=== PATIENT | male | born 1965 | race Caucasian/White ===

== ENCOUNTER → 2019-02-07 | Outpatient (CLI) | payer OTHER ==
--- NOTE | 2019-02-08 09:20 | MR ---
EXAMINATION TYPE: MR shoulder RT wo con DATE OF EXAM: 02/07/2019 COMPARISON: Right shoulder x-rays dated 01/02/2019 2 HISTORY: Right shoulder pain TECHNIQUE: Multiplanar, multisequence imaging of the right shoulder is performed without contrast. FINDINGS: Rotator Cuff: There is a partial thickness tear of the anterior and mid fibers of the supraspinatus measuring 1.5 x 1.0 cm. There is underlying moderate supraspinatus tendinosis. Mild infraspinatus tendinosis is seen . Masses demonstrated as alteration in the intrinsic fiber signal. No discrete tear of the infraspina tus. Teres minor is of unremarkable signal and morphology. There is a partial thickness tear of the s ubscapularis tendon severe tendinopathy. Acromioclavicular Joint: Moderate acromioclavicular arthropathy with capsular hypertrophy, subchondra l cystic formation and small osteophytes. No significant impingement on the supraspinatus. Glenohumeral Joint: There is a small joint effusion. There are very small subcortical cysts of the la teral humeral head and a small osteophyte of the medial femoral head. Labrum: There appears to be a tear of the posterior superior glenoid labrum with a [address] Biceps Tendon: The long head of biceps is in normal location within bicipital groove. However there i s a split tear involving the intra-articular and extra articular portion of the lung the biceps tendo n with debris in the peritendinous fluid, likely hemorrhage. The insertion on the biceps anchor is no t well seen and could relate to full-thickness tear or extensive tendinosis. Bone marrow signal: No focal abnormal marrow signal is appreciated. IMPRESSION: 1. High-grade tear of the interarticular portion of the long head of biceps is presumed (versus sever e tendinosis) as there is poor visualization at the insertion. Split tear of the extra-articular port ion of the biceps tendon extending into the intra-articular portion is also seen. 2. Partial-thickness tear of the anterior and mid fibers of the supraspinatus measuring 1.5 x 1.0 cm. 3. Partial thickness tear of the subscapularis. 4. Mild infraspinatus tendinopathy patella moderate supraspinatus tendinopathy, and severe subscapula ris tendinopathy. 5. Tear of the posterior superior glenoid labrum with associated 2 mm paralabral cyst. 6. Moderate acromioclavicular arthropathy without supraspinatus impingement. Mild glenohumeral arthro little. Small joint effusion.
== END | disposition home or self-care (01) ==
LOC: RADMRIMAIN 10:38
PROVIDERS: ATTEND Orthopaedic Surgery
DX: M75.111 Incomplete rotator cuff tear or rupture of right shoulder, not specified as traumatic (principal); M12.811 Other specific arthropathies, not elsewhere classified, right shoulder; S43.401A Unspecified sprain of right shoulder joint, initial encounter

== ENCOUNTER → 2019-04-12 | Outpatient (CLI) | payer OTHER ==
[2019-04-12 12:27] LABS: Basophils % (A) 1 %; Eosinophils # (A) 0.2 k/uL (0-0.7); Eosinophils % (A) 5 %; HCT 33.9 % (39.0-53.0); HGB 11.3 gm/dL (13.0-17.5); Lymphocytes # (A) 1.4 k/uL (1.0-4.8); Lymphocytes % (A) 37 %; MCH 35.7 pg (25.0-35.0); MCHC 33.2 g/dL (31.0-37.0); MCV 107.7 fL (80.0-100.0); Macrocytosis Moderate; Mean Platelet Volume 8.8; Monocytes # (A) 0.4 k/uL (0-1.0); Monocytes % (A) 9 %; Neutrophils # (A) 1.6 k/uL (1.3-7.7); Neutrophils % (A) 44 %; RBC 3.15 m/uL (4.30-5.90); RDW 12.8 % (11.5-15.5); WBC 3.8 k/uL (3.8-10.6)
[2019-04-12 12:47] LABS: INR 1.6 (<1.2); Partial Thromboplastin Time 32.1 sec (22.0-30.0)
[2019-04-12 13:19] LABS: Platelet Count 38 k/uL (150-450)
[2019-04-12 13:26] LABS: Anisocytosis (M) Present
== END | disposition home or self-care (01) ==
LOC: LABPAT 11:49
PROVIDERS: ATTEND Orthopaedic Surgery
DX: Z01.812 Encounter for preprocedural laboratory examination (principal); R79.1 Abnormal coagulation profile; M75.41 Impingement syndrome of right shoulder; R79.9 Abnormal finding of blood chemistry, unspecified
CPT/HCPCS: 36415; 85025; 85610; 85730

== ENCOUNTER → 2019-04-14 | Day surgery (SDC) | payer OTHER ==
[2019-04-11 13:40] VITALS: BMI 38.7
--- NOTE | 2019-04-13 09:45 | HP ---
HISTORY AND PHYSICAL CHIEF COMPLAINT: Right shoulder pain. HISTORY OF PRESENT ILLNESS: The patient is a 54-year-old, right-hand dominant, semi-retired gentleman who presents with progressive right shoulder pain for the past 6 months. He is having pain with overhead use and at night. He has tried medications in addition to therapy and an injection with minimal to no improvement. He notes the pain limits him and bothers him daily. PAST MEDICAL HISTORY: Significant for depression, hypertension, and cirrhosis of the liver. PAST SURGICAL HISTORY: Significant for left total hip arthroplasty. CURRENT MEDICATIONS: 1. Lexapro. 2. Lisinopril. 3. Pantoprazole. ALLERGIES: He notes allergies to PENICILLIN. FAMILY HISTORY: Significant for heart disease and cancer. SOCIAL HISTORY: Significant for daily alcohol use. REVIEW OF SYSTEMS: Sixteen-point review of systems otherwise reviewed and is noncontributory. PHYSICAL EXAMINATION: On examination, the patient is approximately 5 feet 7 inches, 235 pounds of endomorphic habitus. HEENT exam is nonfocal. Neck is supple. On examination of the right shoulder, he is tender about the anterior glenohumeral joint and the bicipital groove. He has moderate subacromial crepitus. Active range of motion forward elevation 140 degrees, external rotation with arm at side 55 degrees, internal rotation to L3. Motor strength is 5 minus over 5 for external rotation, 4+ over 5 for abduction. Impingement test, Neer test are positive. Cross-body adduction test is positive. His distal neurovascular exam otherwise appears intact in the right upper extremity. MRI report right shoulder shows evidence of a high-grade intra-articular tear of the long head of the biceps in addition to partial-thickness tear of the supraspinatus. There is significant acromioclavicular joint arthritis. IMPRESSION: 1. Right shoulder impingement with partial thickness rotator cuff tear. 2. Right proximal bicipital tendinosis. 3. Right acromioclavicular joint osteoarthrosis. 4. History of cirrhosis. RECOMMENDATIONS: I talked to the patient at length regarding his condition along with treatment options. At this point, he is quite symptomatic despite conservative measures and opts to proceed with surgery. We will plan to proceed with right shoulder arthroscopy with probable subacromial decompression, rotator cuff debridement versus repair, possible biceps tenotomy, in addition to possible distal clavicular resection. We will likely perform that as an outpatient procedure. Risks and benefits were discussed at length in layman's terms. MMODL / IJN: [id number] /
[~2019-04-14] MED LIST: DEXAMETHASONE SOD PHOSPHATE 10 MG/ML 1 ML VIAL IV ONE; HYDROmorphone 0.5 MG/0.5 ML SYRINGE IVP PRN; LACTATED RINGERS 1,000 ML IV SCH; LIDOCAINE 1% 20 ML VIAL (10MG/ML) FOR IV START INTRADERMA PRN; ONDANSETRON 4 MG/2 ML VIAL IVP ONE
[2019-04-14 07:41] VITALS: BP 121/65; PULSE 67; RESP 16; TEMP 98.7
[2019-04-14 08:33] LABS: INR 1.6 (<1.2); Partial Thromboplastin Time 32.2 sec (22.0-30.0); Prothrombin Time 16.1 sec (9.0-12.0)
[2019-04-14 08:42] LABS: Basophils # (A) 0.1 k/uL (0-0.2); Basophils % (A) 1 %; Eosinophils # (A) 0.2 k/uL (0-0.7); Eosinophils % (A) 5 %; HCT 34.6 % (39.0-53.0); HGB 11.6 gm/dL (13.0-17.5); Lymphocytes # (A) 1.5 k/uL (1.0-4.8); Lymphocytes % (A) 39 %; MCH 35.6 pg (25.0-35.0); MCHC 33.6 g/dL (31.0-37.0); MCV 106.1 fL (80.0-100.0); Macrocytosis Slight; Mean Platelet Volume 7.4; Monocytes # (A) 0.4 k/uL (0-1.0); Monocytes % (A) 10 %; Neutrophils # (A) 1.6 k/uL (1.3-7.7); Neutrophils % (A) 41 %; RBC 3.26 m/uL (4.30-5.90); RDW 12.7 % (11.5-15.5); WBC 3.8 k/uL (3.8-10.6)
[2019-04-14 08:48] LABS: Platelet Count 42 k/uL (150-450)
== END ==
LOC: OR 07:04
PROVIDERS: ATTEND Orthopaedic Surgery
DX: M75.41 Impingement syndrome of right shoulder (principal); Z53.09 Procedure and treatment not carried out because of other contraindication; M19.011 Primary osteoarthritis, right shoulder; M75.111 Incomplete rotator cuff tear or rupture of right shoulder, not specified as traumatic; M75.21 Bicipital tendinitis, right shoulder; I10 Essential (primary) hypertension; F32.9 Major depressive disorder, single episode, unspecified; K74.60 Unspecified cirrhosis of liver; Z96.642 Presence of left artificial hip joint; Z79.899 Other long term (current) drug therapy; Z88.0 Allergy status to penicillin; Z82.49 Family history of ischemic heart disease and other diseases of the circulatory system
CPT/HCPCS: 85025; 85610; 85730; J1100; J2405

== ENCOUNTER → 2021-06-17 | Outpatient (CLI) | payer BC ==
--- NOTE | 2021-06-17 08:48 | US ---
EXAMINATION TYPE: US liver DATE OF EXAM: 06/17/2021 COMPARISON: NONE CLINICAL HISTORY: K70.30 ALCOHOLIC CIRRHOSIS OF LIVER WITHOUT ASCITIES. EXAM MEASUREMENTS: Liver Length: 16.2 cm Gallbladder Wall: 0.3 cm CBD: 0.5 cm Right Kidney: 12.2 x 6.2 x 5.1 cm No significant ascites identified Pancreas: Obscured by bowel gas Liver: somewhat lobular contour Gallbladder: multiple tiny mobile stones with shadowing. Evidence for sonographic Wilks's sign: No CBD: wnl Right Kidney: No hydronephrosis or masses seen IMPRESSION: 1. Cholelithiasis. Gallbladder wall 0.3 cm which is at the limits of normal. 2. Mild hepatomegaly
== END | disposition home or self-care (01) ==
LOC: RADUSWWP 06:57
PROVIDERS: ATTEND Internal Medicine Gastroenterology
DX: K80.20 Calculus of gallbladder without cholecystitis without obstruction (principal); R16.0 Hepatomegaly, not elsewhere classified
CPT/HCPCS: 76705

== ENCOUNTER 2022-02-19 14:36 | Inpatient (IN) | payer BC ==
[2022-02-19 18:27] LABS: ALT 42 U/L (4-49); AST 118 U/L (17-59); African American GFR (CKD) >90 (>60 ml/min/1.73 sqM); Albumin 3.3 g/dL (3.5-5.0); Alkaline Phosphatase 203 U/L (38-126); Anion Gap 7 mmol/L; Blood Urea Nitrogen 11 mg/dL (9-20); Carbon Dioxide 27 mmol/L (22-30); Chloride 106 mmol/L (98-107); Glucose 131 mg/dL (74-99); Non-African American GFR(CKD) >90 (>60 ml/min/1.73 sqM); Potassium 3.8 mmol/L (3.5-5.1); Sodium 140 mmol/L (137-145); Total Bilirubin 1.8 mg/dL (0.2-1.3); Total Protein 7.1 g/dL (6.3-8.2)
[2022-02-19 18:35] LABS: INR 1.3 (<1.2); Partial Thromboplastin Time 26.4 sec (22.0-30.0); Prothrombin Time 12.9 sec (9.0-12.0)
--- NOTE | 2022-02-19 18:36 | ED ---
General Adult HPI - General Chief complaint: Weakness Stated complaint: Low hemoglobin-sent by PCP Time Seen by Provider: 02/19/22 18:23 Source: patient, family, RN notes reviewed, old records reviewed Mode of arrival: ambulatory Limitations: no limitations - History of Present Illness Initial comments: This is a nontoxic appearing 57-year-old male that presents to the emergency room with a family member stating he was sent by his primary care doctor, Dr Fernandez for low hemoglobin. Patient does have a history of cirrhosis diagnosed 4 years ago also followed by Dr. Galindo. His cirrhosis is related to alcohol use. He did drink today, 1 small bottle of wine from a four pack. States he has been having dark diarrhea over the past couple of weeks which started after taking antibiotics for a urinary tract infection however today he did have a normal bowel movement. Denies any hematochezia. Denies any abdominal pain. No nausea or vomiting. Denies any chest pain or difficulty in breathing. Does state he feels weak. -: week(s) (3) Severity scale (1-10): 0 Consistency: constant Improves with: rest Associated Symptoms: other (diarrhea, ankle swelling) - Related Data Home Medications Medication Instructions Recorded Confirmed Escitalopram [Lexapro] 30 mg PO DAILY 04/11/19 02/19/22 Pantoprazole [Protonix] 40 mg PO DAILY 04/11/19 02/19/22 Propranolol [Inderal] 10 mg PO TID 04/11/19 02/19/22 Folic Acid 1 mg PO DAILY 02/19/22 02/19/22 Furosemide [Lasix] 40 mg PO DAILY PRN 02/19/22 02/19/22 Spironolactone [Aldactone] 50 mg PO DAILY PRN 02/19/22 02/19/22 Tolterodine ER [Detrol LA] 4 mg PO DAILY@1600 02/19/22 02/19/22 Allergies Allergy/AdvReac Type Severity Reaction Status Date / Time Penicillins Allergy Rash/Hives Verified 02/19/22 20:06 Review of Systems ROS Statement: Those systems with pertinent positive or pertinent negative responses have been documented in the HPI. ROS Other: All systems not noted in ROS Statement are negative. Past Medical History Past Medical History: GERD/Reflux, Hypertension, Liver Disease Additional Past Medical History / Comment(s): esophageal varices and cirrhosis of liver History of Any Multi-Drug Resistant Organisms: None Reported Past Surgical History: Joint Replacement, Tonsillectomy Additional Past Surgical History / Comment(s): lt total hip Past Anesthesia/Blood Transfusion Reactions: No Reported Reaction Past Psychological History: Anxiety, Depression Smoking Status: Never smoker Past Alcohol Use History: Daily Past Drug Use History: None Reported - Past Family History Mother Family Medical History: Cancer Additional Family Medical History / Comment(s): lung cancer General Exam Limitations: no limitations General appearance: alert, in no apparent distress Head exam: Present: atraumatic, normocephalic Eye exam: Present: normal appearance. Absent: scleral icterus, conjunctival injection, periorbital swelling, periorbital tenderness ENT exam: Present: mucous membranes moist Neck exam: Absent: tenderness, meningismus Respiratory exam: Present: normal lung sounds bilaterally. Absent: respiratory distress, wheezes, rales, rhonchi, stridor, chest wall tenderness, accessory muscle use Cardiovascular Exam: Present: regular rate GI/Abdominal exam: Present: soft. Absent: tenderness, rigid Extremities exam: Present: full ROM, normal capillary refill, pedal edema (Bilateral pitting). Absent: tenderness, calf tenderness Back exam: Absent: tenderness, CVA tenderness (R), CVA tenderness (L), paraspinal tenderness, vertebral tenderness, rash noted Neurological exam: Present: alert, oriented X3 Psychiatric exam: Present: normal affect, normal mood Skin exam: Present: warm, dry, normal color, pallor. Absent: cyanosis, diaphoretic, petechiae Course Vital Signs 02/19/22 02/19/22 02/19/22 16:08 18:42 18:54 Temperature 96.8 F L Pulse Rate 80 76 Respiratory 16 20 18 Rate Blood Pressure 97/48 120/60 O2 Sat by Pulse 97 96 Oximetry 02/19/22 02/19/22 02/19/22 20:20 20:46 21:30 Temperature 98.1 F 98.4 F Pulse Rate 80 80 75 Respiratory 18 18 18 Rate Blood Pressure 121/54 118/62 119/55 O2 Sat by Pulse 95 96 95 Oximetry EKG Findings - EKG Results: EKG: sinus rhythm (Sinus rhythm with a ventricular rate of 81, AZ interval 0 .130, QRS 0.109, QTC 0.447 normal axis.) Medical Decision Making - Medical Decision Making Patient presents with increased weakness, sent by primary care doctor after having labs drawn today showing a hemoglobin of 5. He denies any active bleedi ng, no hematochezia or hematemesis. Does have history of cirrhosis. On physical exam patient does have bilateral lower extremity edema. Denies any chest pain or shortness of breath. Abdomen is nontender. Hemoglobin 5.7 with a hematocrit of 19.7. Platelet count 60. Occult blood negative. He denies any blood thinners. White blood cell count of 2.7 with a history of leukopenia. Total bili 1.8 down from previous of 4.8. Patient does have a history of cirrhosis due to alcohol use. BNP 250. Chest x-ray interpreted by me shows increase lung markings with no focal consolidation. Radiologist interpretation borderline cardiomegaly, old right-sided rib fractures. No acute heart failure. EKG interpreted by me shows sinus rhythm with a ventricular rate of 81, AZ interval 0.130, QRS 0.109, QTC 0.447; normal axis. Troponin negative at 0.012. Vital signs are stable. Patient was given 1 unit of packed RBCs in ER. Second unit requested by Macrina Rubalcava. He will be admitted to the hospital with consult to Dr. Galindo. He is agreeable to this plan of care. Case discussed with Dr. Ramirez - Lab Data Result diagrams: 02/19/22 18:14 02/19/22 18:14 Lab Results 02/19/22 02/19/22 02/19/22 Range/Units 18:10 18:14 18:14 WBC 2.7 L (3.8-10.6) k/uL RBC 2.20 L (4.30-5.90) m/uL Hgb 5.7 L* (13.0-17.5) gm/dL Hct 19.7 L* (39.0-53.0) % MCV 89.2 (80.0-100.0) fL MCH 25.6 (25.0-35.0) pg MCHC 28.8 L (31.0-37.0) g/dL RDW 16.1 H (11.5-15.5) % Plt Count 60 L (150-450) k/uL MPV 10.3 Neutrophils % 50 % Lymphocytes % 33 % Monocytes % 7 % Eosinophils % 5 % Basophils % 1 % Neutrophils # 1.4 (1.3-7.7) k/uL Lymphocytes # 0.9 L (1.0-4.8) k/uL Monocytes # 0.2 (0-1.0) k/uL Eosinophils # 0.1 (0-0.7) k/uL Basophils # 0.0 (0-0.2) k/uL Hypochromasia Marked Poikilocytosis Slight Anisocytosis Slight PT 12.9 H (9.0-12.0) sec INR 1.3 H (<1.2) APTT 26.4 (22.0-30.0) sec Sodium (137-145) mmol/L Potassium (3.5-5.1) mmol/L Chloride (98-107) mmol/L Carbon Dioxide (22-30) mmol/L Anion Gap mmol/L BUN (9-20) mg/dL Creatinine (0.66-1.25) mg/dL Est GFR (CKD-EPI)AfAm (>60 ml/min/1.73 sqM) Est GFR (CKD-EPI)NonAf (>60 ml/min/1.73 sqM) Glucose (74-99) mg/dL Calcium (8.4-10.2) mg/dL Magnesium (1.6-2.3) mg/dL Total Bilirubin (0.2-1.3) mg/dL AST (17-59) U/L ALT (4-49) U/L Alkaline Phosphatase (38-126) U/L Troponin I (0.000-0.034) ng/mL NT-Pro-B Natriuret Pep pg/mL Total Protein (6.3-8.2) g/dL Albumin (3.5-5.0) g/dL Stool Occult Blood (Negative) Blood Type B Positive Blood Type Confirm Blood Type Recheck No Previous Record Bld Type Recheck Status CABO Indicated Antibody Screen NEGATIVE Crossmatch See Detail Spec Expiration Date 02/22/2022 - 231302/19/22 02/19/22 02/19/22 Range/Units 18:14 18:14 18:14 WBC (3.8-10.6) k/uL RBC (4.30-5.90) m/uL Hgb (13.0-17.5) gm/dL Hct (39.0-53.0) % MCV (80.0-100.0) fL MCH (25.0-35.0) pg MCHC (31.0-37.0) g/dL RDW (11.5-15.5) % Plt Count (150-450) k/uL MPV Neutrophils % % Lymphocytes % % Monocytes % % Eosinophils % % Basophils % % Neutrophils # (1.3-7.7) k/uL Lymphocytes # (1.0-4.8) k/uL Monocytes # (0-1.0) k/uL Eosinophils # (0-0.7) k/uL Basophils # (0-0.2) k/uL Hypochromasia Poikilocytosis Anisocytosis PT (9.0-12.0) sec INR (<1.2) APTT (22.0-30.0) sec Sodium 140 (137-145) mmol/L Potassium 3.8 (3.5-5.1) mmol/L Chloride 106 (98-107) mmol/L Carbon Dioxide 27 (22-30) mmol/L Anion Gap 7 mmol/L BUN 11 (9-20) mg/dL Creatinine 0.88 (0.66-1.25) mg/dL Est GFR (CKD-EPI)AfAm >90 (>60 ml/min/1.73 sqM) Est GFR (CKD-EPI)NonAf >90 (>60 ml/min/1.73 sqM) Glucose 131 H (74-99) mg/dL Calcium 8.0 L (8.4-10.2) mg/dL Magnesium (1.6-2.3) mg/dL Total Bilirubin 1.8 H (0.2-1.3) mg/dL AST 118 H (17-59) U/L ALT 42 (4-49) U/L Alkaline Phosphatase 203 H (38-126) U/L Troponin I <0.012 (0.000-0.034) ng/mL NT-Pro-B Natriuret Pep 250 pg/mL Total Protein 7.1 (6.3-8.2) g/dL Albumin 3.3 L (3.5-5.0) g/dL Stool Occult Blood (Negative) Blood Type Blood Type Confirm Blood Type Recheck Bld Type Recheck Status Antibody Screen Crossmatch Spec Expiration Date 1202/19/22 02/19/22 Range/Units 18:14 19:12 19:51 WBC (3.8-10.6) k/uL RBC (4.30-5.90) m/uL Hgb (13.0-17.5) gm/dL Hct (39.0-53.0) % MCV (80.0-100.0) fL MCH (25.0-35.0) pg MCHC (31.0-37.0) g/dL RDW (11.5-15.5) % Plt Count (150-450) k/uL MPV Neutrophils % % Lymphocytes % % Monocytes % % Eosinophils % % Basophils % % Neutrophils # (1.3-7.7) k/uL Lymphocytes # (1.0-4.8) k/uL Monocytes # (0-1.0) k/uL Eosinophils # (0-0.7) k/uL Basophils # (0-0.2) k/uL Hypochromasia Poikilocytosis Anisocytosis PT (9.0-12.0) sec INR (<1.2) APTT (22.0-30.0) sec Sodium (137-145) mmol/L Potassium (3.5-5.1) mmol/L Chloride (98-107) mmol/L Carbon Dioxide (22-30) mmol/L Anion Gap mmol/L BUN (9-20) mg/dL Creatinine (0.66-1.25) mg/dL Est GFR (CKD-EPI)AfAm (>60 ml/min/1.73 sqM) Est GFR (CKD-EPI)NonAf (>60 ml/min/1.73 sqM) Glucose (74-99) mg/dL Calcium (8.4-10.2) mg/dL Magnesium 1.6 (1.6-2.3) mg/dL Total Bilirubin (0.2-1.3) mg/dL AST (17-59) U/L ALT (4-49) U/L Alkaline Phosphatase (38-126) U/L Troponin I (0.000-0.034) ng/mL NT-Pro-B Natriuret Pep pg/mL Total Protein (6.3-8.2) g/dL Albumin (3.5-5.0) g/dL Stool Occult Blood Negative (Negative) Blood Type Blood Type Confirm B Positive Blood Type Recheck Bld Type Recheck Status Antibody Screen Crossmatch Spec Expiration Date Disposition Clinical Impression: Anemia, Weakness Disposition: ADMITTED IP TO THIS [facility] Referrals: Parmjit Fernandez MD [Primary Care Provider] - 1-2 days Decision Date: 02/19/22 Decision Time: 19:43
[2022-02-19 18:38] LABS: Anisocytosis Slight; Basophils % (A) 1 %; Eosinophils # (A) 0.1 k/uL (0-0.7); Eosinophils % (A) 5 %; Hypochromasia Marked; Lymphocytes # (A) 0.9 k/uL (1.0-4.8); Lymphocytes % (A) 33 %; MCH 25.6 pg (25.0-35.0); MCHC 28.8 g/dL (31.0-37.0); MCV 89.2 fL (80.0-100.0); Mean Platelet Volume 10.3; Monocytes # (A) 0.2 k/uL (0-1.0); Monocytes % (A) 7 %; Neutrophils # (A) 1.4 k/uL (1.3-7.7); Neutrophils % (A) 50 %; Poikilocytosis Slight; RDW 16.1 % (11.5-15.5); WBC 2.7 k/uL (3.8-10.6)
[2022-02-19 18:49] LABS: HCT 19.7 % (39.0-53.0); HGB 5.7 gm/dL (13.0-17.5); Platelet Count 60 k/uL (150-450)
--- NOTE | 2022-02-19 19:12 | XR ---
EXAMINATION TYPE: XR chest 2V DATE OF EXAM: 02/19/2022 COMPARISON: NONE HISTORY: Weakness TECHNIQUE: 2 views FINDINGS: There is no heart failure nor confluent pneumonic infiltrate. Heart is top normal in size. There are no hilar masses. Bony thorax is intact. IMPRESSION: Borderline cardiomegaly. No obvious heart failure. Old right-sided healed rib fractures a re noted.
[2022-02-19] MEDS ORDERED: NALOXONE 0.4 MG/ML 1 ML VIAL IV PRN (20:09)
[2022-02-19] MEDS ORDERED: FUROSEMIDE 40 MG TAB PO PRN (20:11)
[2022-02-19] MEDS ORDERED: SPIRONOLACTONE 25 MG TAB PO PRN (20:11)
[2022-02-19] MEDS ORDERED: PANTOPRAZOLE 40 MG TABLET PO SCH (20:15)
[2022-02-19] MEDS: PROPRANOLOL 10 MG TAB PO SCH (22:44)
[2022-02-20 07:50] LABS: Basophils % (A) 0 %; Eosinophils # (A) 0.1 k/uL (0-0.7); Eosinophils % (A) 4 %; HCT 21.3 % (39.0-53.0); Hypochromasia Marked; Lymphocytes # (A) 0.6 k/uL (1.0-4.8); Lymphocytes % (A) 28 %; MCH 26.9 pg (25.0-35.0); MCHC 30.6 g/dL (31.0-37.0); MCV 88.1 fL (80.0-100.0); Mean Platelet Volume 9.1; Monocytes # (A) 0.2 k/uL (0-1.0); Monocytes % (A) 9 %; Neutrophils # (A) 1.1 k/uL (1.3-7.7); Neutrophils % (A) 54 %; Poikilocytosis Marked; RBC 2.42 m/uL (4.30-5.90); RDW 15.6 % (11.5-15.5); WBC 2.1 k/uL (3.8-10.6)
[2022-02-20] MEDS ORDERED: FUROSEMIDE 10 MG/ML 4 ML VIAL IV STA (07:51)
--- NOTE | 2022-02-20 07:54 | P.HPIM ---
History of Present Illness This is a pleasant 57 years old male with past medical history of GERD/Reflux, Hypertension,esophageal varices and cirrhosis of liver, anxiety and depression Patient presents because he felt exhausted with exertional dyspnea and leg stool. He states that she's been having UTI symptoms for the last 2 weeks, he went to his PCP Dr. Sha khalil who prescribed him antibiotics other than Cipro he felt partially better but he started noticing black stool but no fresh blood and no abdominal pain or vomiting or other symptoms and he noticed that black stool state after he finished his course of antibiotics but lately he was getting more exhausted more exertional dyspnea and so he got worried and decided to check himself with his PCP again and his hemoglobin was low 5.7, speech called him and asked him to come to emergency room He states he smokes cigar occasionally but he declines nicotine patch, he was counseled to quit. He still drinks 2-3 cups of wine every day, no liquor. He denies illicit tracts. Patient denies any NSAID use and he was using only Tylenol when necessary Vital signs stable, patient is afebrile. Hemoglobin on admission was low at 5.7, previously was 10.1 about 6 months ago. Also WBC is 2.7, platelet count 60 but this is chronic INR is 1.3 BMP is unremarkable, glucose 131, magnesium 1.6. Bilirubin slightly elevated 1.8, AST slightly at 118, ALT is normal at 42. Occult blood in the stool is negative. EKG showing normal sinus rhythm at [address]-T changes Chest x-ray: Borderline cardiomegaly, no other acute abnormality Patient to resume home medication and admitted with GI consult Patient got 2 units of blood transfusion last night Review of Systems Review of systems CONSTITUTIONAL: No fever, no malaise, no fatigue. HEENT: No recent visual problems or hearing problems. Denied any sore throat. CARDIOVASCULAR: No orthopnea, PND, no palpitations, no syncope. PULMONARY: No shortness of breath, no cough, no hemoptysis. GASTROINTESTINAL: No diarrhea, no nausea, no vomiting, no abdominal pain. Normoactive bowel sounds. NEUROLOGICAL: No headaches, no weakness, no numbness. HEMATOLOGICAL: Denies any bleeding or petechiae. GENITOURINARY: Denies any burning micturition, frequency, or urgency. MUSCULOSKELETAL/RHEUMATOLOGICAL: Denies any joint pain, swelling, or any muscle pain. ENDOCRINE: Denies any polyuria or polydipsia. Past Medical History Past Medical History: GERD/Reflux, Hypertension, Liver Disease Additional Past Medical History / Comment(s): esophageal varices and cirrhosis of liver History of Any Multi-Drug Resistant Organisms: None Reported Past Surgical History: Joint Replacement, Tonsillectomy Additional Past Surgical History / Comment(s): lt total hip Past Anesthesia/Blood Transfusion Reactions: No Reported Reaction Past Psychological History: Anxiety, Depression Smoking Status: Never smoker Past Alcohol Use History: Daily Past Drug Use History: None Reported - Past Family History Mother Family Medical History: Cancer Additional Family Medical History / Comment(s): lung cancer Medications and Allergies Home Medications Medication Instructions Recorded Confirmed Type Escitalopram [Lexapro] 30 mg PO DAILY 04/11/19 02/19/22 History Pantoprazole [Protonix] 40 mg PO DAILY 04/11/19 02/19/22 History Propranolol [Inderal] 10 mg PO TID 04/11/19 02/19/22 History Folic Acid 1 mg PO DAILY 02/19/22 02/19/22 History Furosemide [Lasix] 40 mg PO DAILY PRN 02/19/22 02/19/22 History Spironolactone [Aldactone] 50 mg PO DAILY PRN 02/19/22 02/19/22 History Tolterodine ER [Detrol LA] 4 mg PO DAILY@1600 02/19/22 02/19/22 History Allergies Allergy/AdvReac Type Severity Reaction Status Date / Time Penicillins Allergy Rash/Hives Verified 02/19/22 20:06 Physical Exam Vitals: Vital Signs Temp Pulse Resp BP Pulse Ox 02/20/22 02:22 97.9 F 78 18 132/60 95 02/19/22 23:54 98.4 F 80 18 120/55 95 02/19/22 23:51 97.9 F 78 18 132/60 95 02/19/22 23:35 98.4 F 80 18 124/58 95 02/19/22 22:40 80 18 124/76 95 02/19/22 21:30 75 18 119/55 95 02/19/22 20:46 98.4 F 80 18 118/62 96 02/19/22 20:20 98.1 F 80 18 121/54 95 02/19/22 18:54 76 18 120/60 96 02/19/22 18:42 20 02/19/22 16:08 96.8 F L 80 16 97/48 97 Intake and Output 02/19/22 02/19/22 02/20/22 14:59 22:59 06:59 Intake Total 287 310 Balance 287 310 Intake: Blood Product 287 310 Rc As-1 Unit 310 [id number] Rc Pheresis As-3 Unit 287 [id number] Other: Weight 113.398 kg -GENERAL: The patient is alert and oriented x3, not in any acute distress. Well obese HEENT: Pupils are round and equally reacting to light. EOMI. No scleral icterus. No conjunctival pallor. Normocephalic, atraumatic. No pharyngeal erythema. No thyromegaly. CARDIOVASCULAR: S1 and S2 present. No murmurs, rubs, or gallops. PULMONARY: Chest is clear to auscultation, no wheezing or crackles. ABDOMEN: Soft, nontender, nondistended, normoactive bowel sounds. No palpable organomegaly. MUSCULOSKELETAL: No joint swelling or deformity. -EXTREMITIES: No cyanosis, clubbing,. Bilateral patellar leg edema 2+ NEUROLOGICAL: Gross neurological examination did not reveal any focal deficits. SKIN: No rashes. no petechiae. Results CBC & Chem 7: 02/19/22 18:14 02/19/22 18:14 Labs: Abnormal Lab Results - Last 24 Hours (Table) 02/19/22 02/19/22 02/19/22 Range/Units 18:10 18:14 18:14 WBC 2.7 L (3.8-10.6) k/uL RBC 2.20 L (4.30-5.90) m/uL Hgb 5.7 L* (13.0-17.5) gm/dL Hct 19.7 L* (39.0-53.0) % MCHC 28.8 L (31.0-37.0) g/dL RDW 16.1 H (11.5-15.5) % Plt Count 60 L (150-450) k/uL Lymphocytes # 0.9 L (1.0-4.8) k/uL PT 12.9 H (9.0-12.0) sec INR 1.3 H (<1.2) Glucose (74-99) mg/dL Calcium (8.4-10.2) mg/dL Total Bilirubin (0.2-1.3) mg/dL AST (17-59) U/L Alkaline Phosphatase (38-126) U/L Albumin (3.5-5.0) g/dL Crossmatch See Detail 02/19/22 Range/Units 18:14 WBC (3.8-10.6) k/uL RBC (4.30-5.90) m/uL Hgb (13.0-17.5) gm/dL Hct (39.0-53.0) % MCHC (31.0-37.0) g/dL RDW (11.5-15.5) % Plt Count (150-450) k/uL Lymphocytes # (1.0-4.8) k/uL PT (9.0-12.0) sec INR (<1.2) Glucose 131 H (74-99) mg/dL Calcium 8.0 L (8.4-10.2) mg/dL Total Bilirubin 1.8 H (0.2-1.3) mg/dL AST 118 H (17-59) U/L Alkaline Phosphatase 203 H (38-126) U/L Albumin 3.3 L (3.5-5.0) g/dL Crossmatch Assessment and Plan Assessment: Acute pancytopenia including severe anemia with hemoglobin 5.7 on admission Probable UTI, recently treated but is still symptomatic Alcohol use disorder History of esophageal varices Hepatic cirrhosis, mostly alcohol related History of GERD gastroesophageal reflux disease Anxiety, depression, no active issue Obesity with BMI 40.4 Plan: Monitor hemoglobin Hold anticoagulation Follow-up with GI consult team. Possible EGD per GI team Also consult hematology team Patient was counseled to quit drinking Start IV Lasix 40 mg twice daily and Aldactone 50 mg daily and close monitoring of creatinine, electrolytes and input output Labs and medication were reviewed.. Continue same treatment. Continue with symptomatic treatment. Resume home medication. Monitor labs and vitals. DVT and GI prophylaxis. Further recommendations as per clinical course of the patient DVT prophylaxis: noheparin in view of her severe anemia and thrombocytopenia, which are relative contraindication GI Prophylaxis: Pepcid PT/OT: Pending Prognosis is guarded
[2022-02-20 08:04] LABS: HGB 6.5 gm/dL (13.0-17.5); Platelet Count 47 k/uL (150-450)
[2022-02-20 08:14] LABS: ALT 36 U/L (4-49); AST 95 U/L (17-59); African American GFR (CKD) >90 (>60 ml/min/1.73 sqM); Albumin 2.7 g/dL (3.5-5.0); Albumin/Globulin Ratio 0.8; Alkaline Phosphatase 159 U/L (38-126); Anion Gap 3 mmol/L; Blood Urea Nitrogen 11 mg/dL (9-20); Calcium 7.5 mg/dL (8.4-10.2); Carbon Dioxide 28 mmol/L (22-30); Chloride 108 mmol/L (98-107); Globulin 3.3 g/dL; Glucose 103 mg/dL (74-99); Non-African American GFR(CKD) >90 (>60 ml/min/1.73 sqM); Potassium 3.9 mmol/L (3.5-5.1); Sodium 139 mmol/L (137-145)
[2022-02-20] MEDS: FOLIC ACID 1 MG TAB PO SCH (10:32)
[2022-02-20] MEDS: SPIRONOLACTONE 25 MG TAB PO SCH (10:32)
[2022-02-20] MEDS: PANTOPRAZOLE 40 MG/10 ML VIAL IVP SCH ×2 (10:32→20:32)
--- NOTE | 2022-02-20 11:06 | P.CONS ---
History of Present Illness - Reason for Consult Consult date: 02/20/22 Anemia Requesting physician: Dwayne Madrigal - Chief Complaint Weakness, low hemoglobin - History of Present Illness This 57-year-old male who presented to the emergency department directed by his primary care physician for low hemoglobin. Patient has been experiencing increa sed weakness and exertional shortness of breath for the last several days. Patient states he had had some dark diarrhea for the last 2 days duration now patient states it is normal color. States he had a urinary tract infection and was treated a couple weeks ago with antibiotics, he states that he stopped that about 10 days ago, patient states side effect was dark stools however he continued to have dark stools. Patient has a past medical history including alcohol abuse, alcoholic cirrhosis of the liver with esophageal varices, GERD, and hypertension. He states his last EGD was approximately 2 years ago at [facility] which was significant for esophageal varices. Report not available at this time. Patient states he is still drinking 1-2 glasses of wine a day. He denies any abdominal pain, nausea or vomiting. Denies any hematemesis, no bright red blood per rectum. Patient currently takes Inderal 10 mg 3 times a day, Aldactone 50 mg daily and Lasix 40 mg daily. Review of Systems REVIEW OF SYSTEMS: CARDIOPULMONARY: No chest pain. Shortness of breath, dyspnea on exertion. Gastrointestinal: Denies any abdominal pain or epigastric pain. No nausea or vomiting. No hematemesis, coffee-ground emesis. No rectal bleeding, reported dark/black stool for the last 2 weeks duration. GENITOURINARY: No dysuria or hematuria. MUSCULOSKELETAL: Reports normal range of motion. SKIN: No rashes. No jaundice. ENDOCRINE: No chills, fevers. No excessive weight gain or loss. No polydipsia or polyuria. PSYCHIATRIC: Unremarkable. NEUROLOGY: No change in mental status. Denies dizziness, headache. ENT: Vision unremarkable. CONSTITUTIONAL: No recent weight loss. No fever, chills, night sweats. Past Medical History Past Medical History: GERD/Reflux, Hypertension, Liver Disease Additional Past Medical History / Comment(s): esophageal varices and cirrhosis of liver History of Any Multi-Drug Resistant Organisms: None Reported Past Surgical History: Joint Replacement, Tonsillectomy Additional Past Surgical History / Comment(s): lt total hip Past Anesthesia/Blood Transfusion Reactions: No Reported Reaction Past Psychological History: Anxiety, Depression Smoking Status: Never smoker Past Alcohol Use History: Daily Past Drug Use History: None Reported - Past Family History Mother Family Medical History: Cancer Additional Family Medical History / Comment(s): lung cancer Medications and Allergies Home Medications Medication Instructions Recorded Confirmed Type Escitalopram [Lexapro] 30 mg PO DAILY 04/11/19 02/19/22 History Pantoprazole [Protonix] 40 mg PO DAILY 04/11/19 02/19/22 History Propranolol [Inderal] 10 mg PO TID 04/11/19 02/19/22 History Folic Acid 1 mg PO DAILY 02/19/22 02/19/22 History Furosemide [Lasix] 40 mg PO DAILY PRN 02/19/22 02/19/22 History Spironolactone [Aldactone] 50 mg PO DAILY PRN 02/19/22 02/19/22 History Tolterodine ER [Detrol LA] 4 mg PO DAILY@1600 02/19/22 02/19/22 History Allergies Allergy/AdvReac Type Severity Reaction Status Date / Time Penicillins Allergy Rash/Hives Verified 02/19/22 20:06 Physical Exam Vitals: Vital Signs Temp Pulse Resp BP Pulse Ox 02/20/22 02:22 97.9 F 78 18 132/60 95 02/19/22 23:54 98.4 F 80 18 120/55 95 02/19/22 23:51 97.9 F 78 18 132/60 95 02/19/22 23:35 98.4 F 80 18 124/58 95 02/19/22 22:40 80 18 124/76 95 02/19/22 21:30 75 18 119/55 95 02/19/22 20:46 98.4 F 80 18 118/62 96 02/19/22 20:20 98.1 F 80 18 121/54 95 02/19/22 18:54 76 18 120/60 96 02/19/22 18:42 20 02/19/22 16:08 96.8 F L 80 16 97/48 97 Intake and Output 02/19/22 02/19/22 02/20/22 14:59 22:59 06:59 Intake Total 287 310 Balance 287 310 Intake: Blood Product 287 310 Rc As-1 Unit 310 [id number] Rc Pheresis As-3 Unit 287 [id number] Other: Weight 113.398 kg General appearance: The patient is alert, oriented, appears in no acute distress. HET: Head is normocephalic and atraumatic. Conjunctiva pink. Sclera anicteric. Neck: Supple without lymphadenopathy. Trachea midline. Heart: S1 S2. Regular rate and rhythm. Lungs: Clear to auscultation. Abdomen: Soft, nontender, nondistended with bowel sounds. No guarding or rigidity. Skin: No rashes. No jaundice. Extremities: Normal skin color and turgor. No pedal edema. Neurological: No focal deficits. Alert and oriented x3. Results CBC & Chem 7: 02/20/22 07:33 02/20/22 07:33 Labs: Abnormal Lab Results - Last 24 Hours (Table) 02/19/22 02/19/22 02/19/22 Range/Units 18:10 18:14 18:14 WBC 2.7 L (3.8-10.6) k/uL RBC 2.20 L (4.30-5.90) m/uL Hgb 5.7 L* (13.0-17.5) gm/dL Hct 19.7 L* (39.0-53.0) % MCHC 28.8 L (31.0-37.0) g/dL RDW 16.1 H (11.5-15.5) % Plt Count 60 L (150-450) k/uL Lymphocytes # 0.9 L (1.0-4.8) k/uL PT 12.9 H (9.0-12.0) sec INR 1.3 H (<1.2) Glucose (74-99) mg/dL Calcium (8.4-10.2) mg/dL Total Bilirubin (0.2-1.3) mg/dL AST (17-59) U/L Alkaline Phosphatase (38-126) U/L Albumin (3.5-5.0) g/dL Crossmatch See Detail 02/19/22 Range/Units 18:14 WBC (3.8-10.6) k/uL RBC (4.30-5.90) m/uL Hgb (13.0-17.5) gm/dL Hct (39.0-53.0) % MCHC (31.0-37.0) g/dL RDW (11.5-15.5) % Plt Count (150-450) k/uL Lymphocytes # (1.0-4.8) k/uL PT (9.0-12.0) sec INR (<1.2) Glucose 131 H (74-99) mg/dL Calcium 8.0 L (8.4-10.2) mg/dL Total Bilirubin 1.8 H (0.2-1.3) mg/dL AST 118 H (17-59) U/L Alkaline Phosphatase 203 H (38-126) U/L Albumin 3.3 L (3.5-5.0) g/dL Crossmatch Assessment and Plan (1) Normochromic normocytic anemia Narrative/Plan: 57-year-old with a history of alcoholic cirrhosis of the liver who admits to sti ll drinking at least 1-2 glasses of wine daily came in with shortness of breath, dyspnea on exertion as well as weakness and low hemoglobin. Patient had been having symptoms for the last few days duration. He was seen couple weeks ago for urinary tract infection and was treated with antibiotics which stated his stool could be dark. He stopped his antibiotics 10 days ago continued to have black stool with increased weakness and shortness of breath. He had outpatient labs done that showed he was anemic and was told to come to the emergency department. He does have a history of esophageal varices last EGD approximately 2 years ago done at [facility] with no available report at this time. Possible etiologies include esophageal bleed, AVM, peptic ulcer disease gastritis, esophagitis or other possible etiologies. Continue current medications, and plan for EGD this afternoon. Transfuse for hemoglobin less than 7. Current Visit: Yes Status: Acute Code(s): D64.9 - ANEMIA, UNSPECIFIED SNOM ED Code(s): 55163232 (2) Alcohol abuse Current Visit: Yes Status: Acute Code(s): F10.10 - ALCOHOL ABUSE, UNCOMPLICATED SNOMED Code(s): 67550405 (3) Alcoholic cirrhosis of liver Current Visit: Yes Status: Acute Code(s): K70.30 - ALCOHOLIC CIRRHOSIS OF LIVER WITHOUT ASCITES SNOMED Code(s): 658591944 (4) History of esophageal varices Current Visit: Yes Status: Acute Code(s): Z87.19 - PERSONAL HISTORY OF OTHER DISEASES OF THE DIGESTIVE SYSTEM SNOMED Code(s): 41936412530174148 Plan: 1. Continue symptomatic and supportive care 2. Nothing by mouth except for medications 3. Daily CBC, transfuse for hemoglobin less than 7 4. Recommend alcohol abstinence, again discussed with patient 5. Continue Inderal and diuretics as ordered 6. 1 unit of blood ordered 7. Plan for EGD this afternoon, with further recommendations to follow Thank you for allowing us to participate in the care of the patient, the GI service will sign off, gastroenterology will not be available at the hospital this weekend and through next week. If further evaluation by gastroenterology is required the patient will need transfer as per the primary team's discretion. Dr. America Galindo I agree with the dictator's note, documented as a scribe by Marilee Macedo.
[2022-02-20] MEDS: PROPRANOLOL 10 MG TAB PO SCH ×3 (12:43→22:29)
[2022-02-20] MEDS: ESCITALOPRAM 10 MG TAB PO SCH (12:53)
[2022-02-20] MEDS: OXYBUTYNIN 10 MG TAB.ER.24 PO SCH (16:27)
[2022-02-20] MEDS ORDERED: PROPOFOL 10 MG/ML 20 ML VIAL IV ONE (17:00)
[2022-02-20] MEDS ORDERED: LIDOCAINE 2% INJ 20 MG/ML (2 ML VIAL) ONE (17:00)
[2022-02-20] MEDS ORDERED: MIDAZOLAM 2 MG/2 ML VIAL ONE (17:00)
[2022-02-20] MEDS ORDERED: fentaNYL (PF) 50 MCG/ML 2 ML AMP ONE (17:00)
--- NOTE | 2022-02-20 17:13 | P.PCN ---
Date of Procedure: 02/20/22 Procedure(s) Performed: BRIEF HISTORY: Patient is a 57-year-old, pleasant, white male admitted hospital with severe symptomatic anemia and hemoglobin of 5.7 g/dL requiring 3 unit of PRBC transfusion. Patient has history of alcoholic liver disease with cirrhosis and portal hypertension.. Repeat CBC is still pending. Patient denies any active bleeding. He noticed some dark colored stools for the last few days duration. His and scheduled for an upper endoscopy to evaluate for upper GI source of bleeding PROCEDURE PERFORMED: Esophagogastroduodenoscopy. PREOPERATIVE DIAGNOSIS: Severe symptomatic anemia and dark colored stools. IV sedation per anesthesia. PROCEDURE: After informed consent was obtained, the patient was brought into the endoscopy unit. IV sedation was administered by Anesthesia under continuous monitoring. Initially the Olympus GIF-140 video endoscope was inserted into the mouth. Esophagus intubated without any difficulty. It was gradually advanced into the stomach and duodenum and carefully examined. No active bleeding identified. The bulb and the second part of the duodenum appeared normal. The scope at this time was withdrawn to the stomach, adequately insufflated with air, and upon careful examination, mucosa of the antrum, had mild gastritis and small telangiectasias identified with no active bleeding. Mucosa of the body, cardia and the fundus appeared normal. Small fundal varices identified. No stigmata of recent bleed or active bleeding noted. The scope was then withdrawn into the esophagus. The GE junction was located at 39 cm from the incisors. The esophagus appeared normal. There were no erosions or ulcerations seen, no esophageal varices and the patient tolerated the procedure well. IMPRESSION: 1. No active upper GI bleed. 2. Small gastric fundal varices noted with no active bleeding. No esophageal varices seen. 3. Antral gastritis RECOMMENDATIONS: The findings of this examination were discussed with the patient . He'll be started on clear liquid diet and diet can be advanced as tolerated.. Monitor CBC daily. Continue Protonix 40 mg daily.
--- NOTE | 2022-02-20 17:56 | P.CONS ---
History of Present Illness - Reason for Consult Consult date: 02/20/22 Severe anemia, pancytopenia, melena - History of Present Illness The patient is a 57-year-old white male, known to us service. He was diffusely seen by in 2019, for low platelet count in the 50-60,000 range, as well as borderline hemoglobin and WBC. The patient's workup was negative. He had a history of heavy ongoing alcohol use, as well as liver cirrhosis. Therefore his cytopenias were felt to be due to chronic liver disease as well as direct marrow toxicity. As there is no specific hematology intervention for the same other than supportive care if needed, further hematology follow-up was not recommended at the time. The patient was admitted this time with about a 2 to three-week history of bl ack stools, and progressive weakness. Hemoglobin was 5.7 on admission, with the visit 2.7, and platelets 60,000. The patient received 2 units of PRBC with hemoglobin increasing to 7.2. He had an additional unit of blood given at the time. Repeat CBC showed WBC of 2.1, and platelets of 47. His coags were only mildly disordered with a PT 12.9 and INR 1.2. The patient is set up to have endoscopic workup later today. He reports continued consumption of alcohol. He states that he has quit intermittently, and was over for about 3 months for then started drinking again. He states that his current consumption is between 3-5 drinks per day and additional wine. Review of Systems Constitutional: Reports weakness Eyes: denies blurred vision, denies pain Ears: deny: decreased hearing, ear discharge, earache, tinnitus Ears, nose, mouth and throat: Denies headache, Denies sore throat Cardiovascular: Reports dyspnea on exertion Respiratory: Denies cough Gastrointestinal: Reports dyspepsia, Denies abdominal pain, Denies diarrhea, Denies nausea, Denies vomiting Musculoskeletal: Reports muscle weakness Integumentary: Denies pruritus, Denies rash Neurological: Reports weakness Psychiatric: Reports as per HPI Endocrine: Reports fatigue, Reports weight change Hematologic/Lymphatic: Reports as per HPI Past Medical History Past Medical History: GERD/Reflux, Hypertension, Liver Disease Additional Past Medical History / Comment(s): esophageal varices and cirrhosis of liver History of Any Multi-Drug Resistant Organisms: None Reported Past Surgical History: Joint Replacement, Tonsillectomy Additional Past Surgical History / Comment(s): lt total hip Past Anesthesia/Blood Transfusion Reactions: No Reported Reaction Past Psychological History: Anxiety, Depression Smoking Status: Never smoker Past Alcohol Use History: Daily Additional Past Alcohol Use History / Comment(s): occasional cigar, Past Drug Use History: None Reported - Past Family History Mother Family Medical History: Cancer Additional Family Medical History / Comment(s): lung cancer Medications and Allergies Home Medications Medication Instructions Recorded Confirmed Type Escitalopram [Lexapro] 30 mg PO DAILY 04/11/19 02/19/22 History Pantoprazole [Protonix] 40 mg PO DAILY 04/11/19 02/19/22 History Propranolol [Inderal] 10 mg PO TID 04/11/19 02/19/22 History Folic Acid 1 mg PO DAILY 02/19/22 02/19/22 History Furosemide [Lasix] 40 mg PO DAILY PRN 02/19/22 02/19/22 History Spironolactone [Aldactone] 50 mg PO DAILY PRN 02/19/22 02/19/22 History Tolterodine ER [Detrol LA] 4 mg PO DAILY@1600 02/19/22 02/19/22 History Allergies Allergy/AdvReac Type Severity Reaction Status Date / Time Penicillins Allergy Rash/Hives Verified 02/19/22 20:06 Physical Exam Vitals: Vital Signs Temp Pulse Pulse Resp BP BP Pulse Ox 02/20/22 17:45 98.2 F 73 16 143/68 95 02/20/22 15:55 99.2 F 80 18 165/68 95 02/20/22 13:11 98.2 F 73 18 145/68 95 02/20/22 12:51 98.4 F 80 18 134/63 94 L 02/20/22 12:35 98.2 F 76 18 141/62 94 L 02/20/22 09:19 81 18 155/69 95 02/20/22 02:22 97.9 F 78 18 132/60 95 02/19/22 23:54 98.4 F 80 18 120/55 95 02/19/22 23:51 97.9 F 78 18 132/60 95 02/19/22 23:35 98.4 F 80 18 124/58 95 02/19/22 22:40 80 18 124/76 95 02/19/22 21:30 75 18 119/55 95 02/19/22 20:46 98.4 F 80 18 118/62 96 02/19/22 20:20 98.1 F 80 18 121/54 95 02/19/22 18:54 76 18 120/60 96 02/19/22 18:42 20 Intake and Output 02/20/22 02/20/22 02/20/22 06:59 14:59 22:59 Intake Total 310 0 310 Balance 310 0 310 Intake: Blood Product 310 0 310 Rc As-1 Unit 310 [id number] Rc As-1 Unit 0 310 [id number] Other: Weight 113.398 kg - Constitutional General appearance: no acute distress - EENT Eyes: EOMI, PERRLA ENT: hearing grossly normal, normal oropharynx - Neck Neck: no lymphadenopathy Thyroid: bilateral: normal size - Respiratory Respiratory: bilateral: CTA - Cardiovascular Rhythm: regular Heart sounds: normal: S1, S2 - Gastrointestinal General gastrointestinal: hepatomegaly (About 3-4 fingers below costal margin.), soft - Integumentary Integumentary: normal - Neurologic Neurologic: CNII-XII intact - Musculoskeletal Musculoskeletal: generalized weakness, strength equal bilaterally - Psychiatric Psychiatric: A&O x's 3, appropriate affect Results CBC & Chem 7: 02/20/22 07:33 02/20/22 07:33 Labs: Abnormal Lab Results - Last 24 Hours (Table) 02/19/22 02/19/22 02/19/22 Range/Units 18:10 18:14 18:14 WBC 2.7 L (3.8-10.6) k/uL RBC 2.20 L (4.30-5.90) m/uL Hgb 5.7 L* (13.0-17.5) gm/dL Hct 19.7 L* (39.0-53.0) % MCHC 28.8 L (31.0-37.0) g/dL RDW 16.1 H (11.5-15.5) % Plt Count 60 L (150-450) k/uL Neutrophils # (1.3-7.7) k/uL Lymphocytes # 0.9 L (1.0-4.8) k/uL PT 12.9 H (9.0-12.0) sec INR 1.3 H (<1.2) Chloride (98-107) mmol/L Glucose (74-99) mg/dL Calcium (8.4-10.2) mg/dL Total Bilirubin (0.2-1.3) mg/dL AST (17-59) U/L Alkaline Phosphatase (38-126) U/L Total Protein (6.3-8.2) g/dL Albumin (3.5-5.0) g/dL Crossmatch See Detail 02/19/22 02/20/22 02/20/22 Range/Units 18:14 07:33 07:33 WBC 2.1 L (3.8-10.6) k/uL RBC 2.42 L (4.30-5.90) m/uL Hgb 6.5 L* (13.0-17.5) gm/dL Hct 21.3 L (39.0-53.0) % MCHC 30.6 L (31.0-37.0) g/dL RDW 15.6 H (11.5-15.5) % Plt Count 47 L (150-450) k/uL Neutrophils # 1.1 L (1.3-7.7) k/uL Lymphocytes # 0.6 L (1.0-4.8) k/uL PT (9.0-12.0) sec INR (<1.2) Chloride 108 H (98-107) mmol/L Glucose 131 H 103 H (74-99) mg/dL Calcium 8.0 L 7.5 L (8.4-10.2) mg/dL Total Bilirubin 1.8 H 3.0 H (0.2-1.3) mg/dL AST 118 H 95 H (17-59) U/L Alkaline Phosphatase 203 H 159 H (38-126) U/L Total Protein 6.0 L (6.3-8.2) g/dL Albumin 3.3 L 2.7 L (3.5-5.0) g/dL Crossmatch Comments: EKG image reviewed Chest x-ray: report reviewed US - abdomen: report reviewed (Liver ultrasound from 06/10-hepatomegaly with lobular contour) Assessment and Plan (1) Pancytopenia Narrative/Plan: The patient has previously been worked up for cytopenias, and these were determined to be due to direct effect of alcohol on the bone marrow, as well as liver cirrhosis. The current presentation is attributed to the same, but exacerbation due to GI bleed, which in turn is secondary to the same underlying problem - The patient's major drop in hemoglobin from baseline is most likely due to ongoing GI bleed. Was advised that with bleeding or any other stress he is likely to drop more and recover more slowly, because of marrow suppression from ongoing alcohol use. Any added stress in this situation will also likely drop his other blood counts such as the platelets and the WBC. - Also discussed the mechanism of decreased platelet production and increased destruction from splenic sequestration in patients with cirrhosis. Splenic sensation can also lead to leukopenia - The patient was advised that from rheumatology standpoint the treatment is supportive. Proceed with IV iron. Monitor WBC, and add G-CSF if ANC drops below 500, or below 1000 with any fevers - With normal coags, platelet count of greater than 40,000 is considered sufficient even if the patient is having active bleeding. Continue to monitor and transfuse to keep hemoglobin greater than 7, and platelets greater than 40,000. Also continue to monitor coags and supplement with vitamin K if there is any deterioration. - Check fibrinogen level. - It was discussed with the patient that stable hematologic improvement can only occur with control of his liver disease, and alcohol cessation. Current Visit: Yes Status: Acute Code(s): D61.818 - OTHER PANCYTOPENIA SNOMED Code(s): 527039304 Plan: We will defer to the admitting service and other consultants, especially GI for management of his other ongoing issues
[2022-02-20] MEDS ORDERED: LORazepam 2 MG/ML INJ IV PRN ×2 (19:00)
[2022-02-20] MEDS ORDERED: LORazepam 1 MG TAB PO PRN (19:01)
[2022-02-20] MEDS: FUROSEMIDE 10 MG/ML 4 ML VIAL IV SCH (20:32)
[2022-02-21 08:19] LABS: INR 1.5 (<1.2); Prothrombin Time 14.8 sec (9.0-12.0)
[2022-02-21] MEDS: FOLIC ACID 1 MG TAB PO SCH (08:22)
[2022-02-21] MEDS: FUROSEMIDE 10 MG/ML 4 ML VIAL IV SCH (08:22)
[2022-02-21] MEDS: ESCITALOPRAM 10 MG TAB PO SCH (08:22)
[2022-02-21] MEDS: PROPRANOLOL 10 MG TAB PO SCH ×2 (08:23→16:27)
[2022-02-21] MEDS: SPIRONOLACTONE 25 MG TAB PO SCH (08:23)
[2022-02-21] MEDS: PANTOPRAZOLE 40 MG/10 ML VIAL IVP SCH (08:23)
[2022-02-21 11:24] LABS: Magnesium 1.3 mg/dL (1.5-2.4)
[2022-02-21 11:53] VITALS: RESP 18; TEMP 99.2
[2022-02-21 12:07] LABS: African American GFR (CKD) 96.3 (60.0-200.0); Albumin 2.9 g/dL (3.8-4.9); Albumin/Globulin Ratio 0.92 (1.60-3.17); Anion Gap 9.9 mmol/L (10.00-18.00); BUN/Creat Ratio 12.64 Ratio (12.00-20.00); Bilirubin, Conjugated 2.44 mg/dL (0.20-0.40); Bilirubin,Unconjugated 1.84 mg/dL (0.20-1.00); Blood Urea Nitrogen 12.5 mg/dL (9.0-27.0); Calcium 8.3 mg/dL (8.7-10.3); Carbon Dioxide 25.7 mmol/L (20.0-27.5); Globulin 3.1 g/dL (1.6-3.3); Non-African American GFR(CKD) 83.1 (60.0-200.0); Potassium 3.4 mmol/L (3.5-5.5); Total Bilirubin 4.3 mg/dL (0.30-1.20)
[2022-02-21] MEDS ORDERED: Potassium Replacement Protocol 1 EACH MISC MISCELLANE PRN (12:22)
--- NOTE | 2022-02-21 12:32 | P.PN ---
Subjective Progress Note Date: 02/21/22 This is a pleasant 57 years old male with past medical history of GERD/Reflux, Hypertension,esophageal varices and cirrhosis of liver, anxiety and depression Patient presents because he felt exhausted with exertional dyspnea and leg stool. He states that she's been having UTI symptoms for the last 2 weeks, he went to his PCP Dr. Sha khalil who prescribed him antibiotics other than Cipro he felt partially better but he started noticing black stool but no fresh blood and no abdominal pain or vomiting or other symptoms and he noticed that black stool state after he finished his course of antibiotics but lately he was getting more exhausted more exertional dyspnea and so he got worried and decided to check himself with his PCP again and his hemoglobin was low 5.7, speech called him and asked him to come to emergency room He states he smokes cigar occasionally but he declines nicotine patch, he was counseled to quit. He still drinks 2-3 cups of wine every day, no liquor. He denies illicit tracts. Patient denies any NSAID use and he was using only Tylenol when necessary Vital signs stable, patient is afebrile. Hemoglobin on admission was low at 5.7, previously was 10.1 about 6 months ago. Also WBC is 2.7, platelet count 60 but this is chronic INR is 1.3 BMP is unremarkable, glucose 131, magnesium 1.6. Bilirubin slightly elevated 1.8, AST slightly at 118, ALT is normal at 42. Occult blood in the stool is negative. EKG showing normal sinus rhythm at [address]-T changes Chest x-ray: Borderline cardiomegaly, no other acute abnormality Patient to resume home medication and admitted with GI consult Patient got 2 units of blood transfusion last night 02/21. Patient seen and examined. Patient keen to go home. Currently tolerating clear liquid diet. Denies any blood in the stools REVIEW OF SYSTEMS: CONSTITUTIONAL: No fever, no malaise,. CARDIOVASCULAR: No chest pain, no palpitations, no syncope. PULMONARY: No shortness of breath, no cough, GASTROINTESTINAL: No diarrhea, no nausea, no vomiting, no abdominal pain. NEUROLOGICAL: No headaches, no weakness, PHYSICAL EXAMINATION: GENERAL: The patient is alert and oriented x3, not in any acute distress. Well developed, well nourished. HEENT: Pupils are round and equally reacting to light. EOMI. No scleral icterus. No conjunctival pallor. Normocephalic, atraumatic. No pharyngeal erythema. No thyromegaly. CARDIOVASCULAR: S1 and S2 present. No murmurs, rubs, or gallops. PULMONARY: Chest is clear to auscultation, no wheezing or crackles. ABDOMEN: Soft, nontender, nondistended, normoactive bowel sounds. No palpable organomegaly. MUSCULOSKELETAL: No joint swelling or deformity. EXTREMITIES: No cyanosis, clubbing, or pedal edema. NEUROLOGICAL: Gross neurological examination did not reveal any focal deficits. SKIN: No rashes. Assessment and plan Acute pancytopenia including severe anemia with hemoglobin 5.7 on admission Hypokalemia Hypomagnesemia Alcohol use disorder History of esophageal varices Hepatic cirrhosis, mostly alcohol related History of GERD gastroesophageal reflux disease Anxiety, depression, no active issue Obesity with BMI 40.4 Plan: Monitor CBC. Potassium was low, relacement ordered. Magnesium level was low, replacement ordered Monitor hemoglobin Continue IV Lasix 40 mg twice daily and Aldactone 50 mg daily and close monitoring of creatinine, electrolytes and input output Patient had EGD done which showed no active upper GI bleed. Small gastric fundal varices noted with no active bleeding. No esophageal varices seen. Continue rest of treatment Objective - Vital Signs Vital signs: Vital Signs Temp 99.2 F 02/21/22 11:38 Pulse 68 02/21/22 11:38 Resp 18 02/21/22 11:38 BP 148/72 02/21/22 11:38 Pulse Ox 96 02/21/22 11:38 FiO2 Intake & Output 02/20/22 02/21/22 02/21/22 18:59 06:59 18:59 Intake Total 310 1680 Balance 310 1680 Weight 113.398 kg Intake: Oral 1680 Blood Product 310 Rc As-1 Unit 310 [id number] Other: Voiding Method Toilet Toilet Urinal Urinal # Voids 1 4 - Labs CBC & Chem 7: 02/20/22 07:33 02/21/22 07:55 Labs: Abnormal Lab Results - Last 24 Hours (Table) 02/19/22 02/21/22 02/21/22 Range/Units 18:10 07:55 07:55 PT 14.8 H (9.0-12.0) sec INR 1.5 H (<1.2) Fibrinogen 193 L (200-500) mg/dL Potassium 3.4 L (3.5-5.5) mmol/L Anion Gap 9.90 L (10.00-18.00) mmol/L Calcium 8.3 L (8.7-10.3) mg/dL Magnesium 1.3 L (1.5-2.4) mg/dL Total Bilirubin 4.30 H (0.30-1.20) mg/dL Conjugated Bilirubin 2.44 H (0.20-0.40) mg/dL Unconjugated Bilirubin 1.84 H (0.20-1.00) mg/dL AST 76 H (14-35) U/L Total Protein 6.0 L (6.2-8.2) g/dL Albumin 2.9 L (3.8-4.9) g/dL Albumin/Globulin Ratio 0.92 L (1.60-3.17) g/dL Crossmatch See Detail
[2022-02-21] MEDS: MAGNESIUM SULFATE-D5W PMX 1 GM in DEXTROSE/WATER 1 100ML.BAG IVPB SCH ×4 (12:49→16:30)
[2022-02-21 13:36] LABS: Basophils # (A) 0.02 X 10*3/uL (0.00-0.10); Basophils % (A) 0.8 %; Eosinophils # (A) 0.09 X 10*3/uL (0.04-0.35); Eosinophils % (A) 3.8 %; HCT 22.9 % (39.6-50.0); Hypochromasia (M) 2+; Immature Grans, Automated 0.4 %; Immature Platelet Fraction 3.7 % (1.1-6.1); Lymphocytes # (A) 0.61 X 10*3/uL (0.90-5.00); Lymphocytes % (A) 25.8 %; MCHC 30.6 g/dL (32.0-37.0); MCV 88.4 fL (80.0-97.0); Mean Platelet Volume 9.6 fL (9.5-12.2); Monocytes # (A) 0.34 X 10*3/uL (0.20-1.00); Monocytes % (A) 14.4 %; NRBC Per 100 WBC 0 /100 WBCS (0.0-0.0); Neutrophils # (A) 1.29 X 10*3/uL (1.80-7.70); Neutrophils % (A) 54.8 %; Platelet Count 55 X 10*3/uL (140-440); RBC 2.59 X 10*6/uL (4.40-5.60); RDW 15.6 % (11.5-14.5); WBC 2.36 X 10*3/uL (4.50-10.00)
[2022-02-21] MEDS: POTASSIUM CHLORIDE ER 20 MEQ TAB.ER PO SCH ×2 (13:56→15:31)
--- NOTE | 2022-02-21 14:35 | P.DS ---
Providers Date of admission: 02/19/22 20:11 Expected date of discharge: 02/21/22 Attending physician: Tenisha Avalos Consults: 02/19/22 20:09 Consult Physician Routine Consulting Provider: Elvia Galindo Consult Reason/Comments: anemia Do you want consulting provider notified?: Yes, Notify in am 02/20/22 06:45 Consult Physician Urgent Consulting Provider: Yefri [place] Consult Reason/Comments: pancytopenia Do you want consulting provider notified?: Yes Primary care physician: [facility] Course: Discharge diagnoses; Acute pancytopenia including severe anemia with hemoglobin 5.7 on admission Hypokalemia Hypomagnesemia Alcohol use disorder History of esophageal varices Hepatic cirrhosis, mostly alcohol related History of GERD gastroesophageal reflux disease Anxiety, depression, no active issue Obesity with BMI 40.4 Plan: Continue home meds Patient had EGD done which showed no active upper GI bleed. Small gastric fundal varices noted with no active bleeding. No esophageal varices seen. Continue rest of treatment Repeat CBC and CMP order for outpatient Hospital course; This is a pleasant 57 years old male with past medical history of GERD/Reflux, Hypertension,esophageal varices and cirrhosis of liver, anxiety and depression Patient presents because he felt exhausted with exertional dyspnea and leg stool. He states that she's been having UTI symptoms for the last 2 weeks, he went to his PCP Dr. Sha khalil who prescribed him antibiotics other than Cipro he felt partially better but he started noticing black stool but no fresh blood and no abdominal pain or vomiting or other symptoms and he noticed that black stool state after he finished his course of antibiotics but lately he was getting more exhausted more exertional dyspnea and so he got worried and decided to check himself with his PCP again and his hemoglobin was low 5.7, speech called him and asked him to come to emergency room He states he smokes cigar occasionally but he declines nicotine patch, he was counseled to quit. He still drinks 2-3 cups of wine every day, no liquor. He denies illicit tracts. Patient denies any NSAID use and he was using only Tylenol when necessary Vital signs stable, patient is afebrile. Hemoglobin on admission was low at 5.7, previously was 10.1 about 6 months ago. Also WBC is 2.7, platelet count 60 but this is chronic INR is 1.3 BMP is unremarkable, glucose 131, magnesium 1.6. Bilirubin slightly elevated 1.8, AST slightly at 118, ALT is normal at 42. Occult blood in the stool is negative. EKG showing normal sinus rhythm at [address]-T changes Chest x-ray: Borderline cardiomegaly, no other acute abnormality Patient to resume home medication and admitted with GI consult Patient got 2 units of blood transfusion last night 02/21. Patient seen and examined. Patient keen to go home. Currently tolerating clear liquid diet. Denies any blood in the stools. Hemoglobin continues to be stable. Potassium and magnesium were low, which was replaced PHYSICAL EXAMINATION: GENERAL: The patient is alert and oriented x3, not in any acute distress. Well developed, well nourished. HEENT: Pupils are round and equally reacting to light. EOMI. No scleral icterus. No conjunctival pallor. Normocephalic, atraumatic. No pharyngeal erythema. No thyromegaly. CARDIOVASCULAR: S1 and S2 present. No murmurs, rubs, or gallops. PULMONARY: Chest is clear to auscultation, no wheezing or crackles. ABDOMEN: Soft, nontender, nondistended, normoactive bowel sounds. No palpable organomegaly. MUSCULOSKELETAL: No joint swelling or deformity. EXTREMITIES: No cyanosis, clubbing, or pedal edema. NEUROLOGICAL: Gross neurological examination did not reveal any focal deficits. SKIN: No rashes. Plan - Discharge Summary Discharge Rx Participant: No New Discharge Prescriptions: Continue Pantoprazole [Protonix] 40 mg PO DAILY Escitalopram [Lexapro] 30 mg PO DAILY Propranolol [Inderal] 10 mg PO TID Tolterodine ER [Detrol LA] 4 mg PO DAILY@1600 Folic Acid 1 mg PO DAILY Spironolactone [Aldactone] 50 mg PO DAILY PRN PRN Reason: Edema Furosemide [Lasix] 40 mg PO DAILY PRN PRN Reason: Edema Discharge Medication List Escitalopram [Lexapro] 30 mg PO DAILY 04/11/19 [History] Pantoprazole [Protonix] 40 mg PO DAILY 04/11/19 [History] Propranolol [Inderal] 10 mg PO TID 04/11/19 [History] Folic Acid 1 mg PO DAILY 02/19/22 [History] Furosemide [Lasix] 40 mg PO DAILY PRN 02/19/22 [History] Spironolactone [Aldactone] 50 mg PO DAILY PRN 02/19/22 [History] Tolterodine ER [Detrol LA] 4 mg PO DAILY@1600 02/19/22 [History] Follow up Appointment(s)/Referral(s): Parmjit Fernandez MD [Primary Care Provider] - 1-2 days Elvia Galindo MD [STAFF PHYSICIAN] - 1 Week Ambulatory/Diagnostic Orders: Complete Blood Count w/diff [LAB.AMB] Location: None Selected Comprehensive Metabolic Panel [LAB.AMB] Location: None Selected
--- NOTE | 2022-02-21 14:46 | P.DS ---
Providers Date of admission: 02/19/22 20:11 Expected date of discharge: 02/21/22 Attending physician: Tenisha Avalos Consults: 02/19/22 20:09 Consult Physician Routine Consulting Provider: Elvia Galindo Consult Reason/Comments: anemia Do you want consulting provider notified?: Yes, Notify in am 02/20/22 06:45 Consult Physician Urgent Consulting Provider: Yefri [place] Consult Reason/Comments: pancytopenia Do you want consulting provider notified?: Yes Primary care physician: Parmjit Fernandez Hospital Course: Discharge diagnoses; Bleeding from IV site, Right fifth toe osteomyelitis Nicotine dependence mild acute COPD exacerbation Acute hypoxic respiratory failure Hypertension Diabetes mellitus Hyperlipidemia Obesity with BMI of 31.6 History of osteoarthritis History of sleep apnea Hospital course; This is a pleasant 67 years old male with past medical history of diabetes mellitus, hypertension, hyperlipidemia, osteoarthritis, sleep apnea Presents because of pain and swelling of the right fifth toe of 4 day duration, he states the pain is significant and severe. He denies any other symptoms, no chest pain or dyspnea or abdominal pain or vomiting or diarrhea. No urinary complaints. No fever. He smokes 3 packs per day and he was counseled to quit and he agrees and he agrees to the nicotine patch. He denies alcohol, he denies current illicit drugs he states that he used to abuse drugs but that was many years before. Vitas looks stable He has mild leukocytosis of 11,000, rest of CBC, BMP and liver enzymes are unremarkable Right foot x-ray showing radiographic findings suggestive of acute osteomyelitis of the distal fifth toe 02/18/2022 Patient still being treated for his right fifth toe osteomyelitis, his symptoms are located to this toe, he has some difficulty with limping and during walking but he walks by himself. Vascular surgery or the evaluated the patient, he is continued with conservative management currently ID team on the case and is covered with IV vancomycin and cefepime. This morning he was mildly hypoxic but with no respiratory distress, he is heavy smoker about 3 packs per day. Pulmonary team consulted who recommended a breathing treatment and follow-up outpatient for pulmonary function test and computed tomography scan of the chest. patient was found to be hypoxic at about 86% this morning, his oxygen level improved with 2 L oxygen via nasal cannula Chest x-ray showing possible mind lower lobe lung edema and/or development infiltrates. Progress study advised Wound culture obtained as well 02/19/2022 Patient breathing is stable, he is saturating 91 on room air. He continued with bronchodilator, I talked to the patient about the importance of follow-up with pulmonary service upon discharge for pulmonary function testing CAT scan of the chest and he agrees. Distal receiving IV antibiotics for his right fifth toe osteomyelitis, he is on cefepime and IV vancomycin, wound culture is pending for now, patient informed and he agrees with the treatment plan. Leukocytosis improved 02/20/2022 patient generally was doing well, he does not have any new symptoms. No pain at the toe infection site. Hemodynamically stable, labs reviewed. Patient wound culture was found and lysed and antibiotic was suggested by ID team and to ceftriaxone 2 g daily, PICC line was planned and placed later on ragini rubio, however after the procedure patient developed bleeding from the PICC line, I talked to the bedside nurse and she checked the dressing until clear and it was soaked with blood , when she took the dressing off she told me it was oozing underneath the patient can be discharged today so we held the discharge and we checked CBC, PT and INR and to protect hematology consult to rule out bleeding diastases from IV lines. As per bed side nurse patient agrees to stay Also pulmonary team have signs off the case with recommendation for outpatient follow-up patient informed and he agrees. 02/21. Patient seen and examined. No further episodes of bleeding from the PICC line site. Denies any chest pain shortness of breath. Vital signs stable. Infectious disease cleared patient for discharge PHYSICAL EXAMINATION: GENERAL: The patient is alert and oriented x3, not in any acute distress. Well developed, well nourished. HEENT: Pupils are round and equally reacting to light. EOMI. No scleral icterus. No conjunctival pallor. Normocephalic, atraumatic. No pharyngeal erythema. No thyromegaly. CARDIOVASCULAR: S1 and S2 present. No murmurs, rubs, or gallops. PULMONARY: Chest is clear to auscultation, no wheezing or crackles. ABDOMEN: Soft, nontender, nondistended, normoactive bowel sounds. No palpable organomegaly. MUSCULOSKELETAL: No joint swelling or deformity. EXTREMITIES: Right fifth toe bandaged seen NEUROLOGICAL: Gross neurological examination did not reveal any focal deficits. SKIN: No rashes. Plan - Discharge Summary Discharge Rx Participant: No New Discharge Prescriptions: Continue Pantoprazole [Protonix] 40 mg PO DAILY Escitalopram [Lexapro] 30 mg PO DAILY Propranolol [Inderal] 10 mg PO TID Tolterodine ER [Detrol LA] 4 mg PO DAILY@1600 Folic Acid 1 mg PO DAILY Spironolactone [Aldactone] 50 mg PO DAILY PRN PRN Reason: Edema Furosemide [Lasix] 40 mg PO DAILY PRN PRN Reason: Edema Discharge Medication List Escitalopram [Lexapro] 30 mg PO DAILY 04/11/19 [History] Pantoprazole [Protonix] 40 mg PO DAILY 04/11/19 [History] Propranolol [Inderal] 10 mg PO TID 04/11/19 [History] Folic Acid 1 mg PO DAILY 02/19/22 [History] Furosemide [Lasix] 40 mg PO DAILY PRN 02/19/22 [History] Spironolactone [Aldactone] 50 mg PO DAILY PRN 02/19/22 [History] Tolterodine ER [Detrol LA] 4 mg PO DAILY@1600 02/19/22 [History] Follow up Appointment(s)/Referral(s): Parmjit Fernandez MD [Primary Care Provider] - 1-2 days Elvia Galindo MD [STAFF PHYSICIAN] - 1 Week Ambulatory/Diagnostic Orders: Complete Blood Count w/diff [LAB.AMB] Location: None Selected Comprehensive Metabolic Panel [LAB.AMB] Location: None Selected Discharge Disposition: HOME SELF-CARE
[2022-02-21 16:26] VITALS: BP 139/66; PULSE 64
[2022-02-21] MEDS: OXYBUTYNIN 10 MG TAB.ER.24 PO SCH (16:27)
== END 2022-02-21 18:01 | disposition home or self-care (01) | DRG 809 ==
LOC: EC 14:36 → 4SSUR 20:11 → 5NMEDONC 02-20 14:32
PROVIDERS: ADMIT Hospitalist; ATTEND Hospitalist
PROC: 30233N1 Transfusion of Nonautologous Red Blood Cells into Peripheral Vein, Percutaneous Approach (ICD-10-PCS; 2022-02-19)
PROC: 0DJ08ZZ Inspection of Upper Intestinal Tract, Via Natural or Artificial Opening Endoscopic (ICD-10-PCS; principal; 2022-02-20 09:00)
DX: D61.818 Other pancytopenia (principal); K76.6 Portal hypertension; Z68.41 Body mass index [BMI] 40.0-44.9, adult; N39.0 Urinary tract infection, site not specified; K70.30 Alcoholic cirrhosis of liver without ascites; E66.9 Obesity, unspecified; F10.10 Alcohol abuse, uncomplicated; I86.4 Gastric varices; K29.70 Gastritis, unspecified, without bleeding; K21.9 Gastro-esophageal reflux disease without esophagitis; E87.6 Hypokalemia; E83.42 Hypomagnesemia; E78.5 Hyperlipidemia, unspecified; F32.A Depression, unspecified; F41.9 Anxiety disorder, unspecified; I10 Essential (primary) hypertension; G47.30 Sleep apnea, unspecified; M19.90 Unspecified osteoarthritis, unspecified site; F17.210 Nicotine dependence, cigarettes, uncomplicated; F17.290 Nicotine dependence, other tobacco product, uncomplicated; Z71.6 Tobacco abuse counseling; Z79.899 Other long term (current) drug therapy; Z96.642 Presence of left artificial hip joint; Z88.0 Allergy status to penicillin
CPT/HCPCS: 36415; 36430; 43235; 71046; 80048; 80053; 80076; 82272; 83735; 83880; 84484; 85025; 85384; 85610; 85730; 86850; 86900; 86901; 86920; 93005; 96374; 99285

== ENCOUNTER 2022-05-27 08:58 | Emergency (ER) | payer BC ==
[2022-05-27 09:17] VITALS: TEMP 99
[2022-05-27] MEDS ORDERED: OCTREOTIDE 100 MCG/ML INJ IVP STA (09:22)
[2022-05-27] MEDS ORDERED: OCTREOTIDE 500 MCG in SODIUM CHLORIDE 0.9% 250 ML IV STA (09:22)
[2022-05-27] MEDS ORDERED: PANTOPRAZOLE 40 MG/10 ML VIAL IVP STA (09:22)
[2022-05-27] MEDS ORDERED: SODIUM CHLORIDE 0.9% 500 ML 500 ML IV STA (09:22)
[2022-05-27] MEDS ORDERED: ONDANSETRON 4 MG/2 ML VIAL IVP STA (09:22)
[2022-05-27 09:51] LABS: INR 1.6 (<1.2); Partial Thromboplastin Time 31.5 sec (22.0-30.0); Prothrombin Time 15.6 sec (9.0-12.0)
--- NOTE | 2022-05-27 09:52 | ED ---
General Adult HPI - General Chief complaint: GI Bleed Stated complaint: GI bleed Time Seen by Provider: 05/27/22 09:08 Source: patient, EMS, RN notes reviewed, old records reviewed Mode of arrival: EMS Limitations: altered mental status - History of Present Illness Initial comments: Patient is a 57-year-old male who presents emergency Department from his nursing facility over concern for GI bleed. He has a past medical history remarkable for prior daily alcohol abuse, prior GI bleeds with esophageal varices, who presents from [facility] complaining of dark tarry stools for 3 days per staff, slight confusion, right leg redness and swelling, as well as a few episodes of coffee-ground emesis since last night. Presents over concern for his current sy mptoms. Patient appears mildly confused. States she does not recall throwing up any dark emesis. However it is covered of the inside of his mouth as well as his lips. Endorses no abdominal pain, nausea, vomiting, diarrhea. Denies any chest pain or shortness of breath. Does remember being told that his stools were darker at the facility. States his right leg has been somewhat chronically swollen and they have been ultrasounding at which has been negative. He otherwise has no other acute complaints at this time. Patient is not on blood thinners. - Related Data Home Medications Medication Instructions Recorded Confirmed Escitalopram [Lexapro] 20 mg PO DAILY 04/11/19 05/27/22 Propranolol [Inderal] 5 mg PO TID 04/11/19 05/27/22 Folic Acid 1 mg PO DAILY 02/19/22 05/27/22 Tolterodine ER [Detrol LA] 4 mg PO DAILY 02/19/22 05/27/22 Ascorbic Acid [Vitamin C] 500 mg PO DAILY 05/27/22 05/27/22 Cholecalciferol [Vitamin D3 (25 50 mcg PO DAILY 05/27/22 05/27/22 Mcg = 1000 Iu)] Ergocalciferol [Vitamin D2 (1250 1,250 mcg PO TH 05/27/22 05/27/22 Mcg = 33276 Iu)] Ferrous Sulfate [Iron (65 MG 325 mg PO DAILY 05/27/22 05/27/22 Elemental)] Lactulose [Cephulac] 20 gm PO TID 05/27/22 05/27/22 Multivitamins, Thera [Multivitamin 1 tab PO DAILY 05/27/22 05/27/22 (formulary)] Nirmatrelvir/Ritonavir [Paxlovid 1 tab PO BID 05/27/22 05/27/22 2X150 mg-100 mg (Eua)] Omeprazole [PriLOSEC] 20 mg PO DAILY 05/27/22 05/27/22 Rifaximin [Xifaxan] 550 mg PO BID 05/27/22 05/27/22 Sodium Chloride Tab 1 gm PO TID 05/27/22 05/27/22 Zguard 1 applic TOPICAL BID 05/27/22 05/27/22 Zguard 1 applic TOPICAL DAILY PRN 05/27/22 05/27/22 Zinc Gluconate [Zinc] 50 mg PO DAILY 05/27/22 05/27/22 Allergies Allergy/AdvReac Type Severity Reaction Status Date / Time Penicillins Allergy Rash/Hives Verified 05/27/22 10:29 Review of Systems ROS Statement: Those systems with pertinent positive or pertinent negative responses have been documented in the HPI. Review of Systems: CONST: Denies fever EYES: Denies blurry vision ENT: Denies nasal congestion C/V: Denies Chest pain RESP: Denies shortness of breath GI: Denies abdominal pain : Denies dysuria SKIN: Denies rash. MSK: Endorses somewhat chronic right leg pain, swelling NEURO: Denies headache ROS Other: All systems not noted in ROS Statement are negative. Past Medical History Past Medical History: GERD/Reflux, Hypertension, Liver Disease Additional Past Medical History / Comment(s): esophageal varices and cirrhosis of liver History of Any Multi-Drug Resistant Organisms: None Reported Past Surgical History: Joint Replacement, Tonsillectomy Additional Past Surgical History / Comment(s): lt total hip Past Anesthesia/Blood Transfusion Reactions: No Reported Reaction Past Psychological History: Anxiety, Depression Smoking Status: Never smoker Past Alcohol Use History: Daily Past Drug Use History: None Reported - Past Family History Mother Family Medical History: Cancer Additional Family Medical History / Comment(s): lung cancer General Exam - General Exam Comments Initial Comments: General: Appears in no acute distress. HEAD: Normal with no signs of head trauma. EYES: EOMI. PERRLA. Pupils are 3 mm equal bilaterally. Mild conjunctiva pallor bilaterally. ENT: Hearing grossly intact. Patient has dried coffee ground emesis located around the mouth and on the roof of his mouth. RESPIRATORY: Clear breath sounds bilaterally. No wheezes, rales, or rhonchi. C/V: Regular rate and rhythm. S1 and S2 auscultated, no edema, peripheral pulses 2+ and intact throughout ABD: Abd is soft, nontender, nondistended. Rectal exam performed in the presence of nursing staff. Good rectal tone. No obvious bleeding. Light brown stool. Occult blood was sent for evaluation. EXT: Edema of the right lower extremity. Some mild erythema of the inferior aspect of the right lower extremity. Pitting edema. Slightly warm and erythematous. SKIN: Jaundice NEURO: Alert and oriented 2-3. Unknown where he is exactly at this time. No obvious focal deficits. Generalized weakness. Limitations: altered mental status Course Vital Signs 05/27/22 05/27/22 05/27/22 09:01 09:30 09:45 Temperature 99.0 F Pulse Rate 86 86 90 Respiratory 20 19 16 Rate Blood Pressure 138/101 149/75 147/76 O2 Sat by Pulse 100 97 93 L Oximetry 05/27/22 05/27/22 05/27/22 10:00 10:15 10:30 Temperature Pulse Rate 84 87 88 Respiratory 16 22 22 Rate Blood Pressure 131/81 131/70 125/88 O2 Sat by Pulse 95 95 96 Oximetry 05/27/22 05/27/22 05/27/22 11:00 11:30 11:45 Temperature Pulse Rate 89 89 89 Respiratory 16 22 16 Rate Blood Pressure 106/96 138/75 130/109 O2 Sat by Pulse 95 96 Oximetry 05/27/22 12:00 Temperature Pulse Rate 87 Respiratory 18 Rate Blood Pressure 135/73 O2 Sat by Pulse 97 Oximetry Medical Decision Making - Medical Decision Making Was pt. sent in by a medical professional or institution (, PA, TERMINAL SUPERVISOR, urgent care, hospital, or penitentiary...) When possible be specific @ -Yes, sent in by [facility] over concern for GI bleed. Did you speak to anyone other than the patient for history (EMS, parent, family, police, friend...)? What history was obtained from this source @ -No Did you review nursing and triage notes (agree or disagree)? Why? @ -I reviewed and agree with nursing and triage notes Were old charts reviewed (outside hosp., previous admission, EMS record, old EKG, old radiological studies, urgent care reports/EKG's, penitentiary records)? Report findings @ -Yes, old charts reviewed from most recent visit in April 2022. Differential Diagnosis (chest pain, altered mental status, abdominal pain women, abdominal pain men, vaginal bleeding, weakness, fever, dyspnea, syncope, headache, dizziness, GI bleed, back pain, seizure, CVA, palpatations, mental health, musculoskeletal)? @ -Differential GI Bleed: Esophageal varices, aortoenteric fistula, Stephanie-Cloud, gastritis, peptic ulcer disease, diverticulosis, inflammatory bowel disease, hemorrhoids, fissure, c olitis, malignancy, Meckels diverticulum, this is not meant to be an all- inclusive list. EKG interpreted by me (3pts min.). @ -As above X-rays interpreted by me (1pt min.). @ -Chest x-ray shows no acute cardiopulmonary process. CT interpreted by me (1pt min.). @ -CT abdomen and pelvis GI bleed protocol negative for any active bleed. Patient does have identifiable esophageal varices. Patient also has liver cirrhosis. Patient also has a gallstone but no evidence of cholecystitis. Brain CT was obtained and shows some ventricular enlargement with no comparison study. Any changes otherwise. U/S interpreted by me (1pt. min.). @ - venous duplex shows no evidence of dvt. What testing was considered but not performed or refused? (CT, X-rays, U/S, labs)? Why? @ -None What meds were considered but not given or refused? Why? @ -None Did you discuss the management of the patient with other professionals (professionals i.e. , PA, TERMINAL SUPERVISOR, lab, RT, psych nurse, social problems specialist, meat packager, teacher, gifts officer, medical case manager)? Give summary @ -Dr. Rubio of the ER at [facility] who accepted the transfer. Was smoking cessation discussed for >3mins.? @ -No Was critical care preformed (if so, how long)? @ -No Were there social determinants of health that impacted care today? How? (Homelessness, low income, unemployed, alcoholism, drug addiction, transportation, low edu. Level, literacy, decrease access to med. care, skilled nursing, rehab)? @ -No Was there de-escalation of care discussed even if they declined (Discuss DNR or withdrawal of care, Hospice)? DNR status @ -No What co-morbidities impacted this encounter? (DM, HTN, Smoking, COPD, CAD, Cancer, CVA, ARF, Chemo, Hep., AIDS, mental health diagnosis, sleep apnea, morbid obesity)? @ -History of alcohol abuse, history of esophageal varices Was patient admitted / discharged? Hospital course, mention meds given and route, prescriptions, significant lab abnormalities, going to OR and other pertinent info. @ -Based on the patient's presentation and physical exam, he presents over concern for GI bleed. Has been having dark tarry stools per nursing staff as well as a few episodes of coffee-ground emesis. Has dried coffee ground emesis around his mouth currently. States he has generalized weakness as well. Is A and O 2 which is below his baseline. Presents for further evaluation at this time. We'll obtain problem laboratory studies, infectious labs. Patient is known to be Covid positive at this time but we will repeat swabs. CT of abdomen and pelvis as well as head will be obtained as well as chest x-ray, right lower extremity duplex. For the concern for variceal GI bleed with a history of it patient will be even a bolus of octreotide 50 g as well as started on a drip 50 g an hour. Is also given IV Zofran and Protonix and a 500 mL fluid bolus. He was in agreement with this plan. EKG showed no signs of acute ischemia.Patient's laboratory studies were remarkable for a hemoglobin of 8.4 which is decreased from 9.4 approximately one month ago. Patient also has thrombocytopenia which is chronic and 94. Coags are slightly elevated likely secondary to his liver disease. Magnesium is low at 1.2 and therefore will be replenished. Total bilirubin is elevated to 3.9 which is somewhat chronic for the patient. Patient's ammonia is within acceptable limits. Rectal stool Occult blood is positive. Patient is also hyp onatremic to 123 hypokalemic to 94. Imaging is remarkable for no active GI bleed, some enlarged intracranial ventricles of unknown chronicity, as well as findings concerning for chronic liver disease, as well as esophageal varices. Venous duplex ultrasound negative for DVT in the right lower extremity. I discussed the findings with the patient. As the patient has a known history of esophageal varices with coffee-ground emesis, I did want to transfer him to a facility with GI available. We do not have GI services here. He was in agreement with this plan. We will reach out to [facility]. This was started at approximately 11:15 AM. I did speak with Dr. Rubio in the ER at [facility] who accepted the transfer. Patient be transferred in serious condition. He was in agreement this plan. Patient remains hemodynamically stable and therefore as his hemoglobin was 8.4, I will hold off on giving blood at this time. Receiving facility was in agreement with this plan. he will be transferred in serious condition. Patient was in agreement with this plan. Undiagnosed new problem with uncertain prognosis? @ -No Drug Therapy requiring intensive monitoring for toxicity (Heparin, Nitro, Insulin, Cardizem)? @ -No Were any procedures done? @ -No Diagnosis/symptom? @ -Upper GI bleed with coffee-ground emesis, known history of esophageal varices Acute, or Chronic, or Acute on Chronic? @ -Acute Uncomplicated (without systemic symptoms) or Complicated (systemic symptoms)? @ -Complicated Side effects of treatment? @ -none Exacerbation, Progression, or Severe Exacerbation] @ -no Poses a threat to life or bodily function? @ -Yes, can result in significant morbidity and mortality if it is not treated. Diagnosis/symptom? @ -Acute on chronic anemia Acute, or Chronic, or Acute on Chronic? @ -Acute on chronic Uncomplicated (without systemic symptoms) or Complicated (systemic symptoms)? @ -Complicated Side effects of treatment? @ -none Exacerbation, Progression, or Severe Exacerbation] @ -no Poses a threat to life or bodily function? @ -Yes, if underlying causes not treated can result in significant morbidity and mortality. Diagnosis/symptom? @ -History of liver cirrhosis, alcohol liver disease Acute, or Chronic, or Acute on Chronic? @ -chronic Uncomplicated (without systemic symptoms) or Complicated (systemic symptoms)? @ -complicated Side effects of treatment? @ -none Exacerbation, Progression, or Severe Exacerbation] @ -no Poses a threat to life or bodily function? @ -Yes, can result in significant morbidity and mortality. Diagnosis/symptom? @ -Hyponatremia Acute, or Chronic, or Acute on Chronic? @ -Acute Uncomplicated (without systemic symptoms) or Complicated (systemic symptoms)? @ -Uncomplicated Side effects of treatment? @ -none Exacerbation, Progression, or Severe Exacerbation] @ -no Poses a threat to life or bodily function? @ -no Diagnosis/symptom? @ -Hypomagnesemia Acute, or Chronic, or Acute on Chronic? @ -Acute Uncomplicated (without systemic symptoms) or Complicated (systemic symptoms)? @ -Uncomplicated Side effects of treatment? @ -none Exacerbation, Progression, or Severe Exacerbation] @ -no Poses a threat to life or bodily function? @ -no Diagnosis/symptom? @ -Thrombocytopenia Acute, or Chronic, or Acute on Chronic? @ -Acute on chronic Uncomplicated (without systemic symptoms) or Complicated (systemic symptoms)? @ -Uncomplicated Side effects of treatment? @ -none Exacerbation, Progression, or Severe Exacerbation] @ -no Poses a threat to life or bodily function? @ -Yes, if continues to worsen can result in significant morbidity mortality from bleeding. - Lab Data Result diagrams: 05/27/22 09:28 05/27/22 09:28 Lab Results 05/27/22 05/27/22 05/27/22 Range/Units 09:28 09:28 09:28 WBC 5.4 (3.8-10.6) k/uL RBC 2.82 L (4.30-5.90) m/uL Hgb 8.4 L (13.0-17.5) gm/dL Hct 25.2 L (39.0-53.0) % MCV 89.5 (80.0-100.0) fL MCH 29.9 (25.0-35.0) pg MCHC 33.5 (31.0-37.0) g/dL RDW 18.7 H (11.5-15.5) % Plt Count 94 L (150-450) k/uL MPV 7.3 Neutrophils % 75 % Lymphocytes % 13 % Monocytes % 7 % Eosinophils % 2 % Basophils % 0 % Neutrophils # 4.0 (1.3-7.7) k/uL Lymphocytes # 0.7 L (1.0-4.8) k/uL Monocytes # 0.4 (0-1.0) k/uL Eosinophils # 0.1 (0-0.7) k/uL Basophils # 0.0 (0-0.2) k/uL Manual Slide Review Performed Anisocytosis Slight PT 15.6 H (9.0-12.0) sec INR 1.6 H (<1.2) APTT 31.5 H (22.0-30.0) sec Sodium (137-145) mmol/L Potassium (3.5-5.1) mmol/L Chloride (98-107) mmol/L Carbon Dioxide (22-30) mmol/L Anion Gap mmol/L BUN (9-20) mg/dL Creatinine (0.66-1.25) mg/dL Est GFR (CKD-EPI)AfAm (>60 ml/min/1.73 sqM) Est GFR (CKD-EPI)NonAf (>60 ml/min/1.73 sqM) Glucose (74-99) mg/dL Plasma Lactic Acid Jose Roberto (0.7-2.0) mmol/L Calcium (8.4-10.2) mg/dL Magnesium (1.6-2.3) mg/dL Total Bilirubin (0.2-1.3) mg/dL AST (17-59) U/L ALT (4-49) U/L Alkaline Phosphatase (38-126) U/L Ammonia (<30) umol/L Total Protein (6.3-8.2) g/dL Albumin (3.5-5.0) g/dL Lipase (23-300) U/L Stool Occult Blood Positive (Negative) Influenza Type A (PCR) (Not Detectd) Influenza Type B (PCR) (Not Detectd) RSV (PCR) (Not Detectd) SARS-CoV-2 (PCR) (Not Detectd) Blood Type Blood Type Recheck Bld Type Recheck Status Antibody Screen Antibody Identification Direct Antiglob Test Spec Expiration Date 05/27/22 05/27/22 05/27/22 Range/Units 09:28 09:28 09:28 WBC (3.8-10.6) k/uL RBC (4.30-5.90) m/uL Hgb (13.0-17.5) gm/dL Hct (39.0-53.0) % MCV (80.0-100.0) fL MCH (25.0-35.0) pg MCHC (31.0-37.0) g/dL RDW (11.5-15.5) % Plt Count (150-450) k/uL MPV Neutrophils % % Lymphocytes % % Monocytes % % Eosinophils % % Basophils % % Neutrophils # (1.3-7.7) k/uL Lymphocytes # (1.0-4.8) k/uL Monocytes # (0-1.0) k/uL Eosinophils # (0-0.7) k/uL Basophils # (0-0.2) k/uL Manual Slide Review Anisocytosis PT (9.0-12.0) sec INR (<1.2) APTT (22.0-30.0) sec Sodium 123 L (137-145) mmol/L Potassium 4.5 (3.5-5.1) mmol/L Chloride 94 L (98-107) mmol/L Carbon Dioxide 24 (22-30) mmol/L Anion Gap 5 mmol/L BUN 11 (9-20) mg/dL Creatinine 0.42 L (0.66-1.25) mg/dL Est GFR (CKD-EPI)AfAm >90 (>60 ml/min/1.73 sqM) Est GFR (CKD-EPI)NonAf >90 (>60 ml/min/1.73 sqM) Glucose 94 (74-99) mg/dL Plasma Lactic Acid Jose Roberto 1.0 (0.7-2.0) mmol/L Calcium 7.5 L (8.4-10.2) mg/dL Magnesium 1.2 L (1.6-2.3) mg/dL Total Bilirubin 3.9 H (0.2-1.3) mg/dL AST 91 H (17-59) U/L ALT 48 (4-49) U/L Alkaline Phosphatase 191 H (38-126) U/L Ammonia 28 (<30) umol/L Total Protein 6.6 (6.3-8.2) g/dL Albumin 2.1 L (3.5-5.0) g/dL Lipase 187 (23-300) U/L Stool Occult Blood (Negative) Influenza Type A (PCR) (Not Detectd) Influenza Type B (PCR) (Not Detectd) RSV (PCR) (Not Detectd) SARS-CoV-2 (PCR) (Not Detectd) Blood Type B Positive Blood Type Recheck B Pos Bld Type Recheck Status No Antibody Screen POSITIVE Antibody Identification See Comments Direct Antiglob Test Positive Spec Expiration Date 05/30/2022 - 232705/27/22 Range/Units 09:49 WBC (3.8-10.6) k/uL RBC (4.30-5.90) m/uL Hgb (13.0-17.5) gm/dL Hct (39.0-53.0) % MCV (80.0-100.0) fL MCH (25.0-35.0) pg MCHC (31.0-37.0) g/dL RDW (11.5-15.5) % Plt Count (150-450) k/uL MPV Neutrophils % % Lymphocytes % % Monocytes % % Eosinophils % % Basophils % % Neutrophils # (1.3-7.7) k/uL Lymphocytes # (1.0-4.8) k/uL Monocytes # (0-1.0) k/uL Eosinophils # (0-0.7) k/uL Basophils # (0-0.2) k/uL Manual Slide Review Anisocytosis PT (9.0-12.0) sec INR (<1.2) APTT (22.0-30.0) sec Sodium (137-145) mmol/L Potassium (3.5-5.1) mmol/L Chloride (98-107) mmol/L Carbon Dioxide (22-30) mmol/L Anion Gap mmol/L BUN (9-20) mg/dL Creatinine (0.66-1.25) mg/dL Est GFR (CKD-EPI)AfAm (>60 ml/min/1.73 sqM) Est GFR (CKD-EPI)NonAf (>60 ml/min/1.73 sqM) Glucose (74-99) mg/dL Plasma Lactic Acid Jose Roberto (0.7-2.0) mmol/L Calcium (8.4-10.2) mg/dL Magnesium (1.6-2.3) mg/dL Total Bilirubin (0.2-1.3) mg/dL AST (17-59) U/L ALT (4-49) U/L Alkaline Phosphatase (38-126) U/L Ammonia (<30) umol/L Total Protein (6.3-8.2) g/dL Albumin (3.5-5.0) g/dL Lipase (23-300) U/L Stool Occult Blood (Negative) Influenza Type A (PCR) Not Detected (Not Detectd) Influenza Type B (PCR) Not Detected (Not Detectd) RSV (PCR) Not Detected (Not Detectd) SARS-CoV-2 (PCR) Detected A (Not Detectd) Blood Type Blood Type Recheck Bld Type Recheck Status Antibody Screen Antibody Identification Direct Antiglob Test Spec Expiration Date - EKG Data -: EKG Interpreted by Me EKG Comments: 12-lead Electrocardiogram Interpretation Note EKG was reviewed and interpreted by myself. 12-lead ECG performed at 0909 is interpreted by me as revealing normal sinus rhythm at a rate of 85 beats per minute. [place] is normal. [place] interval is 165 ms, QRS duration is 109 ms, QTc is 446. Glucose.. There were no ST or T wave abnormalities to suggest myocardial ischemia or injury. R wave progression across the precordium was satisfactory. By my interpretation this EKG is non-diagnostic for acute ischemia. When compared with EKG from 05/04/2022, no significant change. Critical Care Time Critical Care Time: Yes Total Critical Care Time: 35 Critical Care Time: Upon my evaluation, this patient had a high probability of imminent or life- threatening deterioration due to GI bleed, blood loss anemia, chronic liver disease, history of esophageal varices, which required my direct attention, intervention, and personal management. I have personally provided 35 minutes of critical care time exclusive of time spent on separately billable procedures. Time includes review of laboratory data, radiology results, discussion with consultants, and monitoring for potential decompensation. Interventions were performed as documented in my note. Disposition Clinical Impression: Upper GI bleed, Coffee ground emesis, History of cirrhosis of liver, Hypo magnesemia, Hyponatremia, Thrombocytopenia Disposition: OTHER INSTITUTION NOT DEFINED Condition: Serious Referrals: Parmjit Fernandez MD [Primary Care Provider] - 1-2 days Time of Disposition: 11:15 - Out of Hospital Transfer - Req. Specs Out of Hospital Transfer - Requested Specifics: Other Emergency Center (Transferred for GI evaluation/escalation of care due to concern for variceal bleeding.)
[2022-05-27 09:59] LABS: ALT 48 U/L (4-49); AST 91 U/L (17-59); African American GFR (CKD) >90 (>60 ml/min/1.73 sqM); Albumin 2.1 g/dL (3.5-5.0); Alkaline Phosphatase 191 U/L (38-126); Anion Gap 5 mmol/L; Blood Urea Nitrogen 11 mg/dL (9-20); Calcium 7.5 mg/dL (8.4-10.2); Carbon Dioxide 24 mmol/L (22-30); Chloride 94 mmol/L (98-107); Glucose 94 mg/dL (74-99); Lipase 187 U/L (23-300); Magnesium 1.2 mg/dL (1.6-2.3); Non-African American GFR(CKD) >90 (>60 ml/min/1.73 sqM); Potassium 4.5 mmol/L (3.5-5.1); Sodium 123 mmol/L (137-145); Total Bilirubin 3.9 mg/dL (0.2-1.3); Total Protein 6.6 g/dL (6.3-8.2)
[2022-05-27 10:03] LABS: Anisocytosis Slight; Basophils % (A) 0 %; Eosinophils # (A) 0.1 k/uL (0-0.7); Eosinophils % (A) 2 %; HCT 25.2 % (39.0-53.0); HGB 8.4 gm/dL (13.0-17.5); Lymphocytes # (A) 0.7 k/uL (1.0-4.8); Lymphocytes % (A) 13 %; MCH 29.9 pg (25.0-35.0); MCHC 33.5 g/dL (31.0-37.0); MCV 89.5 fL (80.0-100.0); Mean Platelet Volume 7.3; Monocytes # (A) 0.4 k/uL (0-1.0); Monocytes % (A) 7 %; Neutrophils % (A) 75 %; RBC 2.82 m/uL (4.30-5.90); RDW 18.7 % (11.5-15.5); WBC 5.4 k/uL (3.8-10.6)
--- NOTE | 2022-05-27 10:33 | XR ---
EXAMINATION TYPE: XR chest 2V DATE OF EXAM: 05/27/2022 COMPARISON: 05/04/2022 TECHNIQUE: PA and lateral views submitted. HISTORY: Pain FINDINGS: The lungs are clear and there is no pneumothorax, pleural effusion, or focal pneumonia. Heart size mildly prominent and no overt failure. Osseous structures demonstrate hypertrophic and degenerative c hanges of the spine. Question of posterior mid right rib deformity which appears stable suggestive of previous trauma. IMPRESSION: 1. No acute process.
[2022-05-27 10:43] LABS: Platelet Count 94 k/uL (150-450)
[2022-05-27] MEDS ORDERED: MAGNESIUM SULFATE-D5W PMX 1 GM in DEXTROSE/WATER 1 100ML.BAG IVPB SCH (11:00)
--- NOTE | 2022-05-27 11:10 | CT ---
EXAMINATION: CTA ABDOMEN AND PELVIS WITHOUT AND WITH IV CONTRAST DATE OF EXAMINATION: 05/27/2022. COMPARISON: None available. INDICATION: GI bleeding. PROCEDURE: Axial CT of the abdomen and pelvis was performed without and with contrast and sagittal a nd coronal reformatted images were performed. Maximum intensity projection reformats were also perfor med. 100 mL of [id number]-[id number] dose lowering techniques were used, to include: automated exposure control, adjustment for patient size, and/or use of iterative reconstruction. FINDINGS: LOWER CHEST : There is a small right pleural effusion. ABDOMEN: Liver and Biliary system: There is a marked nodular contour to the liver which is compatible with ci rrhosis. A definitive focal liver lesion is not clearly identified. There is a small amount of ascite s around the liver. Adrenal glands: Normal. Kidneys and ureters: There is a subcentimeter hypodensity in the right kidney that is too small to fu lly characterize. The kidneys otherwise appear unremarkable Spleen: Normal. Pancreas: Normal. Gallbladder: There are multiple calcified gallstones within the gallbladder. Lymph nodes, Peritoneum and mesentery: There is no mesenteric or retroperitoneal lymphadenopathy. Th ere are large caliber gastrohepatic ligament varices. There are also likely small caliber paraesophag eal varices. Gastrointestinal tract: There are no dilated loops of bowel or free intraperitoneal air. The appe ndix is normal. Aorta/IVC: No aortic aneurysm. IVC normal. Abdominal wall: Mild to moderate body wall edema. PELVIS: Fluid: There is a small amount of pelvic ascites. Lymph Nodes: There is no pelvic or inguinal lymphadenopathy.. Urinary bladder: Normal. BONES: There is a left total hip arthroplasty. There is mild compression deformities along the super ior endplate of L2 and L3 which are likely chronic. There is no acute osseous abnormality. Mild degen erative changes are otherwise seen within the facets of the lower lumbosacral spine. ADDITIONAL SIGNIFICANT FINDINGS: None. IMPRESSION: 1. Somewhat limited evaluation due to poor contrast opacification for bleeding. No definitive clear G I bleeding is identified on the scope of this examination, recurrent limitations as above. 2. Cirrhosis with signs of portal venous hypertension including a small amount of ascites and varices described above. 3. No bowel obstruction or appendicitis. 4. Cholelithiasis.
--- NOTE | 2022-05-27 11:11 | CT ---
EXAMINATION TYPE: CT brain wo con DATE OF EXAM: 05/27/2022 COMPARISON: None HISTORY: AMS CT DLP: 1241.4 mGycm Automated exposure control for dose reduction was used. FINDINGS: There is a moderate to severe central dilation of ventricular system. There is a periventricular low attenuation which is nonspecific. No midline shift or mass effect. No acute hemorrhage. Calvarium intact. Cranial cervical junction maintained. Sella turcica has a normal appearance. A prom inent cisterna magna noted. IMPRESSION: DEGENERATIVE CHANGE. THERE IS A GREATER CENTRAL COMPONENT OF THE MODERATE TO SEVERE VENTRICULAR DILAT ION THEREFORE, A COMPONENT OF OF THE NORMAL PRESSURE HYDROCEPHALUS OR HYDROCEPHALUS IN THE DIFFERENT IAL DIAGNOSIS. NO PRIOR EXAMS AVAILABLE FOR COMPARISON. LOW ATTENUATION IN THE WHITE MATTER COULD BE ON THE BASIS OF THE REMOTE WHITE MATTER MICROVASCULAR IS CHEMIA OR TRANSEPENDYMAL EDEMA
--- NOTE | 2022-05-27 11:18 | US ---
EXAMINATION TYPE: US venous doppler duplex LE RT DATE OF EXAM: 05/27/2022 11:11 AM COMPARISON: NONE CLINICAL HISTORY: eval for dvt. covid edema SIDE PERFORMED: Right TECHNIQUE: The lower extremity deep venous system is examined utilizing real time linear array sonog natalia with graded compression, doppler sonography and color-flow sonography. VESSELS IMAGED: Common Femoral Vein Deep Femoral Vein Greater Saphenous Vein * Femoral Vein Popliteal Vein Small Saphenous Vein * Proximal Calf Veins (* superficial vessels) Right Leg: Negative for DVT IMPRESSION: Grayscale, color doppler, spectral doppler imaging performed of the deep veins of the lo wer extremities. There is normal flow, compressibility, vascular waveforms.
[2022-05-27 12:08] VITALS: BP 135/73; PULSE 87; RESP 18
== END 2022-05-27 12:22 | disposition other institution (70) ==
LOC: EC 08:58
DX: K92.2 Gastrointestinal hemorrhage, unspecified (principal); K92.0 Hematemesis; E83.42 Hypomagnesemia; E87.1 Hypo-osmolality and hyponatremia; D69.6 Thrombocytopenia, unspecified; K80.20 Calculus of gallbladder without cholecystitis without obstruction; K21.9 Gastro-esophageal reflux disease without esophagitis; I10 Essential (primary) hypertension; F41.9 Anxiety disorder, unspecified; F32.A Depression, unspecified; Z79.899 Other long term (current) drug therapy; Z88.0 Allergy status to penicillin; Z20.822 Contact with and (suspected) exposure to COVID-19; Z87.738 Personal history of other specified (corrected) congenital malformations of digestive system
CPT/HCPCS: 36415; 93005; 86900; 86901; 80053; 82140; 83605; 83690; 83735; 85025; 85610; 85730; 86850; 86870; 86880; 82272; 87636; 71046; 93971; 70450; 74174; 99291; 96365; 96367; 96368; 96375 ×2; 96361; J2405; J2354 ×2; J3475; C9113; Q9967

== ENCOUNTER 2022-12-26 10:11 | Inpatient (IN) | payer BC ==
--- NOTE | 2022-12-26 11:02 | ED ---
General Adult HPI - General Chief complaint: Recheck/Abnormal Lab/Rx Stated complaint: Abnormal Labs Time Seen by Provider: 12/26/22 10:35 Source: patient, RN notes reviewed, old records reviewed Mode of arrival: ambulatory Limitations: no limitations - History of Present Illness Initial comments: This is a 57-year-old male who presents emergency Department with a past medical history significant for anemia. Patient's pain getting intermittent transf usions for the last year. Patient states he had blood redrawn yesterday told him he was 5.9/sentiment emergency department. Patient states he is asymptomatic which is typical for him. Patient states he is not lightheaded he denies any headache denies any shortness of breath palpitations or difficulty breathing. Patient denies any black or bloody stools. Patient states he hadn't EGD and a colonoscopy and both were negative. Patient states he's never seen a iv rn however. Patient denies any abdominal pain patient denies any nausea vomiting diarrhea. - Related Data Home Medications Medication Instructions Recorded Confirmed Escitalopram [Lexapro] 20 mg PO DAILY 04/11/19 05/27/22 Propranolol [Inderal] 5 mg PO TID 04/11/19 05/27/22 Folic Acid 1 mg PO DAILY 02/19/22 05/27/22 Tolterodine ER [Detrol LA] 4 mg PO DAILY 02/19/22 05/27/22 Ascorbic Acid [Vitamin C] 500 mg PO DAILY 05/27/22 05/27/22 Cholecalciferol [Vitamin D3 (25 50 mcg PO DAILY 05/27/22 05/27/22 Mcg = 1000 Iu)] Ergocalciferol [Vitamin D2 (1250 1,250 mcg PO TH 05/27/22 05/27/22 Mcg = 65087 Iu)] Ferrous Sulfate [Iron (65 MG 325 mg PO DAILY 05/27/22 05/27/22 Elemental)] Lactulose [Cephulac] 20 gm PO TID 05/27/22 05/27/22 Multivitamins, Thera [Multivitamin 1 tab PO DAILY 05/27/22 05/27/22 (formulary)] Nirmatrelvir/Ritonavir [Paxlovid 1 tab PO BID 05/27/22 05/27/22 2X150 mg-100 mg (Eua)] Omeprazole [PriLOSEC] 20 mg PO DAILY 05/27/22 05/27/22 Rifaximin [Xifaxan] 550 mg PO BID 05/27/22 05/27/22 Sodium Chloride Tab 1 gm PO TID 05/27/22 05/27/22 Zguard 1 applic TOPICAL BID 05/27/22 05/27/22 Zguard 1 applic TOPICAL DAILY PRN 05/27/22 05/27/22 Zinc Gluconate [Zinc] 50 mg PO DAILY 05/27/22 05/27/22 Allergies Allergy/AdvReac Type Severity Reaction Status Date / Time Penicillins Allergy Rash/Hives Verified 12/26/22 10:26 Review of Systems ROS Statement: Those systems with pertinent positive or pertinent negative responses have been documented in the HPI. ROS Other: All systems not noted in ROS Statement are negative. Past Medical History Past Medical History: GERD/Reflux, Hypertension, Liver Disease Additional Past Medical History / Comment(s): esophageal varices and cirrhosis of liver History of Any Multi-Drug Resistant Organisms: None Reported Past Surgical History: Joint Replacement, Tonsillectomy Additional Past Surgical History / Comment(s): lt total hip Past Anesthesia/Blood Transfusion Reactions: No Reported Reaction Past Psychological History: Anxiety, Depression Smoking Status: Never smoker Past Alcohol Use History: Daily Past Drug Use History: None Reported - Past Family History Mother Family Medical History: Cancer Additional Family Medical History / Comment(s): lung cancer General Exam - General Exam Comments Initial Comments: GENERAL: Patient is well-developed and well-nourished. Patient is nontoxic and well- hydrated and is in no acute distress. ENT: Neck is soft and supple. No significant lymphadenopathy is noted. Oropharynx is clear. Moist mucous membranes. Neck has full range of motion without eliciting any pain. EYES: The sclera were anicteric and conjunctiva were pink and moist. Extraocular movements were intact and pupils were equal round and reactive to light. Eyelids were unremarkable. PULMONARY: Unlabored respirations. Good breath sounds bilaterally. No audible rales rhonchi or wheezing was noted. CARDIOVASCULAR: There is a regular rate and rhythm without any murmurs gallops or rubs. ABDOMEN: Soft and nontender with normal bowel sounds. SKIN: Pale. NEUROLOGIC: Patient is alert and oriented x3. Cranial nerves II through XII are grossly intact. Motor and sensory are also intact. Normal speech, volume and content. Symmetrical smile. MUSCULOSKELETAL: Normal extremities with adequate strength and full range of motion. No lower extremity swelling or edema. No calf tenderness. LYMPHATICS: No significant lymphadenopathy is noted PSYCHIATRIC: Normal psychiatric evaluation. Limitations: no limitations Course Vital Signs 12/26/22 12/26/22 10:24 12:22 Temperature 98.7 F 98.7 F Pulse Rate 79 67 Respiratory 20 18 Rate Blood Pressure 129/49 125/73 O2 Sat by Pulse 99 98 Oximetry Medical Decision Making - Medical Decision Making Was pt. sent in by a medical professional or institution (, PAYTON, TELESALES SUPERVISOR, urgent care, hospital, or usp...) When possible be specific @ -No Did you speak to anyone other than the patient for history (EMS, parent, family, police, friend...)? What history was obtained from this source @ -No Did you review nursing and triage notes (agree or disagree)? Why? @ -I reviewed and agree with nursing and triage notes Were old charts reviewed (outside hosp., previous admission, EMS record, old EKG, old radiological studies, urgent care reports/EKG's, usp records)? Report findings @ -I reviewed old charts and old lab work on this patient Differential Diagnosis (chest pain, altered mental status, abdominal pain women, abdominal pain men, vaginal bleeding, weakness, fever, dyspnea, syncope, headache, dizziness, GI bleed, back pain, seizure, CVA, palpatations, mental health, musculoskeletal)? @ -Patient came in with the diagnosis of anemia EKG interpreted by me (3pts min.). @ -As above X-rays interpreted by me (1pt min.). @ -None done CT interpreted by me (1pt min.). @ -None done U/S interpreted by me (1pt. min.). @ -None done What testing was considered but not performed or refused? (CT, X-rays, U/S, labs)? Why? @ -None What meds were considered but not given or refused? Why? @ -None Did you discuss the management of the patient with other professionals (professionals i.e. , PAYTON, TELESALES SUPERVISOR, lab, RT, psych nurse, dialysis social worker, dish person, teacher, pharmaceutical officer, patient case manager)? Give summary @ -I spoke with Dr. Salguero she agreed to admit the patient admitted the patie nt wrote admitting orders Was smoking cessation discussed for >3mins.? @ -No Was critical care preformed (if so, how long)? @ -35 minutes Were there social determinants of health that impacted care today? How? (Homelessness, low income, unemployed, alcoholism, drug addiction, transportation, low edu. Level, literacy, decrease access to med. care, senior living, rehab)? @ -No Was there de-escalation of care discussed even if they declined (Discuss DNR or withdrawal of care, Hospice)? DNR status @ -No What co-morbidities impacted this encounter? (DM, HTN, Smoking, COPD, CAD, Cancer, CVA, ARF, Chemo, Hep., AIDS, mental health diagnosis, sleep apnea, morbid obesity)? @ -None Was patient admitted / discharged? Hospital course, mention meds given and route, prescriptions, significant lab abnormalities, going to OR and other pertinent info. @ -Patient had a hemoglobin of 5.8 ordered 2 units of packed red blood cells I spoke with Dr. Salguero when I consulted hematology Undiagnosed new problem with uncertain prognosis? @ -No Drug Therapy requiring intensive monitoring for toxicity (Heparin, Nitro, Insulin, Cardizem)? @ -No Were any procedures done? @ -No Diagnosis/symptom? @ -Anemia Acute, or Chronic, or Acute on Chronic? @ -Acute Uncomplicated (without systemic symptoms) or Complicated (systemic symptoms)? @ -Complicated Side effects of treatment? @ -No Exacerbation, Progression, or Severe Exacerbation? @ -No Poses a threat to life or bodily function? How? (Chest pain, USA, NC, pneumonia, PE, COPD, DKA, ARF, appy, cholecystitis, CVA, Diverticulitis, Homicidal, Suicidal, threat to staff... and all critical care pts) @ -Yes this could lead to poor perfusion and end organ dysfunction - Lab Data Result diagrams: 12/26/22 11:13 12/26/22 11:13 Lab Results 12/26/22 12/26/22 12/26/22 Range/Units 11:13 11:13 11:13 WBC 4.2 (3.8-10.6) k/uL RBC 1.85 L (4.30-5.90) m/uL Hgb 5.9 L* (13.0-17.5) gm/dL Hct 19.0 L* (39.0-53.0) % MCV 102.7 H (80.0-100.0) fL MCH 31.9 (25.0-35.0) pg MCHC 31.1 (31.0-37.0) g/dL RDW 17.9 H (11.5-15.5) % Plt Count 121 L (150-450) k/uL MPV 7.8 Neutrophils % 64 % Lymphocytes % 21 % Monocytes % 9 % Eosinophils % 3 % Basophils % 0 % Neutrophils # 2.7 (1.3-7.7) k/uL Lymphocytes # 0.9 L (1.0-4.8) k/uL Monocytes # 0.4 (0-1.0) k/uL Eosinophils # 0.1 (0-0.7) k/uL Basophils # 0.0 (0-0.2) k/uL Hypochromasia Marked Anisocytosis Slight Macrocytosis Moderate PT 12.8 H (9.0-12.0) sec INR 1.3 H (<1.2) APTT 25.1 (22.0-30.0) sec Sodium 137 (137-145) mmol/L Potassium 4.6 (3.5-5.1) mmol/L Chloride 107 (98-107) mmol/L Carbon Dioxide 23 (22-30) mmol/L Anion Gap 7 mmol/L BUN 19 (9-20) mg/dL Creatinine 0.69 (0.66-1.25) mg/dL Est GFR (CKD-EPI)AfAm >90 (>60 ml/min/1.73 sqM) Est GFR (CKD-EPI)NonAf >90 (>60 ml/min/1.73 sqM) Glucose 117 H (74-99) mg/dL Calcium 8.4 (8.4-10.2) mg/dL Magnesium 1.2 L (1.6-2.3) mg/dL Total Bilirubin 1.6 H (0.2-1.3) mg/dL AST 42 (17-59) U/L ALT 21 (4-49) U/L Alkaline Phosphatase 126 (38-126) U/L Troponin I (0.000-0.034) ng/mL Total Protein 7.3 (6.3-8.2) g/dL Albumin 2.8 L (3.5-5.0) g/dL Blood Type Blood Type Recheck Bld Type Recheck Status Antibody Screen Crossmatch Spec Expiration Date 12/26/22 12/26/22 Range/Units 11:13 11:13 WBC (3.8-10.6) k/uL RBC (4.30-5.90) m/uL Hgb (13.0-17.5) gm/dL Hct (39.0-53.0) % MCV (80.0-100.0) fL MCH (25.0-35.0) pg MCHC (31.0-37.0) g/dL RDW (11.5-15.5) % Plt Count (150-450) k/uL MPV Neutrophils % % Lymphocytes % % Monocytes % % Eosinophils % % Basophils % % Neutrophils # (1.3-7.7) k/uL Lymphocytes # (1.0-4.8) k/uL Monocytes # (0-1.0) k/uL Eosinophils # (0-0.7) k/uL Basophils # (0-0.2) k/uL Hypochromasia Anisocytosis Macrocytosis PT (9.0-12.0) sec INR (<1.2) APTT (22.0-30.0) sec Sodium (137-145) mmol/L Potassium (3.5-5.1) mmol/L Chloride (98-107) mmol/L Carbon Dioxide (22-30) mmol/L Anion Gap mmol/L BUN (9-20) mg/dL Creatinine (0.66-1.25) mg/dL Est GFR (CKD-EPI)AfAm (>60 ml/min/1.73 sqM) Est GFR (CKD-EPI)NonAf (>60 ml/min/1.73 sqM) Glucose (74-99) mg/dL Calcium (8.4-10.2) mg/dL Magnesium (1.6-2.3) mg/dL Total Bilirubin (0.2-1.3) mg/dL AST (17-59) U/L ALT (4-49) U/L Alkaline Phosphatase (38-126) U/L Troponin I <0.012 (0.000-0.034) ng/mL Total Protein (6.3-8.2) g/dL Albumin (3.5-5.0) g/dL Blood Type B Positive Blood Type Recheck B Pos Bld Type Recheck Status No Antibody Screen NEGATIVE Crossmatch See Detail Spec Expiration Date 12/29/20222312 Disposition Clinical Impression: Anemia Disposition: ADMITTED IP TO THIS HOSP Referrals: Parmjit Fernandez MD [Primary Care Provider] - 1-2 days Time of Disposition: 12:57
[2022-12-26 11:32] LABS: ALT 21 U/L (4-49); AST 42 U/L (17-59); African American GFR (CKD) >90 (>60 ml/min/1.73 sqM); Albumin 2.8 g/dL (3.5-5.0); Alkaline Phosphatase 126 U/L (38-126); Anion Gap 7 mmol/L; Blood Urea Nitrogen 19 mg/dL (9-20); Calcium 8.4 mg/dL (8.4-10.2); Carbon Dioxide 23 mmol/L (22-30); Chloride 107 mmol/L (98-107); Glucose 117 mg/dL (74-99); Magnesium 1.2 mg/dL (1.6-2.3); Non-African American GFR(CKD) >90 (>60 ml/min/1.73 sqM); Potassium 4.6 mmol/L (3.5-5.1); Sodium 137 mmol/L (137-145); Total Bilirubin 1.6 mg/dL (0.2-1.3); Total Protein 7.3 g/dL (6.3-8.2)
[2022-12-26 11:40] LABS: Anisocytosis Slight; Basophils % (A) 0 %; Eosinophils # (A) 0.1 k/uL (0-0.7); Eosinophils % (A) 3 %; Hypochromasia Marked; Lymphocytes # (A) 0.9 k/uL (1.0-4.8); Lymphocytes % (A) 21 %; MCH 31.9 pg (25.0-35.0); MCHC 31.1 g/dL (31.0-37.0); MCV 102.7 fL (80.0-100.0); Macrocytosis Moderate; Mean Platelet Volume 7.8; Monocytes # (A) 0.4 k/uL (0-1.0); Monocytes % (A) 9 %; Neutrophils # (A) 2.7 k/uL (1.3-7.7); Neutrophils % (A) 64 %; Platelet Count 121 k/uL (150-450); RBC 1.85 m/uL (4.30-5.90); RDW 17.9 % (11.5-15.5); WBC 4.2 k/uL (3.8-10.6)
[2022-12-26 11:41] LABS: HGB 5.9 gm/dL (13.0-17.5)
[2022-12-26 12:00] LABS: INR 1.3 (<1.2); Partial Thromboplastin Time 25.1 sec (22.0-30.0); Prothrombin Time 12.8 sec (9.0-12.0)
[2022-12-26] MEDS ORDERED: SODIUM CHLORIDE 0.9% 1,000 ML IV ONE (12:58)
[2022-12-26] MEDS: MAGNESIUM SULFATE-D5W PMX 1 GM in DEXTROSE/WATER 1 100ML.BAG IVPB SCH ×4 (15:01→19:52)
--- NOTE | 2022-12-26 16:05 | P.HPIM ---
History of Present Illness H&P Date: 12/26/22 Chief Complaint: anemia 57-year-old man with a medical history of alcohol abuse, alcoholic cirrhosis with esophageal varices, presented for evaluation of anemia. Patient saw his primary care physician for routine lab checks on Wednesday to follow-up his previously diagnosed alcoholic cirrhosis with bone marrow suppression and was found to be anemic down to 5.9 and was prompted to come to the emergency room for blood transfusion. Patient had no symptoms at the time of evaluation. He was hospitalized 2 weeks ago for complaints of dyspnea on exertion and are less fatigue and was found to be anemic, was transfused 1 unit of packed red blood cells and discharge. Patient has required approximately 4 transfusion since February 2022. During his hospital physician 2 weeks ago he was evaluated with endoscopy and colonoscopy and had no identifiable source of bleeding. Patient does continue to drink daily and was counseled on cessation. He denies fevers, chills, nausea, vomiting, chest pain, palpitations, syncope, presyncope, cough, dyspnea, abdominal pain, constipation, diarrhea, dysuria, dyschezia, numbness/weakness of extremities. In the emergency room, patient was afebrile, 129/49, heart rate 79, 99% on room air. CBC showed hemoglobin of 5.9, platelets of 121. Basic metabolic panel is unremarkable. Magnesium was 1.2. Liver function test showed total bilirubin of 1.6, albumin of 2.8. Troponin was less than 0.012. INR is 1.3. No images reviewed. Case was discussed with emergency room provider incision is management the patient to the hospital for anemia. All Systems reviewed and pertinent positives and negatives noted in HPI, all other symptoms are negative Gen: in no apparent distress, resting comfortably in bed Eyes: PERRL, no scleral injection or icterus HENT: normocephalic, atraumatic, good hearing acuity, moist mucous membranes Neck: no tracheal deviation, full range of motion Resp: good air exchange, breathing comfortably with no accessory muscle use, no tactile fremitus, clear to auscultation bilaterally CVS: good distal perfusion x 4, right lower extremity 2+ pitting edema superimposed on lymphedema, regular rate and rhythm without murmurs GI: soft, NTTP, ND, no hepatosplenomegaly : no suprapubic tenderness, no CVAT, jeff catheter not present MSK: no clubbing, no cyanosis, no noted contractures of extremities Skin: no noted rashes, petechiae; temperature of skin is appropriate Neuro: moving all extremities without signs of weakness, CN II-XII intact Psych: cooperative, euthymic mood, insight and judgment intact Assessment/plan: Anemia and thrombocytopenia 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 Liver cirrhosis secondary to alcohol use Esophageal varices -Transfuse 1 unit of packed blood cells -Hematology consult -Monitor on telemetry -Resume propanolol, spironolactone -Resume PPI BID -Alcohol cessation was strongly advised -Thiamine, folate, multivitamin Patient is full code Past Medical History Past Medical History: GERD/Reflux, Hypertension, Liver Disease Additional Past Medical History / Comment(s): esophageal varices and cirrhosis of liver History of Any Multi-Drug Resistant Organisms: None Reported Past Surgical History: Joint Replacement, Tonsillectomy Additional Past Surgical History / Comment(s): lt total hip Past Anesthesia/Blood Transfusion Reactions: No Reported Reaction Past Psychological History: Anxiety, Depression Smoking Status: Never smoker Past Alcohol Use History: Daily Past Drug Use History: None Reported - Past Family History Mother Family Medical History: Cancer Additional Family Medical History / Comment(s): lung cancer Medications and Allergies Home Medications Medication Instructions Recorded Confirmed Type Propranolol [Inderal] 10 mg PO BID 04/11/19 12/26/22 History Folic Acid 1 mg PO DAILY 02/19/22 12/26/22 History Ferrous Sulfate [Iron (65 MG 325 mg PO DAILY 05/27/22 12/26/22 History Elemental)] Multivitamins, Thera [Multivitamin 1 tab PO DAILY 05/27/22 12/26/22 History (formulary)] Cbd Oil Roll-On (Unknown Strength) 1 applic TOPICAL QID PRN 12/26/22 12/26/22 History Citalopram Hydrobromide [CeleXA] 40 mg PO DAILY 12/26/22 12/26/22 History Lidocaine 5% Patch [Lidoderm] 1 patch TOPICAL DAILY PRN 12/26/22 12/26/22 Histo ry Pantoprazole [Protonix] 40 mg PO BID 12/26/22 12/26/22 History Spironolactone [Aldactone] 50 mg PO DAILY 12/26/22 12/26/22 History Thiamine [Vitamin B-1] 100 mg PO DAILY 12/26/22 12/26/22 History Trospium Chloride 20 mg PO HS 12/26/22 12/26/22 History Allergies Allergy/AdvReac Type Severity Reaction Status Date / Time Penicillins Allergy Rash/Hives Verified 12/26/22 14:03 Physical Exam Osteopathic Statement: *. No significant issues noted on an osteopathic structural exam other than those noted in the History and Physical/Consult. Vitals: Vital Signs Temp Pulse Resp BP Pulse Ox 12/26/22 15:04 81 18 145/59 97 12/26/22 14:59 97.8 F 80 16 137/68 97 12/26/22 14:24 97 F L 68 16 141/67 97 12/26/22 14:00 97.6 F 69 16 141/67 12/26/22 13:31 97.6 F 82 16 132/67 97 12/26/22 13:11 98.7 F 82 16 122/55 97 12/26/22 13:01 97.8 F 82 16 122/62 97 12/26/22 12:22 98.7 F 67 18 125/73 98 12/26/22 10:24 98.7 F 79 20 129/49 99 Intake and Output 12/26/22 12/26/22 12/26/22 06:59 14:59 22:59 Intake Total 290 Balance 290 Intake: Blood Product 290 Rc Pheresis As-3 Unit 290 [id number] Other: Weight 102.058 kg Results CBC & Chem 7: 12/26/22 11:13 12/26/22 11:13 Labs: Abnormal Lab Results - Last 24 Hours (Table) 12/26/22 12/26/22 12/26/22 Range/Units 11:13 11:13 11:13 RBC 1.85 L (4.30-5.90) m/uL Hgb 5.9 L* (13.0-17.5) gm/dL Hct 19.0 L* (39.0-53.0) % MCV 102.7 H (80.0-100.0) fL RDW 17.9 H (11.5-15.5) % Plt Count 121 L (150-450) k/uL Lymphocytes # 0.9 L (1.0-4.8) k/uL PT 12.8 H (9.0-12.0) sec INR 1.3 H (<1.2) Glucose 117 H (74-99) mg/dL Magnesium 1.2 L (1.6-2.3) mg/dL Total Bilirubin 1.6 H (0.2-1.3) mg/dL Albumin 2.8 L (3.5-5.0) g/dL Crossmatch 12/26/22 Range/Units 11:13 RBC (4.30-5.90) m/uL Hgb (13.0-17.5) gm/dL Hct (39.0-53.0) % MCV (80.0-100.0) fL RDW (11.5-15.5) % Plt Count (150-450) k/uL Lymphocytes # (1.0-4.8) k/uL PT (9.0-12.0) sec INR (<1.2) Glucose (74-99) mg/dL Magnesium (1.6-2.3) mg/dL Total Bilirubin (0.2-1.3) mg/dL Albumin (3.5-5.0) g/dL Crossmatch See Detail
[2022-12-26 20:59] LABS: Anisocytosis Slight; Basophils % (A) 0 %; Eosinophils # (A) 0.2 k/uL (0-0.7); Eosinophils % (A) 4 %; HCT 22.6 % (39.0-53.0); Hypochromasia Slight; Lymphocytes # (A) 0.9 k/uL (1.0-4.8); Lymphocytes % (A) 22 %; MCH 32.4 pg (25.0-35.0); MCHC 33.3 g/dL (31.0-37.0); Macrocytosis Slight; Mean Platelet Volume 7.4; Monocytes # (A) 0.4 k/uL (0-1.0); Monocytes % (A) 10 %; Neutrophils # (A) 2.4 k/uL (1.3-7.7); Neutrophils % (A) 60 %; Platelet Count 107 k/uL (150-450); Poikilocytosis Slight; RBC 2.32 m/uL (4.30-5.90); RDW 17.9 % (11.5-15.5)
[2022-12-26] MEDS ORDERED: TROSPIUM CHLORIDE 20 MG TABLET PO SCH (21:00)
[2022-12-26 21:05] LABS: HGB 7.5 gm/dL (13.0-17.5); MCV 97.5 fL (80.0-100.0)
[2022-12-26] MEDS: PANTOPRAZOLE 40 MG TABLET PO SCH (21:36)
[2022-12-26] MEDS: PROPRANOLOL 10 MG TAB PO SCH (21:36)
[2022-12-27] MEDS ORDERED: ACETAMINOPHEN TAB 325 MG TAB PO PRN (01:46)
[2022-12-27] MEDS: PROPRANOLOL 10 MG TAB PO SCH (08:13)
[2022-12-27] MEDS: PANTOPRAZOLE 40 MG TABLET PO SCH (08:13)
[2022-12-27] MEDS ORDERED: FERROUS SULFATE 325 MG TAB PO SCH (09:00)
[2022-12-27] MEDS ORDERED: FOLIC ACID 1 MG TAB PO SCH (09:00)
[2022-12-27] MEDS ORDERED: CITALOPRAM HYDROBROMIDE 20 MG TAB PO SCH (09:00)
[2022-12-27] MEDS ORDERED: MULTIVITAMINS, THERA 1 EACH TAB PO SCH (09:00)
[2022-12-27] MEDS ORDERED: THIAMINE 100 MG TAB PO SCH (09:00)
[2022-12-27] MEDS ORDERED: SPIRONOLACTONE 25 MG TAB PO SCH (09:00)
[2022-12-27 12:03] LABS: Anisocytosis Slight; Basophils % (A) 0 %; Eosinophils # (A) 0.2 k/uL (0-0.7); Eosinophils % (A) 5 %; HCT 22.3 % (39.0-53.0); HGB 7.1 gm/dL (13.0-17.5); Hypochromasia Marked; Lymphocytes # (A) 0.6 k/uL (1.0-4.8); Lymphocytes % (A) 19 %; MCH 32.1 pg (25.0-35.0); MCHC 31.9 g/dL (31.0-37.0); MCV 100.6 fL (80.0-100.0); Macrocytosis Moderate; Mean Platelet Volume 7.7; Monocytes # (A) 0.4 k/uL (0-1.0); Monocytes % (A) 10 %; Neutrophils # (A) 2.1 k/uL (1.3-7.7); Neutrophils % (A) 63 %; Platelet Count 109 k/uL (150-450); Poikilocytosis Moderate; RBC 2.21 m/uL (4.30-5.90); RDW 18.3 % (11.5-15.5); WBC 3.4 k/uL (3.8-10.6)
--- NOTE | 2022-12-27 12:27 | P.DS ---
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 In the emergency room, patient was afebrile, 129/49, heart rate 79, 99% on room air. CBC showed hemoglobin of 5.9, platelets of 121. Basic metabolic panel is unremarkable. Magnesium was 1.2. Liver function test showed total bilirubin of 1.6, albumin of 2.8. Troponin was less than 0.012. INR is 1.3. No images reviewed. Case was discussed with emergency room provider incision is management the patient to the hospital for anemia. Pt was admitted to observation and rec'd 2 U of PRBCs. Hgb responded appropriately. Pt was counseled on f/u with PCP for routine CBCs, early next week, and to obtain hematology referral for outpatient blood transfusions. Pt was also strongly advised to stop drinking completely at this time. Gen: in no apparent distress, resting comfortably in bed Eyes: PERRL, no scleral injection or icterus HENT: normocephalic, atraumatic, good hearing acuity, moist mucous membranes Neck: no tracheal deviation, full range of motion Resp: good air exchange, breathing comfortably with no accessory muscle use, no tactile fremitus, clear to auscultation bilaterally CVS: good distal perfusion x 4, right lower extremity 2+ pitting edema superimposed on lymphedema, regular rate and rhythm without murmurs GI: soft, NTTP, ND, no hepatosplenomegaly : no suprapubic tenderness, no CVAT, jeff catheter not present MSK: no clubbing, no cyanosis, no noted contractures of extremities Skin: no noted rashes, petechiae; temperature of skin is appropriate Neuro: moving all extremities without signs of weakness, CN II-XII intact Psych: cooperative, euthymic mood, insight and judgment intact Patient Condition at Discharge: Good Plan - Discharge Summary Discharge Rx Participant: No New Discharge Prescriptions: New Acetaminophen Tab [Tylenol] 650 mg PO Q6HR PRN tab PRN Reason: Fever And/ Or Pain Continue Propranolol [Inderal] 10 mg PO BID Folic Acid 1 mg PO DAILY Ferrous Sulfate [Iron (65 MG Elemental)] 325 mg PO DAILY Pantoprazole [Protonix] 40 mg PO BID Citalopram Hydrobromide [CeleXA] 40 mg PO DAILY Trospium Chloride 20 mg PO HS Multivitamins, Thera [Multivitamin (formulary)] 1 tab PO DAILY Thiamine [Vitamin B-1] 100 mg PO DAILY Spironolactone [Aldactone] 50 mg PO DAILY Lidocaine 5% Patch [Lidoderm 5% Patch] 1 patch TOPICAL DAILY PRN PRN Reason: Pain Cbd Oil Roll-On (Unknown Strength) 1 applic TOPICAL QID PRN PRN Reason: ankle pain Discharge Medication List Propranolol [Inderal] 10 mg PO BID 04/11/19 [History] Folic Acid 1 mg PO DAILY 02/19/22 [History] Ferrous Sulfate [Iron (65 MG Elemental)] 325 mg PO DAILY 05/27/22 [History] Multivitamins, Thera [Multivitamin (formulary)] 1 tab PO DAILY 05/27/22 [History] Cbd Oil Roll-On (Unknown Strength) 1 applic TOPICAL QID PRN 12/26/22 [History] Citalopram Hydrobromide [CeleXA] 40 mg PO DAILY 12/26/22 [History] Lidocaine 5% Patch [Lidoderm 5% Patch] 1 patch TOPICAL DAILY PRN 12/26/22 [History] Pantoprazole [Protonix] 40 mg PO BID 12/26/22 [History] Spironolactone [Aldactone] 50 mg PO DAILY 12/26/22 [History] Thiamine [Vitamin B-1] 100 mg PO DAILY 12/26/22 [History] Trospium Chloride 20 mg PO HS 12/26/22 [History] Acetaminophen Tab [Tylenol] 650 mg PO Q6HR PRN tab 12/27/22 [Rx] Follow up Appointment(s)/Referral(s): Parmjit Fernandez MD [Primary Care Provider] - 1-2 days Discharge Disposition: HOME SELF-CARE
[2022-12-27 12:33] VITALS: BP 117/56; PULSE 68; RESP 18; TEMP 98.5
--- NOTE | 2022-12-27 12:52 | P.CONS ---
History of Present Illness - Reason for Consult Consult date: 12/27/22 anemia, thrombocytopenia Requesting physician: Pancho Oh - Chief Complaint abn lab - History of Present Illness Mr. Wyatt is a 57-year-old male with a past medical history of arthritis, EtOH cirrhosis, and hypertension we have been asked to see for anemia and throm bocytopenia. He was seen by Dr. Shen in 2019 and worked up for the same. Patient's platelets were in the 50-60,000 range at that time, hemoglobin and WBCs 4 borderline low. SPEP, immunofixation were negative, no specific nutritional deficiencies were revealed. Patient has had upper endoscopy 02/2022 revealing gastritis and some small fundal varices, no esophageal varices were seen. 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 Unfortunately patient has persistent alcohol use. He is mildly coagulopathic, secondary to liver disease. He did not follow-up with Hematology. He denies any epistaxis, hematemesis, black or bloody stool, hematuria. Review of Systems 10 point review of systems is negative except as stated in HPI Past Medical History Past Medical History: GERD/Reflux, Hypertension, Liver Disease Additional Past Medical History / Comment(s): esophageal varices and cirrhosis of liver History of Any Multi-Drug Resistant Organisms: None Reported Past Surgical History: Joint Replacement, Tonsillectomy Additional Past Surgical History / Comment(s): lt total hip Past Anesthesia/Blood Transfusion Reactions: No Reported Reaction Past Psychological History: Anxiety, Depression Smoking Status: Never smoker Past Alcohol Use History: Daily Past Drug Use History: None Reported - Past Family History Mother Family Medical History: Cancer Additional Family Medical History / Comment(s): lung cancer Father Family Medical History: Myocardial Infarction ([place]) Medications and Allergies Home Medications Medication Instructions Recorded Confirmed Type Propranolol [Inderal] 10 mg PO BID 04/11/19 12/26/22 History Folic Acid 1 mg PO DAILY 02/19/22 12/26/22 History Ferrous Sulfate [Iron (65 MG 325 mg PO DAILY 05/27/22 12/26/22 History Elemental)] Multivitamins, Thera [Multivitamin 1 tab PO DAILY 05/27/22 12/26/22 History (formulary)] Cbd Oil Roll-On (Unknown Strength) 1 applic TOPICAL QID PRN 12/26/22 12/26/22 History Citalopram Hydrobromide [CeleXA] 40 mg PO DAILY 12/26/22 12/26/22 History Lidocaine 5% Patch [Lidoderm 5% 1 patch TOPICAL DAILY PRN 12/26/22 12/26/22 History Patch] Pantoprazole [Protonix] 40 mg PO BID 12/26/22 12/26/22 History Spironolactone [Aldactone] 50 mg PO DAILY 12/26/22 12/26/22 History Thiamine [Vitamin B-1] 100 mg PO DAILY 12/26/22 12/26/22 History Trospium Chloride 20 mg PO HS 12/26/22 12/26/22 History Acetaminophen Tab [Tylenol] 650 mg PO Q6HR PRN tab 12/27/22 Rx Allergies Allergy/AdvReac Type Severity Reaction Status Date / Time Penicillins Allergy Rash/Hives Verified 12/26/22 14:03 Physical Exam Vitals: Vital Signs Temp Pulse Pulse Resp BP BP Pulse Ox 12/27/22 08:40 72 16 12/27/22 08:02 97.9 F 72 16 128/55 98 12/27/22 02:00 98.6 F 78 16 133/57 95 12/26/22 23:19 98.8 F 77 18 108/52 98 12/26/22 21:57 79 18 131/67 98 12/26/22 20:20 82 18 134/65 98 12/26/22 19:05 80 18 133/63 97 12/26/22 16:50 98.7 F 86 16 145/68 97 12/26/22 16:30 98.6 F 84 18 148/67 97 12/26/22 15:04 81 18 145/59 97 12/26/22 15:00 97.6 F 84 16 128/54 97 12/26/22 14:59 97.8 F 80 16 137/68 97 12/26/22 14:24 97 F L 68 16 141/67 97 12/26/22 14:00 97.6 F 69 16 141/67 12/26/22 13:31 97.6 F 82 16 132/67 97 12/26/22 13:11 98.7 F 82 16 122/55 97 12/26/22 13:01 97.8 F 82 16 122/62 97 12/26/22 12:22 98.7 F 67 18 125/73 98 12/26/22 10:24 98.7 F 79 20 129/49 99 Intake and Output 12/26/22 12/27/22 12/27/22 22:59 06:59 14:59 Intake Total 310 Output Total 300 400 Balance 310 -300 -400 Intake: Blood Product 310 Rc Irr As1 Unit 310 [id number] Output: Urine 300 400 Other: Voiding Method Toilet - Constitutional General appearance: average body habitus, cooperative, no acute distress - EENT Eyes: anicteric sclerae, EOMI ENT: hearing grossly normal, normal oropharynx - Neck Neck: no lymphadenopathy - Respiratory Respiratory: bilateral: CTA - Cardiovascular Rhythm: regular Heart sounds: normal: S1, S2 Abnormal Heart Sounds: systolic murmur leg Peripheral Edema: right: 2+, left: None - Gastrointestinal General gastrointestinal: no absent bowel sounds, no decreased bowel sounds, no distended, hepatomegaly, no hyperactive bowel sounds, normal bowel sounds, no organomegaly, no rigid, no scaphoid, soft, no splenomegaly, no tenderness, no umbilical hernia, no ventral hernia - Integumentary Integumentary: normal - Neurologic Neurologic: CNII-XII intact - Musculoskeletal Musculoskeletal: strength equal bilaterally - Psychiatric Psychiatric: A&O x's 3, appropriate affect, intact judgment & insight Results CBC & Chem 7: 12/27/22 11:27 12/26/22 11:13 Labs: Abnormal Lab Results - Last 24 Hours (Table) 12/26/22 12/26/22 12/26/22 Range/Units 11:13 11:13 11:13 RBC 1.85 L (4.30-5.90) m/uL Hgb 5.9 L* (13.0-17.5) gm/dL Hct 19.0 L* (39.0-53.0) % MCV 102.7 H (80.0-100.0) fL RDW 17.9 H (11.5-15.5) % Plt Count 121 L (150-450) k/uL Lymphocytes # 0.9 L (1.0-4.8) k/uL PT 12.8 H (9.0-12.0) sec INR 1.3 H (<1.2) Glucose 117 H (74-99) mg/dL Magnesium 1.2 L (1.6-2.3) mg/dL Total Bilirubin 1.6 H (0.2-1.3) mg/dL Albumin 2.8 L (3.5-5.0) g/dL Crossmatch 12/26/22 12/26/22 Range/Units 11:13 20:04 RBC 2.32 L (4.30-5.90) m/uL Hgb 7.5 L D (13.0-17.5) gm/dL Hct 22.6 L (39.0-53.0) % MCV (80.0-100.0) fL RDW 17.9 H (11.5-15.5) % Plt Count 107 L (150-450) k/uL Lymphocytes # 0.9 L (1.0-4.8) k/uL PT (9.0-12.0) sec INR (<1.2) Glucose (74-99) mg/dL Magnesium (1.6-2.3) mg/dL Total Bilirubin (0.2-1.3) mg/dL Albumin (3.5-5.0) g/dL Crossmatch See Detail CT scan - abdomen: report reviewed (06/16/22) CT scan - pelvis: report reviewed (05/27/22) US - abdomen: report reviewed (05/04, irregular liver, no, on the spleen) Venous US: report reviewed (05/27/22, right lower extremity Doppler negative for DVT) Assessment and Plan (1) Pancytopenia Current Visit: Yes Status: Chronic Priority: High Code(s): D61.818 - OTHER PANCYTOPENIA SNOMED Code(s): 767294743 (2) Coagulopathy Current Visit: Yes Status: Chronic Priority: Medium Code(s): D68.9 - COAGULATION DEFECT, UNSPECIFIED SNOMED Code(s): 13615977 Plan: Pancytopenia -Multifactorial, including EtOH marrow suppression, splenic sequestration, gastric varices. This was reviewed with patient -Patient did not have a complete response to 2 units of packed red blood cells. Transfuse for Hgb <7 -Platelets lower then normal but, adequate -When asked if he wanted to follow up with Hematology he said not at this time. He said that this is the second time he has needed a transfusion in the last 5 weeks. I told him if he was not going to follow-up with Hematology that he n eeded to follow up with his PCP and have his CBC checked frequently so that he can be transfused outpatient. He verbalized understanding -He reports he follows with Gastroenterology, encouraged to follow-up due to the recent increase in need for blood transfusions, ? variceal bleeding. Or, is the more frequent need for transfusion due to nutrition or disease of the marrow. Nutritional studies ordered, paraproteinemia workup ordered. Will watch for the results. If anything is unusual or needing more work up, patient will be contacted for follow-up. Mild coagulopathy -Coags are the lowest they've been in this medical record but, still elevated -Secondary to liver disease. -INR has remained below 2. -Patient was counseled on progressive liver damage from alcohol. Encouraged to seek assistance with cessation.
[2022-12-27 23:08] LABS: Albumin 2.4 d/dL (3.8-4.9); Protein, Total 6.1 d/dL (6.2-8.2)
[2022-12-27 23:21] LABS: % Iron Saturation 44.71 (15.00-50.00); Ferritin 76.8 ng/mL (22.0-322.0)
[2022-12-28 10:40] LABS: Free Lambda Lt Chain Qnt, Seru 11.42 mg/dL (0.57-2.63)
[2022-12-28 11:11] LABS: Free Kappa Lt Chain Qnt, Serum 14.75 mg/dL (0.33-1.94)
[2022-12-29 18:57] LABS: Gamma Globulin 2.45 d/dL (0.70-1.50)
== END 2022-12-27 13:25 | disposition home or self-care (01) | DRG 813 ==
LOC: EC 10:11 → 5NMEDONC 12:59
PROVIDERS: ADMIT Internal Medicine; ATTEND Internal Medicine
PROC: 30233N1 Transfusion of Nonautologous Red Blood Cells into Peripheral Vein, Percutaneous Approach (ICD-10-PCS; principal; 2022-12-26)
DX: D68.9 Coagulation defect, unspecified (principal); D61.89 Other specified aplastic anemias and other bone marrow failure syndromes; D61.818 Other pancytopenia; I85.10 Secondary esophageal varices without bleeding; K70.30 Alcoholic cirrhosis of liver without ascites; M19.90 Unspecified osteoarthritis, unspecified site; D73.89 Other diseases of spleen; F41.9 Anxiety disorder, unspecified; F32.A Depression, unspecified; I10 Essential (primary) hypertension; Z96.642 Presence of left artificial hip joint; K21.9 Gastro-esophageal reflux disease without esophagitis; Z79.899 Other long term (current) drug therapy; Z71.41 Alcohol abuse counseling and surveillance of alcoholic
CPT/HCPCS: 36415; 36430; 80053; 82525; 82607; 82728; 82747; 83540; 83550; 83735; 83883; 84165; 84484; 85025; 85610; 85730; 86334; 86850; 86900; 86901; 86920; 96361; 96365; 96366; 99285

== ENCOUNTER 2023-01-13 10:48 | Emergency (ER) | payer BC ==
--- NOTE | 2023-01-13 11:34 | ED ---
Recheck HPI - General Chief Complaint: Recheck/Abnormal Lab/Rx Stated Complaint: weakness Time Seen by Provider: 01/13/23 11:23 Source: patient, RN notes reviewed Mode of arrival: wheelchair Limitations: no limitations - History of Present Illness Initial Comments: This is a 57-year-old male who presents to the emergency department for low hemoglobin. Patient has a history of anemia secondary to alcoholic cirrhosis. He does have his blood work checked frequently with YONY Lira, as he has required several blood transfusions. He had his blood work checked yesterday at [facility] as part of his routine lab work, and he was told that his hemoglobin was 7.2, and he was instructed to come to the emergency department by his PCP for a transfusion, due to the concern that it would continue to drop. Denies any weakness or fatigue. Also denies any blood in his stool or black or tarry stools. He had his first appointment with hematology in February. He has however been evaluated by hematology during prior admissions for low hemoglobin. MD Complaint: abnormal lab - Related Data Home Medications Medication Instructions Recorded Confirmed Propranolol [Inderal] 10 mg PO BID 04/11/19 12/26/22 Folic Acid 1 mg PO DAILY 02/19/22 12/26/22 Ferrous Sulfate [Iron (65 MG 325 mg PO DAILY 05/27/22 12/26/22 Elemental)] Multivitamins, Thera [Multivitamin 1 tab PO DAILY 05/27/22 12/26/22 (formulary)] Cbd Oil Roll-On (Unknown Strength) 1 applic TOPICAL QID PRN 12/26/22 12/26/22 Citalopram Hydrobromide [CeleXA] 40 mg PO DAILY 12/26/22 12/26/22 Lidocaine 5% Patch [Lidoderm 5% 1 patch TOPICAL DAILY PRN 12/26/22 12/26/22 Patch] Pantoprazole [Protonix] 40 mg PO BID 12/26/22 12/26/22 Spironolactone [Aldactone] 50 mg PO DAILY 12/26/22 12/26/22 Thiamine [Vitamin B-1] 100 mg PO DAILY 12/26/22 12/26/22 Trospium Chloride 20 mg PO HS 12/26/22 12/26/22 Previous Rx's Medication Instructions Recorded Acetaminophen Tab [Tylenol] 650 mg PO Q6HR PRN tab 12/27/22 Allergies Allergy/AdvReac Type Severity Reaction Status Date / Time Penicillins Allergy Rash/Hives Verified 01/13/23 11:09 Review of Systems ROS Statement: Those systems with pertinent positive or pertinent negative responses have been documented in the HPI. ROS Other: All systems not noted in ROS Statement are negative. Past Medical History Past Medical History: GERD/Reflux, Hypertension, Liver Disease Additional Past Medical History / Comment(s): esophageal varices and cirrhosis of liver History of Any Multi-Drug Resistant Organisms: None Reported Past Surgical History: Joint Replacement, Tonsillectomy Additional Past Surgical History / Comment(s): lt total hip Past Anesthesia/Blood Transfusion Reactions: No Reported Reaction Past Psychological History: Anxiety, Depression Smoking Status: Never smoker Past Alcohol Use History: Daily Past Drug Use History: None Reported - Past Family History Mother Family Medical History: Cancer Additional Family Medical History / Comment(s): lung cancer Father Family Medical History: Myocardial Infarction ([place]) General Exam Limitations: no limitations General appearance: alert, in no apparent distress Head exam: Present: atraumatic, normocephalic, normal inspection Eye exam: Present: normal appearance, PERRL, EOMI. Absent: scleral icterus, conjunctival injection, periorbital swelling Respiratory exam: Present: normal lung sounds bilaterally. Absent: respiratory distress, wheezes, rales, rhonchi, stridor Cardiovascular Exam: Present: regular rate, normal rhythm, normal heart sounds. Absent: systolic murmur, diastolic murmur, rubs, gallop, clicks Neurological exam: Present: alert, oriented X3, CN II-XII intact Psychiatric exam: Present: normal affect, normal mood Skin exam: Present: warm, dry, intact, normal color. Absent: rash Course Vital Signs 01/13/23 01/13/23 01/13/23 11:08 14:05 14:16 Temperature 97.9 F 98.6 F 98.5 F Pulse Rate 71 67 67 Respiratory 16 16 16 Rate Blood Pressure 124/69 118/63 123/62 O2 Sat by Pulse 100 98 Oximetry 01/13/23 01/13/23 14:36 16:13 Temperature 98.5 F 98.5 F Pulse Rate 68 86 Respiratory 16 16 Rate Blood Pressure 116/62 125/68 O2 Sat by Pulse Oximetry Medical Decision Making - Medical Decision Making This is a 57-year-old male who presents to the emergency department for low hemoglobin. Was pt. sent in by a medical professional or institution? @ -His PCP Did you speak to anyone other than the patient for history? @ -No Did you review nursing and triage notes? @ -Yes, and I agree, it is accurate with regards to the patient's symptoms. Were old charts reviewed? @ -No Differential Diagnosis? @ -Differential Anemia: Anemia of chronic disease, cirrhosis, GI bleed, B12 deficiency, this is not meant to be an all-inclusive list. EKG interpreted by me (3pts min.)? @ -Not obtained X-rays interpreted by me (1pt min.)? @ -Not obtained CT interpreted by me (1pt min.)? @ -Not obtained U/S interpreted by me (1pt. min.)? @ -Not obtained What testing was considered but not performed? (CT, X-rays, U/S, labs)? Why? @ -None What meds were considered but not given? Why? @ -None Did you discuss the management of the patient with other professionals? @ -No Did you reconcile home meds? @ -No Was smoking cessation discussed for >3mins.? @ -I discussed smoking cessation for greater than 3 minutes. The risk of smoking were discussed with the patient including but not limited to risks of cancer, stroke, coronary artery disease and COPD. Also discussed with patient were multiple methods of quitting smoking. Lastly we discussed the financial cost of smoking. Was critical care preformed (if so, how long)? @ -No Were there social determinants of health that impacted care today? How? (Homelessness, low income, unemployed, alcoholism, drug addiction, transportation, low edu. Level, literacy, decrease access to med. care, prison, rehab)? @ -Alcoholism, causing the liver cirrhosis, which likely caused him to experience anemia and require blood transfusions. Was there de-escalation of care discussed even if they declined? (Discuss DNR or withdrawal of care, Hospice)? @ -No What co-morbidities impacted this encounter? (DM, HTN, Smoking, COPD, CAD, Cancer, CVA, Hep., AIDS, mental health diagnosis, sleep apnea, morbid obesity)? @ -Anemia, alcoholism Was patient admitted / discharged? @ -Discharged. Lab work obtained revealing a hemoglobin of 7.1, which is fairly stable when compared with yesterday and his prior admission. Discussed with the patient that at this level, a transfusion is technically not indicated. However, patient states that his PCP requested a transfusion due to concern that his hemoglobin would continue to drop. He was subsequently transfused with 1 unit of packed red blood cells and then discharged home in stable condition. Advised follow-up with his PCP and YONY Lira. Undiagnosed new problem with uncertain prognosis? @ -None Drug Therapy requiring intensive monitoring for toxicity (Heparin, Nitro, Insulin, Cardizem)? @ -None Were any procedures done? @ -None Diagnosis/symptom? @ -Anemia Acute, or Chronic, or Acute on Chronic? @ -Acute on chronic Uncomplicated (without systemic symptoms) or Complicated (systemic symptoms)? @ -Uncomplicated Side effects of treatment? @ -None Exacerbation, Progression, or Severe Exacerbation] @ -Progression Poses a threat to life or bodily function? @ -Not at its current level Return precautions reviewed in depth, the patient is instructed to return to the emergency department with any new, worsening, or concerning symptoms. Patient verbalized understanding. This case was discussed in detail with the attending ED physician, Dr. Orantes. Presentation, findings, and treatment plan discussed in detail as well. - Lab Data Result diagrams: 01/13/23 12:17 01/13/23 12:17 Lab Results 01/13/23 01/13/23 01/13/23 Range/Units 12:15 12:17 12:17 WBC 3.1 L (3.8-10.6) k/uL RBC 2.19 L (4.30-5.90) m/uL Hgb 7.1 L (13.0-17.5) gm/dL Hct 21.7 L (39.0-53.0) % MCV 99.3 (80.0-100.0) fL MCH 32.5 (25.0-35.0) pg MCHC 32.7 (31.0-37.0) g/dL RDW 15.0 (11.5-15.5) % Plt Count 132 L (150-450) k/uL MPV 8.1 Neutrophils % 57 % Lymphocytes % 24 % Monocytes % 9 % Eosinophils % 6 % Basophils % 1 % Neutrophils # 1.8 (1.3-7.7) k/uL Lymphocytes # 0.8 L (1.0-4.8) k/uL Monocytes # 0.3 (0-1.0) k/uL Eosinophils # 0.2 (0-0.7) k/uL Basophils # 0.0 (0-0.2) k/uL Hypochromasia Moderate Macrocytosis Slight PT 13.8 H (10.0-12.5) sec INR 1.3 H (<1.2) APTT 26.7 (22.0-30.0) sec Sodium (137-145) mmol/L Potassium (3.5-5.1) mmol/L Chloride (98-107) mmol/L Carbon Dioxide (22-30) mmol/L Anion Gap mmol/L BUN (9-20) mg/dL Creatinine (0.66-1.25) mg/dL Est GFR (CKD-EPI)AfAm (>60 ml/min/1.73 sqM) Est GFR (CKD-EPI)NonAf (>60 ml/min/1.73 sqM) Glucose (74-99) mg/dL Calcium (8.4-10.2) mg/dL Total Bilirubin (0.2-1.3) mg/dL AST (17-59) U/L ALT (4-49) U/L Alkaline Phosphatase (38-126) U/L Total Protein (6.3-8.2) g/dL Albumin (3.5-5.0) g/dL Blood Type B Positive Blood Type Recheck B Pos Bld Type Recheck Status No Antibody Screen NEGATIVE Crossmatch See Detail Spec Expiration Date 01/16/2023 - 231401/13/23 Range/Units 12:17 WBC (3.8-10.6) k/uL RBC (4.30-5.90) m/uL Hgb (13.0-17.5) gm/dL Hct (39.0-53.0) % MCV (80.0-100.0) fL MCH (25.0-35.0) pg MCHC (31.0-37.0) g/dL RDW (11.5-15.5) % Plt Count (150-450) k/uL MPV Neutrophils % % Lymphocytes % % Monocytes % % Eosinophils % % Basophils % % Neutrophils # (1.3-7.7) k/uL Lymphocytes # (1.0-4.8) k/uL Monocytes # (0-1.0) k/uL Eosinophils # (0-0.7) k/uL Basophils # (0-0.2) k/uL Hypochromasia Macrocytosis PT (10.0-12.5) sec INR (<1.2) APTT (22.0-30.0) sec Sodium 136 L (137-145) mmol/L Potassium 4.1 (3.5-5.1) mmol/L Chloride 106 (98-107) mmol/L Carbon Dioxide 23 (22-30) mmol/L Anion Gap 7 mmol/L BUN 17 (9-20) mg/dL Creatinine 0.84 (0.66-1.25) mg/dL Est GFR (CKD-EPI)AfAm >90 (>60 ml/min/1.73 sqM) Est GFR (CKD-EPI)NonAf >90 (>60 ml/min/1.73 sqM) Glucose 170 H (74-99) mg/dL Calcium 8.6 (8.4-10.2) mg/dL Total Bilirubin 1.4 H (0.2-1.3) mg/dL AST 36 (17-59) U/L ALT 21 (4-49) U/L Alkaline Phosphatase 108 (38-126) U/L Total Protein 7.3 (6.3-8.2) g/dL Albumin 2.8 L (3.5-5.0) g/dL Blood Type Blood Type Recheck Bld Type Recheck Status Antibody Screen Crossmatch Spec Expiration Date Disposition Clinical Impression: Anemia, Nicotine dependence, Liver cirrhosis Disposition: HOME SELF-CARE Instructions (If sedation given, give patient instructions): Blood Transfusion Reactions (ED), Blood Transfusion (DC) Additional Instructions: Return to the emergency department with any new, worsening, or concerning symptoms. Follow up with your primary care provider in 1-2 days. Is patient prescribed a controlled substance at d/c from ED?: No Referrals: Parmjit Fernandez MD [Primary Care Provider] - 1-2 days
[2023-01-13 11:44] VITALS: RESP 16
[2023-01-13 12:35] LABS: Basophils % (A) 1 %; Eosinophils # (A) 0.2 k/uL (0-0.7); Eosinophils % (A) 6 %; HCT 21.7 % (39.0-53.0); HGB 7.1 gm/dL (13.0-17.5); Hypochromasia Moderate; Lymphocytes # (A) 0.8 k/uL (1.0-4.8); Lymphocytes % (A) 24 %; MCH 32.5 pg (25.0-35.0); MCHC 32.7 g/dL (31.0-37.0); MCV 99.3 fL (80.0-100.0); Macrocytosis Slight; Mean Platelet Volume 8.1; Monocytes # (A) 0.3 k/uL (0-1.0); Monocytes % (A) 9 %; Neutrophils # (A) 1.8 k/uL (1.3-7.7); Neutrophils % (A) 57 %; Platelet Count 132 k/uL (150-450); RBC 2.19 m/uL (4.30-5.90); WBC 3.1 k/uL (3.8-10.6)
[2023-01-13 12:46] LABS: INR 1.3 (<1.2); Partial Thromboplastin Time 26.7 sec (22.0-30.0); Prothrombin Time 13.8 sec (10.0-12.5)
[2023-01-13 12:51] LABS: ALT 21 U/L (4-49); AST 36 U/L (17-59); African American GFR (CKD) >90 (>60 ml/min/1.73 sqM); Albumin 2.8 g/dL (3.5-5.0); Alkaline Phosphatase 108 U/L (38-126); Anion Gap 7 mmol/L; Blood Urea Nitrogen 17 mg/dL (9-20); Calcium 8.6 mg/dL (8.4-10.2); Carbon Dioxide 23 mmol/L (22-30); Chloride 106 mmol/L (98-107); Glucose 170 mg/dL (74-99); Non-African American GFR(CKD) >90 (>60 ml/min/1.73 sqM); Potassium 4.1 mmol/L (3.5-5.1); Sodium 136 mmol/L (137-145); Total Bilirubin 1.4 mg/dL (0.2-1.3); Total Protein 7.3 g/dL (6.3-8.2)
[2023-01-13 14:32] VITALS: TEMP 98.5
[2023-01-13 16:32] VITALS: BP 125/68; PULSE 86
== END 2023-01-13 16:41 | disposition home or self-care (01) ==
LOC: EC 10:48
DX: D64.9 Anemia, unspecified (principal); F17.200 Nicotine dependence, unspecified, uncomplicated; K74.60 Unspecified cirrhosis of liver; K21.9 Gastro-esophageal reflux disease without esophagitis; I10 Essential (primary) hypertension; F41.9 Anxiety disorder, unspecified; F32.A Depression, unspecified; Z88.0 Allergy status to penicillin; Z79.899 Other long term (current) drug therapy
CPT/HCPCS: 36415; 86900; 86901; 80053; 85025; 85610; 85730; 86850; 86920; 99284; 36430; 99406; P9016

== ENCOUNTER 2023-01-27 15:41 | Emergency (ER) | payer BC ==
[2023-01-27 16:05] VITALS: RESP 18; TEMP 98.4
[2023-01-27 17:04] LABS: ALT 21 U/L (4-49); AST 35 U/L (17-59); African American GFR (CKD) >90 (>60 ml/min/1.73 sqM); Albumin 3.1 g/dL (3.5-5.0); Alkaline Phosphatase 142 U/L (38-126); Anion Gap 11 mmol/L; Blood Urea Nitrogen 15 mg/dL (9-20); Calcium 8.7 mg/dL (8.4-10.2); Carbon Dioxide 20 mmol/L (22-30); Chloride 105 mmol/L (98-107); Glucose 123 mg/dL (74-99); Non-African American GFR(CKD) >90 (>60 ml/min/1.73 sqM); Sodium 136 mmol/L (137-145); Total Bilirubin 0.9 mg/dL (0.2-1.3); Total Protein 7.9 g/dL (6.3-8.2)
[2023-01-27 17:12] LABS: Basophils % (A) 0 %; Eosinophils # (A) 0.1 k/uL (0-0.7); Eosinophils % (A) 3 %; HCT 23.3 % (39.0-53.0); HGB 7.3 gm/dL (13.0-17.5); Hypochromasia Marked; Lymphocytes # (A) 1.1 k/uL (1.0-4.8); Lymphocytes % (A) 22 %; MCH 30.2 pg (25.0-35.0); MCHC 31.4 g/dL (31.0-37.0); MCV 96.2 fL (80.0-100.0); Mean Platelet Volume 7.2; Monocytes # (A) 0.4 k/uL (0-1.0); Monocytes % (A) 8 %; Neutrophils # (A) 3.4 k/uL (1.3-7.7); Neutrophils % (A) 65 %; Platelet Count 194 k/uL (150-450); Poikilocytosis Slight; RBC 2.42 m/uL (4.30-5.90); RDW 13.9 % (11.5-15.5); WBC 5.2 k/uL (3.8-10.6)
--- NOTE | 2023-01-27 18:21 | ED ---
General Adult HPI - General Chief complaint: Recheck/Abnormal Lab/Rx Stated complaint: low hemaglobin Time Seen by Provider: 01/27/23 18:07 Source: patient, RN notes reviewed, old records reviewed Mode of arrival: wheelchair - History of Present Illness Initial comments: 57-year-old male history of liver disease and anemia presents with low hemoglobin as an outpatient. Patient has required transfusion in the past. He states he feels fine, no chest pain, no dyspnea, no abdominal pain. He is abstaining from alcohol. He denies melena. Denies rectal bleeding. States he was told to present to the emergency department by his primary care provider. He does not know the level of his hemoglobin. - Related Data Home Medications Medication Instructions Recorded Confirmed Propranolol [Inderal] 10 mg PO BID 04/11/19 12/26/22 Folic Acid 1 mg PO DAILY 02/19/22 12/26/22 Ferrous Sulfate [Iron (65 MG 325 mg PO DAILY 05/27/22 12/26/22 Elemental)] Multivitamins, Thera [Multivitamin 1 tab PO DAILY 05/27/22 12/26/22 (formulary)] Cbd Oil Roll-On (Unknown Strength) 1 applic TOPICAL QID PRN 12/26/22 12/26/22 Citalopram Hydrobromide [CeleXA] 40 mg PO DAILY 12/26/22 12/26/22 Lidocaine 5% Patch [Lidoderm 5% 1 patch TOPICAL DAILY PRN 12/26/22 12/26/22 Patch] Pantoprazole [Protonix] 40 mg PO BID 12/26/22 12/26/22 Spironolactone [Aldactone] 50 mg PO DAILY 12/26/22 12/26/22 Thiamine [Vitamin B-1] 100 mg PO DAILY 12/26/22 12/26/22 Trospium Chloride 20 mg PO HS 12/26/22 12/26/22 Previous Rx's Medication Instructions Recorded Acetaminophen Tab [Tylenol] 650 mg PO Q6HR PRN tab 12/27/22 Allergies Allergy/AdvReac Type Severity Reaction Status Date / Time Penicillins Allergy Rash/Hives Verified 01/27/23 16:04 Review of Systems ROS Statement: Those systems with pertinent positive or pertinent negative responses have been documented in the HPI. ROS Other: All systems not noted in ROS Statement are negative. Past Medical History Past Medical History: GERD/Reflux, Hypertension, Liver Disease Additional Past Medical History / Comment(s): esophageal varices and cirrhosis of liver History of Any Multi-Drug Resistant Organisms: None Reported Past Surgical History: Joint Replacement, Tonsillectomy Additional Past Surgical History / Comment(s): lt total hip Past Anesthesia/Blood Transfusion Reactions: No Reported Reaction Past Psychological History: Anxiety, Depression Smoking Status: Never smoker Past Alcohol Use History: Daily Past Drug Use History: None Reported - Past Family History Mother Family Medical History: Cancer Additional Family Medical History / Comment(s): lung cancer Father Family Medical History: Myocardial Infarction ([place]) General Exam General appearance: alert, in no apparent distress Head exam: Present: atraumatic, normocephalic Eye exam: Present: normal appearance, PERRL ENT exam: Present: normal exam Neck exam: Present: normal inspection. Absent: tenderness, meningismus Respiratory exam: Present: normal lung sounds bilaterally. Absent: respiratory distress, wheezes Cardiovascular Exam: Present: regular rate, normal rhythm GI/Abdominal exam: Present: soft. Absent: distended, tenderness, guarding Neurological exam: Present: alert, oriented X3 Course Vital Signs 01/27/23 15:58 Temperature 98.4 F Pulse Rate 83 Respiratory 18 Rate Blood Pressure 117/55 O2 Sat by Pulse 98 Oximetry Medical Decision Making - Medical Decision Making Was pt. sent in by a medical professional or institution ([facility], [facility], urgent care, hospital, or [facility]...) When possible be specific @ -No Did you speak to anyone other than the patient for history (EMS, parent, family, police, friend...)? What history was obtained from this source @ -No Did you review nursing and triage notes (agree or disagree)? Why? @ -I reviewed and agree with nursing and triage notes Were old charts reviewed (outside hosp., previous admission, EMS record, old EKG, old radiological studies, urgent care reports/EKG's, [facility] records)? Report findings @ -No old charts were reviewed Differential Diagnosis (chest pain, altered mental status, abdominal pain women, abdominal pain men, vaginal bleeding, weakness, fever, dyspnea, syncope, hea dache, dizziness, GI bleed, back pain, seizure, CVA, palpatations, mental health, musculoskeletal)? @ -Chronic anemia, GI bleed, hematuria EKG interpreted by me (3pts min.). @ -[Sinus rhythm rate of 77, VT interval 140, QRS duration 109, QTC [address] segment elevation X-rays interpreted by me (1pt min.). @ -None done CT interpreted by me (1pt min.). @ -None done U/S interpreted by me (1pt. min.). @ -None done What testing was considered but not performed or refused? (CT, X-rays, U/S, labs)? Why? @ -None What meds were considered but not given or refused? Why? @ -None Did you discuss the management of the patient with other professionals (professionals i.e. , PA, GOLD ASSAYER, lab, RT, psych nurse, oncology social work, cupola melter helper, teacher, admitting officer, case operator)? Give summary @ -No Was smoking cessation discussed for >3mins.? @ -No Was critical care preformed (if so, how long)? @ -No Were there social determinants of health that impacted care today? How? (Homelessness, low income, unemployed, alcoholism, drug addiction, transportation, low edu. Level, literacy, decrease access to med. care, [facility], rehab)? @ -No Was there de-escalation of care discussed even if they declined (Discuss DNR or withdrawal of care, Hospice)? DNR status @ -No What co-morbidities impacted this encounter? (DM, HTN, Smoking, COPD, CAD, Cancer, CVA, ARF, Chemo, Hep., AIDS, mental health diagnosis, sleep apnea, morbid obesity)? @ -[Liver cirrhosis, chronic anemia Was patient admitted / discharged? Hospital course, mention meds given and route, prescriptions, significant lab abnormalities, going to OR and other pertinent info. @ Hemoglobin is repeated. He has hemoglobin 7.3. This does appear to be baseline for this patient in recent history. He feels fine and has no complaints. No rectal bleeding. I did inform the patient of strict return parameters and the need for repeat laboratory testing with his primary care provider to ensure stability of the hemoglobin. If he should develop melena or rectal bleeding or any new symptoms he should return to the emergency department. Undiagnosed new problem with uncertain prognosis? @ -No Drug Therapy requiring intensive monitoring for toxicity (Heparin, Nitro, Insulin, Cardizem)? @ -No Were any procedures done? @ -No Diagnosis/symptom? @ -Anemia Acute, or Chronic, or Acute on Chronic? @ Anemia Uncomplicated (without systemic symptoms) or Complicated (systemic symptoms)? @ -default Side effects of treatment? @ -No Exacerbation, Progression, or Severe Exacerbation? @ -No Poses a threat to life or bodily function? How? (Chest pain, USA, NH, pneumonia, PE, COPD, DKA, ARF, appy, cholecystitis, CVA, Diverticulitis, Homicidal, Suicidal, threat to staff... and all critical care pts) @ -Low-risk at this time - Lab Data Result diagrams: 01/27/23 16:07 01/27/23 16:07 Lab Results 01/27/23 01/27/23 01/27/23 Range/Units 16:07 16:07 16:07 WBC 5.2 (3.8-10.6) k/uL RBC 2.42 L (4.30-5.90) m/uL Hgb 7.3 L (13.0-17.5) gm/dL Hct 23.3 L (39.0-53.0) % MCV 96.2 (80.0-100.0) fL MCH 30.2 (25.0-35.0) pg MCHC 31.4 (31.0-37.0) g/dL RDW 13.9 (11.5-15.5) % Plt Count 194 (150-450) k/uL MPV 7.2 Neutrophils % 65 % Lymphocytes % 22 % Monocytes % 8 % Eosinophils % 3 % Basophils % 0 % Neutrophils # 3.4 (1.3-7.7) k/uL Lymphocytes # 1.1 (1.0-4.8) k/uL Monocytes # 0.4 (0-1.0) k/uL Eosinophils # 0.1 (0-0.7) k/uL Basophils # 0.0 (0-0.2) k/uL Hypochromasia Marked Poikilocytosis Slight Sodium 136 L (137-145) mmol/L Potassium 4.0 (3.5-5.1) mmol/L Chloride 105 (98-107) mmol/L Carbon Dioxide 20 L (22-30) mmol/L Anion Gap 11 mmol/L BUN 15 (9-20) mg/dL Creatinine 0.78 (0.66-1.25) mg/dL Est GFR (CKD-EPI)AfAm >90 (>60 ml/min/1.73 sqM) Est GFR (CKD-EPI)NonAf >90 (>60 ml/min/1.73 sqM) Glucose 123 H (74-99) mg/dL Calcium 8.7 (8.4-10.2) mg/dL Total Bilirubin 0.9 (0.2-1.3) mg/dL AST 35 (17-59) U/L ALT 21 (4-49) U/L Alkaline Phosphatase 142 H (38-126) U/L Troponin I <0.012 (0.000-0.034) ng/mL Total Protein 7.9 (6.3-8.2) g/dL Albumin 3.1 L (3.5-5.0) g/dL Disposition Clinical Impression: Anemia Disposition: HOME SELF-CARE Condition: Fair Instructions (If sedation given, give patient instructions): Anemia (ED) Is patient prescribed a controlled substance at d/c from ED?: No Referrals: Parmjit Fernandez MD [Primary Care Provider] - 1-2 days Time of Disposition: 18:21
[2023-01-27 18:56] VITALS: BP 136/70; PULSE 82
== END 2023-01-27 18:37 | disposition home or self-care (01) ==
LOC: EC 15:41
DX: D64.9 Anemia, unspecified (principal); I10 Essential (primary) hypertension; K21.9 Gastro-esophageal reflux disease without esophagitis; F32.A Depression, unspecified; F41.9 Anxiety disorder, unspecified; Z79.899 Other long term (current) drug therapy; Z88.0 Allergy status to penicillin
CPT/HCPCS: 36415; 80053; 84484; 85025; 93005; 99284

== ENCOUNTER 2023-03-02 06:22 | Day surgery (SDC) | payer BC ==
[~2023-03-02 06:22] MED LIST changes: -DEXAMETHASONE SOD PHOSPHATE 10 MG/ML 1 ML VIAL IV ONE; -HYDROmorphone 0.5 MG/0.5 ML SYRINGE IVP PRN; +LIDOCAINE 1% (10MG/ML) FOR IV START INTRADERMA PRN; -LIDOCAINE 1% 20 ML VIAL (10MG/ML) FOR IV START INTRADERMA PRN; -ONDANSETRON 4 MG/2 ML VIAL IVP ONE
[2023-03-02] MEDS ORDERED: PROPOFOL 10 MG/ML 20 ML VIAL IV ONE (06:59)
[2023-03-02] MEDS ORDERED: LIDOCAINE 1% INJ 10MG/ML (20 ML MDV) ONE (06:59)
[2023-03-02 07:17] VITALS: TEMP 98.5
[2023-03-02 08:02] LABS: Anisocytosis Slight; Basophils % (A) 1 %; Eosinophils # (A) 0.2 k/uL (0-0.7); Eosinophils % (A) 6 %; HCT 27.2 % (39.0-53.0); Hypochromasia Marked; Lymphocytes # (A) 0.8 k/uL (1.0-4.8); Lymphocytes % (A) 24 %; MCH 28.3 pg (25.0-35.0); MCHC 31.3 g/dL (31.0-37.0); MCV 90.4 fL (80.0-100.0); Mean Platelet Volume 7.9; Monocytes # (A) 0.3 k/uL (0-1.0); Monocytes % (A) 8 %; Neutrophils % (A) 59 %; Platelet Count 126 k/uL (150-450); Poikilocytosis Marked; RBC 3.01 m/uL (4.30-5.90); RDW 16.1 % (11.5-15.5); Reticulocyte % 2.1 % (0.5-2.0); WBC 3.5 k/uL (3.8-10.6)
[2023-03-02 08:08] VITALS: BP 124/62; PULSE 65; RESP 20
[2023-03-02 08:12] LABS: HGB 8.5 gm/dL (13.0-17.5)
[2023-03-02 08:29] LABS: Rouleaux Present
--- NOTE | 2023-03-02 08:59 | OP ---
OPERATIVE REPORT DATE OF SERVICE : 03/02/2023 PREOPERATIVE DIAGNOSIS: Pancytopenia. POSTOPERATIVE DIAGNOSIS: Pancytopenia. PROCEDURE PERFORMED: Bone marrow aspirate and biopsy. Site, right iliac crest. ANESTHESIA: Local with IV systemic sedation. DESCRIPTION OF PROCEDURE: Utilizing sterile technique, the skin overlying the right iliac crest was prepared with Betadine and alcohol. After adequate sterile draping, local anesthesia with 1% lidocaine and systemic sedation size, 11 4 inch Jamshidi needle was utilized to access the periosteum with ease. A total of 16 mL of aspirate and 5 mm bone core biopsies were obtained. The patient tolerated the procedure very well. There were no immediate procedure related complications. TOTAL BLOOD LOSS: Less than 1 mL. RESULTS: Pending. MMODL / IJN: [id number] /
== END 2023-03-02 08:37 | disposition home or self-care (01) ==
LOC: OR 06:22
PROVIDERS: ATTEND Internal Medicine Hematology & Oncology
DX: D61.818 Other pancytopenia (principal)
CPT/HCPCS: 85025; 85045; 38222; J2001; J2704

== ENCOUNTER 2023-06-14 17:42 | Inpatient (IN) | payer BC ==
[2023-06-14] MEDS: HYDROmorphone 0.5 MG/0.5 ML SYRINGE IVP STA ×3 (18:45→20:38)
--- NOTE | 2023-06-14 18:46 | ED ---
General Adult HPI - General Chief complaint: Fall Stated complaint: Fall Time Seen by Provider: 06/14/23 18:24 Source: patient, RN notes reviewed, old records reviewed Mode of arrival: EMS Limitations: no limitations - History of Present Illness Initial comments: 58-year-old male presenting status post fall with severe right hip pain. Patient brought in by paramedics. He had fallen onto his right hip and buttocks. He developed severe pain in the right hip and proximal thigh. Denies head or neck trauma. Denies anticoagulation. Denies chest or abdominal pain. - Related Data Home Medications Medication Instructions Recorded Confirmed Escitalopram [Lexapro] 20 mg PO DAILY 02/22/23 03/31/23 Folic Acid 1 mg PO DAILY 02/22/23 03/31/23 Magnesium Oxide [Mag-Ox] 500 mg PO DAILY 02/22/23 03/31/23 Multivit,Calc,Min/FA/K1/Lycop 1 each PO DAILY 02/22/23 03/31/23 [One-A-Day Men's Complete Tab] Pantoprazole Sodium [Protonix] 40 mg PO DAILY 02/22/23 03/31/23 Propranolol [Inderal] 10 mg PO TID 02/22/23 03/31/23 Spironolactone 50 mg PO DAILY 02/22/23 03/31/23 Thiamine [Vitamin B-1] 100 mg PO DAILY 02/22/23 03/31/23 Tolterodine ER [Detrol LA] 4 mg PO DAILY 02/22/23 03/31/23 Vancomycin 250 mg IN DAILY 03/31/23 03/31/23 cefTRIAXone [Rocephin] 1 gm IVPB Q24H 03/31/23 03/31/23 Allergies Allergy/AdvReac Type Severity Reaction Status Date / Time Penicillins Allergy Rash/Hives Verified 03/31/23 07:30 Review of Systems ROS Statement: Those systems with pertinent positive or pertinent negative responses have been documented in the HPI. ROS Other: All systems not noted in ROS Statement are negative. Past Medical History Past Medical History: GERD/Reflux, Hypertension, Liver Disease Additional Past Medical History / Comment(s): esophageal varices and cirrhosis of liver, supposed to have ankle surg. tomorrow in [place],. PANTOCYTOPENIA- LAST HBG 5.6-HAD 2 UNITS OF PRBC History of Any Multi-Drug Resistant Organisms: None Reported Past Surgical History: Joint Replacement, Orthopedic Surgery, Tonsillectomy Additional Past Surgical History / Comment(s): lt total hip. ORIF RT ANKLE. COLONOSCOPY/EGD. Right ankle hardware removed - February 27, 2024 Past Anesthesia/Blood Transfusion Reactions: No Reported Reaction Past Psychological History: No Psychological Hx Reported, Anxiety, Depression Smoking Status: Light tobacco smoker Past Alcohol Use History: Daily Past Drug Use History: None Reported - Past Family History Mother Family Medical History: Cancer Additional Family Medical History / Comment(s): lung cancer Father Family Medical History: Myocardial Infarction ([place]) General Exam Limitations: no limitations General appearance: alert, in no apparent distress Head exam: Present: atraumatic, normocephalic Eye exam: Present: normal appearance, PERRL ENT exam: Present: normal exam Neck exam: Present: normal inspection. Absent: tenderness, meningismus Respiratory exam: Present: normal lung sounds bilaterally. Absent: respiratory distress, wheezes Cardiovascular Exam: Present: regular rate, normal rhythm GI/Abdominal exam: Present: soft. Absent: distended, tenderness, guarding Extremities exam: Absent: full ROM (Externally rotated right lower extremity with severe pain with movement) Neurological exam: Present: alert, oriented X3, CN II-XII intact. Absent: motor sensory deficit Psychiatric exam: Present: normal affect, normal mood Skin exam: Present: warm, dry Course Vital Signs 06/14/23 06/14/23 06/14/23 17:56 19:54 20:40 Temperature 97.7 F Pulse Rate 83 84 84 Respiratory 20 17 16 Rate Blood Pressure 118/63 141/79 131/73 O2 Sat by Pulse 98 97 95 Oximetry Medical Decision Making - Medical Decision Making Was pt. sent in by a medical professional or institution (, PA, HEALTHCARE ADMINISTRATIVE ASSISTANT, urgent care, hospital, or correction...) When possible be specific @ -[No] Did you speak to anyone other than the patient for history (EMS, parent, family, police, friend...)? What history was obtained from this source @ -[No] Did you review nursing and triage notes (agree or disagree)? Why? @ -[I reviewed and agree with nursing and triage notes] Were old charts reviewed (outside hosp., previous admission, EMS record, old EKG, old radiological studies, urgent care reports/EKG's, correction records)? Report findings @ -[No old charts were reviewed] Differential Diagnosis (chest pain, altered mental status, abdominal pain women, abdominal pain men, vaginal bleeding, weakness, fever, dyspnea, syncope, headache, dizziness, GI bleed, back pain, seizure, CVA, palpatations, mental health, musculoskeletal)? @ -Differential Musculoskeletal Muscular strain, contusion, ligament sprain, fracture, arthritis, septic ar thritis, bursitis, cellulitis, muscle spasm, nerve compression, DVT, arterial occlusion, herpes zoster, electrolyte abnormality, tumor.... This is not meant to be in all inclusive list EKG interpreted by me (3pts min.). @ -[As above] X-rays interpreted by me (1pt min.). @ -[X-ray of the rt hip and pelvis negative for displaced fracture, concern for subtle pubic rami fracture on x-ray. CT interpreted by me (1pt min.). @ -[CT of the pelvis showing superior and inferior pubic rami fracture on the right.] U/S interpreted by me (1pt. min.). @ -[None done] What testing was considered but not performed or refused? (CT, X-rays, U/S, labs)? Why? @ -[None] What meds were considered but not given or refused? Why? @ -[None] Did you discuss the management of the patient with other professionals ( professionals i.e. , PA, HEALTHCARE ADMINISTRATIVE ASSISTANT, lab, RT, psych nurse, social work instructor, instrumentation chemist, teacher, housing officer, pillowcase cutter)? Give summary @ -[No] Was smoking cessation discussed for >3mins.? @ -[No] Was critical care preformed (if so, how long)? @ -[No] Were there social determinants of health that impacted care today? How? (Homelessness, low income, unemployed, alcoholism, drug addiction, transportati on, low edu. Level, literacy, decrease access to med. care, correction, rehab)? @ -[No] Was there de-escalation of care discussed even if they declined (Discuss DNR or withdrawal of care, Hospice)? DNR status @ -[No] What co-morbidities impacted this encounter? (DM, HTN, Smoking, COPD, CAD, Cancer, CVA, ARF, Chemo, Hep., AIDS, mental health diagnosis, sleep apnea, morbid obesity)? @ -[None] Was patient admitted / discharged? Hospital course, mention meds given and route, prescriptions, significant lab abnormalities, going to OR and other pertinent info. @ -[58-year-old male with fall, right hip pain. CT confirming minimally displaced superior and inferior pubic rami fracture. Patient admitted to orthopedics with medicine on consult. Patient may require rehabilitation for this fracture. Undiagnosed new problem with uncertain prognosis? @ -[No] Drug Therapy requiring intensive monitoring for toxicity (Heparin, Nitro, Insulin, Cardizem)? @ -[No] Were any procedures done? @ -[No] Diagnosis/symptom? @Pubic rami fracture Acute, or Chronic, or Acute on Chronic? @ -Acute Uncomplicated (without systemic symptoms) or Complicated (systemic symptoms)? @ -[default] Side effects of treatment? @ -[No] Exacerbation, Progression, or Severe Exacerbation? @ -[No] Poses a threat to life or bodily function? How? (Chest pain, USA, [place], pneumonia, PE, COPD, DKA, ARF, appy, cholecystitis, CVA, Diverticulitis, Homicidal, Suicidal, threat to staff... and all critical care pts) @ -[Low risk - Lab Data Result diagrams: 06/14/23 18:35 06/14/23 18:35 Lab Results 06/14/23 06/14/23 06/14/23 Range/Units 18:35 18:35 18:35 WBC 6.9 (3.8-10.6) k/uL RBC 2.75 L (4.30-5.90) m/uL Hgb 9.1 L (13.0-17.5) gm/dL Hct 27.7 L (39.0-53.0) % MCV 100.5 H (80.0-100.0) fL MCH 33.1 (25.0-35.0) pg MCHC 33.0 (31.0-37.0) g/dL RDW 16.3 H (11.5-15.5) % Plt Count 119 L (150-450) k/uL MPV 7.5 Neutrophils % 73 % Lymphocytes % 17 % Monocytes % 5 % Eosinophils % 2 % Basophils % 0 % Neutrophils # 5.1 (1.3-7.7) k/uL Lymphocytes # 1.2 (1.0-4.8) k/uL Monocytes # 0.3 (0-1.0) k/uL Eosinophils # 0.2 (0-0.7) k/uL Basophils # 0.0 (0-0.2) k/uL Hypochromasia Moderate Poikilocytosis Slight Anisocytosis Slight Macrocytosis Slight PT 12.6 H (10.0-12.5) sec INR 1.2 H (<1.2) APTT 25.9 (22.0-30.0) sec Sodium 137 (137-145) mmol/L Potassium 4.1 (3.5-5.1) mmol/L Chloride 108 H (98-107) mmol/L Carbon Dioxide 22 (22-30) mmol/L Anion Gap 7 mmol/L BUN 19 (9-20) mg/dL Creatinine 0.86 (0.66-1.25) mg/dL Est GFR (CKD-EPI)AfAm >90 (>60 ml/min/1.73 sqM) Est GFR (CKD-EPI)NonAf >90 (>60 ml/min/1.73 sqM) Glucose 115 H (74-99) mg/dL Calcium 8.5 (8.4-10.2) mg/dL Total Bilirubin 1.1 (0.2-1.3) mg/dL AST 60 H (17-59) U/L ALT 25 (4-49) U/L Alkaline Phosphatase 184 H (38-126) U/L Total Protein 6.7 (6.3-8.2) g/dL Albumin 3.1 L (3.5-5.0) g/dL Disposition Clinical Impression: Pubic ramus fracture Disposition: ADMITTED IP TO THIS HOSP Condition: Stable Is patient prescribed a controlled substance at d/c from ED?: No Referrals: Nonstaff,Physician [Primary Care Provider] - 1-2 days Time of Disposition: 21:27
[2023-06-14 19:01] LABS: Anisocytosis Slight; Basophils % (A) 0 %; Eosinophils # (A) 0.2 k/uL (0-0.7); Eosinophils % (A) 2 %; HCT 27.7 % (39.0-53.0); HGB 9.1 gm/dL (13.0-17.5); Hypochromasia Moderate; Lymphocytes # (A) 1.2 k/uL (1.0-4.8); Lymphocytes % (A) 17 %; MCH 33.1 pg (25.0-35.0); MCV 100.5 fL (80.0-100.0); Macrocytosis Slight; Mean Platelet Volume 7.5; Monocytes # (A) 0.3 k/uL (0-1.0); Monocytes % (A) 5 %; Neutrophils # (A) 5.1 k/uL (1.3-7.7); Neutrophils % (A) 73 %; Platelet Count 119 k/uL (150-450); Poikilocytosis Slight; RBC 2.75 m/uL (4.30-5.90); RDW 16.3 % (11.5-15.5); WBC 6.9 k/uL (3.8-10.6)
[2023-06-14 19:09] LABS: INR 1.2 (<1.2); Partial Thromboplastin Time 25.9 sec (22.0-30.0); Prothrombin Time 12.6 sec (10.0-12.5)
[2023-06-14 19:12] LABS: ALT 25 U/L (4-49); AST 60 U/L (17-59); African American GFR (CKD) >90 (>60 ml/min/1.73 sqM); Albumin 3.1 g/dL (3.5-5.0); Alkaline Phosphatase 184 U/L (38-126); Anion Gap 7 mmol/L; Blood Urea Nitrogen 19 mg/dL (9-20); Calcium 8.5 mg/dL (8.4-10.2); Carbon Dioxide 22 mmol/L (22-30); Chloride 108 mmol/L (98-107); Glucose 115 mg/dL (74-99); Non-African American GFR(CKD) >90 (>60 ml/min/1.73 sqM); Potassium 4.1 mmol/L (3.5-5.1); Sodium 137 mmol/L (137-145); Total Bilirubin 1.1 mg/dL (0.2-1.3); Total Protein 6.7 g/dL (6.3-8.2)
--- NOTE | 2023-06-14 19:23 | XR ---
EXAMINATION TYPE: XR Hip RT and AP Pelvis DATE OF EXAM: 06/14/2023 COMPARISON: NONE HISTORY: Trauma from fall TECHNIQUE: A single AP view of the pelvis is obtained. Two views of the right hip are obtained. FINDINGS: There is no acute fracture/dislocation evident in the pelvis. The hip and sacroiliac join ts appear symmetric and unremarkable. The overlying soft tissue appears unremarkable. Two views of right hip show no acute fracture or dislocation. No focal lytic or sclerotic lesion see n in the proximal right femur. The overlying soft tissue is unremarkable. IMPRESSION: There is no acute fracture or dislocation in the pelvis or right hip. There is a left hi p prosthesis.
--- NOTE | 2023-06-14 19:25 | XR ---
Right femur. HISTORY: Pain following trauma COMPARISON: None TECHNIQUE: 4 views of right femur were obtained. FINDINGS: There is no fracture, dislocation or focal intraosseous body. There is no cortical disruption or oskar osteal reaction. The right hip joint and knee are grossly normal. There is no abnormal soft tissue ca lcification. IMPRESSION: No significant abnormality seen.
[2023-06-14] MEDS: HYDROmorphone 1 MG/ML 1 ML SYRINGE IVP STA (20:13)
--- NOTE | 2023-06-14 20:40 | CT ---
EXAMINATION TYPE: CT pelvis wo con DATE OF EXAM: 06/14/2023 COMPARISON: None HISTORY: fell/rt hip pain CT DLP: 628.6 mGycm Automated exposure control for dose reduction was used. FINDINGS: There is a minimally displaced fracture of the right inferior pubic ramus. There is a minimally displ aced fracture of the right superior pubic ramus. The fracture extends into the right ischium but does not appear to be intra-articular. The right hip is normal without fracture or dislocation. There is no diastasis of the pubic symphysis or SI joints. The sacrum is intact. IMPRESSION: MULTIPLE PELVIC FRACTURES ON THE RIGHT INVOLVING THE RIGHT PUBIC BONE AND RIGHT ISCHIUM DESCRIBED ABOVE.
[2023-06-14] MEDS ORDERED: NALOXONE 0.4 MG/ML 1 ML VIAL IV PRN (21:23)
[2023-06-14] MEDS ORDERED: IBUPROFEN 400 MG TAB PO PRN (21:23)
[2023-06-14] MEDS: HYDROmorphone 1 MG/ML 1 ML SYRINGE IVP PRN (22:34)
[2023-06-15] MEDS: HYDROmorphone 0.5 MG/0.5 ML SYRINGE IVP PRN (01:41)
--- NOTE | 2023-06-15 08:45 | P.HPOR ---
History of Present Illness H&P Date: 06/15/23 Chief Complaint: Right pelvic pain status post fall Patient is a very pleasant 58-year-old male who is seen and examined at the bedside for further evaluation. He is status post fall yesterday, 06/14/2023. He states he was outside on his porch when he got up to go inside and he lost his balance falling backwards into the mulch. He states the fall was not that h lor[place] but he has been unable to mobilize since that time. He was brought to [facility] for further evaluation. After further imaging he was found to have right superior and inferior pubic rami fractures. He continues to have difficulty with mobilization. He was admitted to our service. He denies any other injuries at the time of the fall. He has a history of a left total hip arthroplasty. He has not had any difficulty with his left hip. He has a history of ankle fracture on the right requiring surgical intervention with stabilization performed by Dr. Cano. He states his hardware was recently removed in February 2023. He is recovering postoperatively without difficulty. He does admit to lymphedema in his right lower extremity. He does not have lymphedema in his left lower extremity. He states his right lower extremity chronically is externally rotated. He is currently admitted with plans for placement to a rehabilitation facility given his difficulty with his mobilization. Medicine has been consulted for his medical management during his admission to the hospital. His other medical diagnoses include liver disease with history of cirrhosis and hypertension. Past Medical History Past Medical History: GERD/Reflux, Hypertension, Liver Disease Additional Past Medical History / Comment(s): esophageal varices and cirrhosis of liver, supposed to have ankle surg. tomorrow in [place],. PANTOCYTOPENIA- LAST HBG 5.6-HAD 2 UNITS OF PRBC History of Any Multi-Drug Resistant Organisms: None Reported Past Surgical History: Joint Replacement, Orthopedic Surgery, Tonsillectomy Additional Past Surgical History / Comment(s): lt total hip. ORIF RT ANKLE. COLONOSCOPY/EGD. Right ankle hardware removed - February 27, 2024 Past Anesthesia/Blood Transfusion Reactions: No Reported Reaction Past Psychological History: No Psychological Hx Reported, Anxiety, Depression Smoking Status: Light tobacco smoker Past Alcohol Use History: Daily Past Drug Use History: None Reported - Past Family History Mother Family Medical History: Cancer Additional Family Medical History / Comment(s): lung cancer Father Family Medical History: Myocardial Infarction ([place]) Medications and Allergies Home Medications Medication Instructions Recorded Confirmed Type Escitalopram [Lexapro] 20 mg PO DAILY 02/22/23 06/15/23 History Folic Acid 1 mg PO DAILY 02/22/23 06/15/23 History Pantoprazole Sodium [Protonix] 40 mg PO DAILY 02/22/23 06/15/23 History Spironolactone 50 mg PO DAILY 02/22/23 06/15/23 History Thiamine [Vitamin B-1] 100 mg PO DAILY 02/22/23 06/15/23 History Tolterodine ER [Detrol LA] 4 mg PO HS 02/22/23 06/15/23 History Doxycycline Hyclate 100 mg PO BID 06/15/23 06/15/23 History Allergies Allergy/AdvReac Type Severity Reaction Status Date / Time Penicillins Allergy Rash/Hives Verified 06/15/23 07:39 Physical Examination Osteopathic Statement: *. No significant issues noted on an osteopathic structural exam other than those noted in the History and Physical/Consult. Physical exam: Patient is awake, alert, and oriented 3 Vital signs stable Good chest excursion with deep inspiration and expiration Dorsiflexion, plantarflexion, and extensor hallucis longus positive sustained bilaterally Evidence of well-healed incision over the right ankle Evidence of some generalized swelling over the right ankle Evidence of some right lower extremity lymphedema Significant increased pain with internal and external rotation of the right hip No signs or symptoms of DVT; no calf pain Neurovascularly intact Results Pertinent studies: CT of the pelvis taken on 06/14/2023: Evidence of minimally displaced right inferior and inferior pubic rami fractures with fracture extending to the right ischium but does not appear to be intra-articular; I do not see evidence of right hip fracture X-rays of the right hip, pelvis, and femur taken on 06/14/2023: Difficulty to visualized right superior pubic rami fracture; there may be evidence of right inferior pubic rami fracture with minimal displacement; left total hip arthroplasty with retained hardware; osteoarthritis right knee - Labs Labs: Abnormal Lab Results - Last 24 Hours (Table) 06/14/23 06/14/23 06/14/23 Range/Units 18:35 18:35 18:35 RBC 2.75 L (4.30-5.90) m/uL Hgb 9.1 L (13.0-17.5) gm/dL Hct 27.7 L (39.0-53.0) % MCV 100.5 H (80.0-100.0) fL RDW 16.3 H (11.5-15.5) % Plt Count 119 L (150-450) k/uL PT 12.6 H (10.0-12.5) sec INR 1.2 H (<1.2) Chloride 108 H (98-107) mmol/L Glucose 115 H (74-99) mg/dL AST 60 H (17-59) U/L Alkaline Phosphatase 184 H (38-126) U/L Albumin 3.1 L (3.5-5.0) g/dL H & H 06/14/23 Range/Units 18:35 Hgb 9.1 L (13.0-17.5) gm/dL Hct 27.7 L (39.0-53.0) % Coagulation 06/14/23 Range/Units 18:35 INR 1.2 H (<1.2) Result Diagrams: 06/14/23 18:35 06/14/23 18:35 Assessment and Plan Assessment: Assessment: Acute traumatic right pelvic pain status post fall Minimally displaced right superior and inferior pubic rami fractures Inability to ambulate due to pain History left total hip arthroplasty History liver disease with cirrhosis Right lower extremity lymphedema History right ankle fracture requiring surgical intervention with later removal of hardware Right knee osteoarthritis Hypertension (1) Status post fall Current Visit: Yes Status: Acute Code(s): Z91.81 - HISTORY OF FALLING SNOMED Code(s): 605254938 (2) Pelvic pain Current Visit: Yes Status: Acute Code(s): R10.2 - PELVIC AND PERINEAL PAIN SNOMED Code(s): 92012373 (3) Difficulty in walking Current Visit: Yes Status: Acute Code(s): R26.2 - DIFFICULTY IN WALKING, NOT ELSEWHERE CLASSIFIED SNOMED Code(s): 205352027 (4) History of total left hip replacement Current Visit: Yes Status: Acute Code(s): Z96.642 - PRESENCE OF LEFT ARTIFICIAL HIP JOINT SNOMED Code(s): 200109658934 (5) Osteoarthritis of right knee Current Visit: Yes Status: Acute Code(s): M17.11 - UNILATERAL PRIMARY OSTEOARTHRITIS, RIGHT KNEE SNOMED Code(s): 992617907144730 (6) Cirrhosis Current Visit: Yes Status: Acute Code(s): K74.60 - UNSPECIFIED CIRRHOSIS OF LIVER SNOMED Code(s): 39505817 (7) Hypertension Current Visit: Yes Status: Acute Code(s): I10 - ESSENTIAL (PRIMARY) HYPERTENSION SNOMED Code(s): 68708848 (8) Obesity (BMI 30-39.9) Current Visit: Yes Status: Acute Code(s): E66.9 - OBESITY, UNSPECIFIED SNOMED Code(s): 925032065 (9) Lymphedema Current Visit: Yes Status: Acute Code(s): I89.0 - LYMPHEDEMA, NOT ELSEWHERE CLASSIFIED SNOMED Code(s): 698169282 (10) History of ankle surgery Current Visit: Yes Status: Acute Code(s): Z98.890 - OTHER SPECIFIED POSTPRO CEDURAL STATES SNOMED Code(s): 32965846943374372 (11) Pubic ramus fracture Current Visit: Yes Status: Acute Code(s): S32.599A - OTH FRACTURE OF UNSP PUBIS, INIT ENCNTR FOR CLOSED FRACTURE SNOMED Code(s): 9850353550 Plan: Plan: 1. Patient does have evidence of acute traumatic right minimally displaced superior and inferior pubic rami fracture status post fall on 06/14/2023. He has had difficulty with his mobilization due to his pain. He is currently admitted to our service. Currently given his significant difficulty with mobilization and his known fractures, we are planning for evaluation from case management to set up discharge planning to a rehabilitation facility prior to the patient returning home. We did discuss patient may weight-bear as tolerated in the right lower extremity. He may mobilize with physical therapy. He may utilize a walker to aid in ambulation. Currently, we are not planning for any acute surgical intervention in regards to his right superior and inferior pubic rami fractures. We would plan to have him exhaust all conservative treatment options. 2. Patient will be seen and evaluated by medicine for medical management during his admission 3. Will plan for consultation with case management to set up discharge planning for a rehabilitation facility 4. Will consult with physical therapy to increase patient's mobilization I was able to see the patient while he is in the emergency room. He is being admitted. I have reviewed the imaging as well as the dictation above. The patient is sustained a acute traumatic fracture in his right pelvis involving the superior and inferior pubic rami. The fracture does not involve the joint or the femur. He is having significant difficulty with any mobilization due to his pain around his right hip and right groin due to his pelvic injury. The fracture appears to be stable and will not require surgical intervention. It is okay for him to try to mobilize his right hip and encouraged him to do different exercises to increase his mobility around his right hip. It is okay for him to start to mobilize and get up with therapy to try to work on transfers and potential ambulation. When he is able is okay for him to weight-bear as tolerated on the right lower extremity. He is currently working on issues regarding subacute injury in his right ankle and can continue with this. He is not able to mobilize well on his own able to take a couple of days before he is safe to increase his mobility and to work on transfer safely. He will need placement post hospitalization and we will continue to work with him toward that. He should continue his medical management. Time with Patient: Greater than 30 (Including obtaining history, physical examination, reviewing of imaging, and dictation.)
--- NOTE | 2023-06-15 13:24 | P.CONS ---
History of Present Illness - Reason for Consult Consult date: 06/15/23 Medical management - History of Present Illness History of present illness; patient is a 58-year-old gentleman with past medical history significant for hypertension who presented to the ER after a fall. Patient stated he was all right yesterday when while standing in the porch he tried to turn and lost his balance falling backwards into the mulch. Following that he could not able to move and had severe pain in his pelvic area. There was no complaint lightheaded or dizziness. There was no complaint of loss of consciousness. Denies any fever or chills. There is no complaint chest pain or shortness of breath. Because of the fall, patient was brought to the ER Initial lab work done in the ER showed WBC 6.9, hemoglobin 9.1, platelet count 119, sodium 137, potassium 4.1, BUN 19, creatinine 0.86, glucose 115 AST 60, ALT 25, alk phos 184, albumin 3.1 X-ray hip and pelvis done showed no acute fracture or dislocation in the pelvis or right hip there is a left hip prosthesis X-ray right femur done showed no significant abnormality CT pelvis done showed multiple pelvic fractures on the right involving the right pubic bone and right ischium Patient admitted to orthopedic service REVIEW OF SYSTEMS: CONSTITUTIONAL: No fever, no malaise, no fatigue. HEENT: No recent visual problems or hearing problems. Denied any sore throat. CARDIOVASCULAR: No chest pain, orthopnea, PND, no palpitations, no syncope. PULMONARY: No shortness of breath, no cough, no hemoptysis. GASTROINTESTINAL: No diarrhea, no nausea, no vomiting, no abdominal pain. NEUROLOGICAL: No headaches, no weakness, no numbness. HEMATOLOGICAL: Denies any bleeding or petechiae. GENITOURINARY: Denies any burning micturition, frequency, or urgency. MUSCULOSKELETAL/RHEUMATOLOGICAL: Complaining of right hip pain ENDOCRINE: Denies any polyuria or polydipsia. The rest of the 14-point review of systems is negative. PHYSICAL EXAMINATION: GENERAL: The patient is alert and oriented x3, not in any acute distress. Well developed, well nourished. HEENT: Pupils are round and equally reacting to light. EOMI. No scleral icterus. No conjunctival pallor. Normocephalic, atraumatic. No pharyngeal erythema. No thyromegaly. CARDIOVASCULAR: S1 and S2 present. No murmurs, rubs, or gallops. PULMONARY: Chest is clear to auscultation, no wheezing or crackles. ABDOMEN: Soft, nontender, nondistended, normoactive bowel sounds. No palpable organomegaly. MUSCULOSKELETAL: No joint swelling or deformity. Right hip tender EXTREMITIES: No cyanosis, clubbing, or pedal edema. NEUROLOGICAL: Gross neurological examination did not reveal any focal deficits. SKIN: No rashes. Assessment and plan Fall Pelvic fracture involving the right pubis bone and right ischium Hypertension Depression Monitor vital signs monitor CBC Continue pain management per orthopedics Continue DVT prophylaxis per orthopedics Resume home meds PT and OT consulted Orthopedic following Labs and medication were reviewed.. Continue same treatment. Continue with symptomatic treatment. Resume home medication. Monitor labs and vitals. DVT and GI prophylaxis. Further recommendations as per clinical course of the patient Dictation was produced using [employer] dictation software. please excuse any grammatical, word or spelling errors. Past Medical History Past Medical History: GERD/Reflux, Hypertension, Liver Disease Additional Past Medical History / Comment(s): esophageal varices and cirrhosis of liver, supposed to have ankle surg. tomorrow in [place],. PANTOCYTOPENIA- LAST HBG 5.6-HAD 2 UNITS OF PRBC History of Any Multi-Drug Resistant Organisms: None Reported Past Surgical History: Joint Replacement, Orthopedic Surgery, Tonsillectomy Additional Past Surgical History / Comment(s): lt total hip. ORIF RT ANKLE. COLONOSCOPY/EGD. Right ankle hardware removed - February 27, 2024 Past Anesthesia/Blood Transfusion Reactions: No Reported Reaction Past Psychological History: No Psychological Hx Reported, Anxiety, Depression Smoking Status: Light tobacco smoker Past Alcohol Use History: Daily Past Drug Use History: None Reported - Past Family History Mother Family Medical History: Cancer Additional Family Medical History / Comment(s): lung cancer Father Family Medical History: Myocardial Infarction ([place]) Medications and Allergies Home Medications Medication Instructions Recorded Confirmed Type Escitalopram [Lexapro] 20 mg PO DAILY 02/22/23 06/15/23 History Folic Acid 1 mg PO DAILY 02/22/23 06/15/23 History Pantoprazole Sodium [Protonix] 40 mg PO DAILY 02/22/23 06/15/23 History Spironolactone 50 mg PO DAILY 02/22/23 06/15/23 History Thiamine [Vitamin B-1] 100 mg PO DAILY 02/22/23 06/15/23 History Tolterodine ER [Detrol LA] 4 mg PO HS 02/22/23 06/15/23 History Doxycycline Hyclate 100 mg PO BID 06/15/23 06/15/23 History Allergies Allergy/AdvReac Type Severity Reaction Status Date / Time Penicillins Allergy Rash/Hives Verified 06/15/23 07:39 Physical Exam Vitals: Vital Signs Temp Pulse Resp BP Pulse Ox 06/15/23 11:55 68 16 136/69 06/15/23 07:46 70 18 119/70 93 L 06/15/23 06:10 78 17 127/71 96 06/15/23 03:50 97.9 F 79 15 124/73 94 L 06/15/23 01:38 98.4 F 72 16 107/62 94 L 06/14/23 22:35 83 15 138/74 94 L 06/14/23 20:40 84 16 131/73 95 06/14/23 19:54 84 17 141/79 97 06/14/23 17:56 97.7 F 83 20 118/63 98 Intake and Output 06/14/23 06/15/23 06/15/23 22:59 06:59 14:59 Other: Weight 108.862 kg Results CBC & Chem 7: 06/14/23 18:35 06/14/23 18:35 Labs: Abnormal Lab Results - Last 24 Hours (Table) 06/14/23 06/14/23 06/14/23 Range/Units 18:35 18:35 18:35 RBC 2.75 L (4.30-5.90) m/uL Hgb 9.1 L (13.0-17.5) gm/dL Hct 27.7 L (39.0-53.0) % MCV 100.5 H (80.0-100.0) fL RDW 16.3 H (11.5-15.5) % Plt Count 119 L (150-450) k/uL PT 12.6 H (10.0-12.5) sec INR 1.2 H (<1.2) Chloride 108 H (98-107) mmol/L Glucose 115 H (74-99) mg/dL AST 60 H (17-59) U/L Alkaline Phosphatase 184 H (38-126) U/L Albumin 3.1 L (3.5-5.0) g/dL
[2023-06-15] MEDS ORDERED: LORazepam 2 MG/ML INJ IV PRN (20:31)
[2023-06-15] MEDS: OXYBUTYNIN 10 MG TAB.ER.24 PO SCH (21:19)
[2023-06-16] MEDS: PANTOPRAZOLE 40 MG TABLET PO SCH (06:37)
--- NOTE | 2023-06-16 08:32 | P.PN ---
Subjective Progress Note Date: 06/16/23 Principal diagnosis: R superior and inferior pubic rami fractures Right pelvic pain status post fall Patient is a very pleasant 58-year-old male who is seen and examined at the bedside for further evaluation. He is status post fall yesterday, 06/14/2023. He states he was outside on his porch when he got up to go inside and he lost his balance falling backwards into the mulch. He states the fall was not that hard but he has been unable to mobilize since that time. He was brought to [facility] for further evaluation. After further imaging he was found to have right superior and inferior pubic rami fractures. He con tinues to have difficulty with mobilization. He was admitted to our service. He denies any other injuries at the time of the fall. He has a history of a left total hip arthroplasty. He has not had any difficulty with his left hip. He has a history of ankle fracture on the right requiring surgical intervention with stabilization performed by Dr. Cano. He states his hardware was recently removed in February 2023. He is recovering postoperatively without difficulty. He does admit to lymphedema in his right lower extremity. He does not have lymphedema in his left lower extremity. He states his right lower extremity chronically is externally rotated. He is currently admitted with plans for placement to a rehabilitation facility given his difficulty with his mobilization. Medicine has been consulted for his medical management during his admission to the hospital. His other medical diagnoses include liver disease with history of cirrhosis and hypertension. 06/16/23 Pending PT/OT nicolette, Pt reports he has had minor improvements in pain over the last two days, with no pain at rest and worsened by specific movements. Pt has pain with internal and external rotation of the hip, worse with internal rotation. Objective - Vital Signs Vital signs: Vital Signs Temp 98.2 F 06/16/23 07:56 Pulse 72 06/16/23 07:56 Resp 17 06/16/23 07:56 BP 136/68 06/16/23 07:56 Pulse Ox 96 06/16/23 07:56 FiO2 Intake & Output 06/15/23 06/16/23 06/16/23 18:59 06:59 18:59 Output Total 400 400 Balance -400 -400 Weight 108.862 kg Output: Urine 400 400 Other: Voiding Method External Catheter External Catheter - Exam External rotation of Right hip active ROM 3/5 and elicits pain, internal rotation 1/5 and is more painful than external. Pt is still able to move ankle and toes, restricted by prior hx of fracture, surgical repair, and infection. neurovascularly intact. He is resting comfortable in bed and has no new c omplaints, ready to start PT/OT and go to rehab. - Labs CBC & Chem 7: 06/14/23 18:35 06/14/23 18:35 Assessment and Plan Assessment: R superior and Inferior pubic rami fracture (1) Difficulty in walking Current Visit: Yes Status: Acute Code(s): R26.2 - DIFFICULTY IN WALKING, NOT ELSEWHERE CLASSIFIED SNOMED Code(s): 919084225 (2) History of ankle surgery Current Visit: Yes Status: Acute Code(s): Z98.890 - OTHER SPECIFIED POSTPROCEDURAL STATES SNOMED Code(s): 98096800706950430 (3) Pubic ramus fracture Current Visit: Yes Status: Acute Code(s): S32.599A - OTH FRACTURE OF UNSP PUBIS, INIT ENCNTR FOR CLOSED FRACTURE SNOMED Code(s): 4507164951 Plan: Clinical findings were discussed with the patient. Discharge to inpatient rehab when cleared medically. PT/OT eval then rehab facility
[2023-06-16] MEDS: SPIRONOLACTONE 25 MG TAB PO SCH (09:26)
[2023-06-16] MEDS: FOLIC ACID 1 MG TAB PO SCH (09:26)
[2023-06-16] MEDS: ESCITALOPRAM 20 MG TAB PO SCH (09:27)
[2023-06-16] MEDS: THIAMINE 100 MG TAB PO SCH (09:27)
[2023-06-16 10:44] LABS: Basophils % (A) 1 %; Eosinophils # (A) 0.2 k/uL (0-0.7); Eosinophils % (A) 4 %; HCT 27.8 % (39.0-53.0); HGB 8.7 gm/dL (13.0-17.5); Hypochromasia Marked; Lymphocytes # (A) 0.7 k/uL (1.0-4.8); Lymphocytes % (A) 16 %; MCH 31.6 pg (25.0-35.0); MCHC 31.3 g/dL (31.0-37.0); MCV 100.9 fL (80.0-100.0); Macrocytosis Slight; Mean Platelet Volume 7.8; Monocytes # (A) 0.3 k/uL (0-1.0); Monocytes % (A) 8 %; Neutrophils # (A) 2.9 k/uL (1.3-7.7); Neutrophils % (A) 69 %; Poikilocytosis Slight; RBC 2.75 m/uL (4.30-5.90); WBC 4.2 k/uL (3.8-10.6)
[2023-06-16 11:01] LABS: ALT 23 U/L (4-49); AST 50 U/L (17-59); African American GFR (CKD) >90 (>60 ml/min/1.73 sqM); Albumin/Globulin Ratio 0.8; Alkaline Phosphatase 125 U/L (38-126); Anion Gap 6 mmol/L; Blood Urea Nitrogen 19 mg/dL (9-20); Calcium 8.5 mg/dL (8.4-10.2); Carbon Dioxide 24 mmol/L (22-30); Chloride 107 mmol/L (98-107); Globulin 3.7 g/dL; Glucose 126 mg/dL (74-99); Non-African American GFR(CKD) >90 (>60 ml/min/1.73 sqM); Potassium 3.9 mmol/L (3.5-5.1); Sodium 137 mmol/L (137-145); Total Bilirubin 2.1 mg/dL (0.2-1.3); Total Protein 6.7 g/dL (6.3-8.2)
[2023-06-16 11:55] LABS: Platelet Count 87 k/uL (150-450)
--- NOTE | 2023-06-16 12:12 | P.PN ---
Subjective Progress Note Date: 06/16/23 patient is a 58-year-old gentleman with past medical history significant for hypertension who presented to the ER after a fall. Patient stated he was all right yesterday when while standing in the porch he tried to turn and lost his balance falling backwards into the mulch. Following that he could not able to move and had severe pain in his pelvic area. There was no complaint lightheaded or dizziness. There was no complaint of loss of consciousness. Denies any fever or chills. There is no complaint chest pain or shortness of breath. Because of the fall, patient was brought to the ER Initial lab work done in the ER showed WBC 6.9, hemoglobin 9.1, platelet count 119, sodium 137, potassium 4.1, BUN 19, creatinine 0.86, glucose 115 AST 60, ALT 25, alk phos 184, albumin 3.1 X-ray hip and pelvis done showed no acute fracture or dislocation in the pelvis or right hip there is a left hip prosthesis X-ray right femur done showed no significant abnormality CT pelvis done showed multiple pelvic fractures on the right involving the right pubic bone and right ischium Patient admitted to orthopedic service 06/15. Patient seen and examined. States right hip pain has improved. Working with PT and OT REVIEW OF SYSTEMS: CONSTITUTIONAL: No fever, no malaise,. CARDIOVASCULAR: No chest pain, no palpitations, no syncope. PULMONARY: No shortness of breath, no cough, GASTROINTESTINAL: No diarrhea, no abdominal pain. NEUROLOGICAL: No headaches, no weakness, PHYSICAL EXAMINATION: GENERAL: The patient is alert and oriented x3, not in any acute distress. Well developed, well nourished. HEENT: Pupils are round and equally reacting to light. EOMI. No scleral icterus. No conjunctival pallor. Normocephalic, atraumatic. No pharyngeal erythema. No thyromegaly. CARDIOVASCULAR: S1 and S2 present. No murmurs, rubs, or gallops. PULMONARY: Chest is clear to auscultation, no wheezing or crackles. ABDOMEN: Soft, nontender, nondistended, normoactive bowel sounds. No palpable organomegaly. MUSCULOSKELETAL: No joint swelling or deformity. EXTREMITIES: No cyanosis, clubbing, or pedal edema. NEUROLOGICAL: Gross neurological examination did not reveal any focal deficits. SKIN: No rashes. Assessment and plan Fall Pelvic fracture involving the right pubis bone and right ischium Hypertension Depression Monitor vital signs monitor CBC Continue pain management per orthopedics Continue DVT prophylaxis per orthopedics Continue Aldactone Resume home meds PT and OT recommend rehab Orthopedic following Labs and medication were reviewed.. Continue same treatment. Continue with symptomatic treatment. Resume home medication. Monitor labs and vitals. DVT and GI prophylaxis. Further recommendations as per clinical course of the patient Dictation was produced using [employer] dictation software. please excuse any grammatical, word or spelling errors. Objective - Vital Signs Vital signs: Vital Signs Temp 98.2 F 06/16/23 07:56 Pulse 72 06/16/23 07:56 Resp 17 06/16/23 07:56 BP 136/68 06/16/23 07:56 Pulse Ox 96 06/16/23 07:56 FiO2 Intake & Output 06/15/23 06/16/23 06/16/23 18:59 06:59 18:59 Output Total 400 400 Balance -400 -400 Weight 108.862 kg Output: Urine 400 400 Other: Voiding Method External Catheter External Catheter - Labs CBC & Chem 7: 06/16/23 10:20 06/16/23 10:20
--- NOTE | 2023-06-17 09:51 | P.DS ---
Providers Date of admission: 06/14/23 21:23 Expected date of discharge: 06/17/23 Attending physician: Iban Paula Consults: 06/14/23 21:23 Consult Physician Routine Consulting Provider: Tenisha Avalos Consult Reason/Comments: Medical management pubic rami fracture Do you want consulting provider notified?: Yes Primary care physician: Physician Nonstaff - Discharge Diagnosis(es) (1) Difficulty in walking Current Visit: Yes Status: Acute (2) History of ankle surgery Current Visit: Yes Status: Acute (3) Pubic ramus fracture Current Visit: Yes Status: Acute Hospital Course: Patient is a very pleasant 58-year-old male who is seen and examined at the bedside for further evaluation. He is status post fall yesterday, 06/14/2023. He states he was outside on his porch when he got up to go inside and he lost his balance falling backwards into the mulch. He states the fall was not that hard but he has been unable to mobilize since that time. He was brought to [facility] for further evaluation. After further imaging he was found to have right superior and inferior pubic rami fractures. He continues to have difficulty with mobilization. He was admitted to our service. He denies any other injuries at the time of the fall. He has a history of a left total hip arthroplasty. He has not had any difficulty with his left hip. He has a history of ankle fracture on the right requiring surgical intervention with stabilization performed by Dr. Cano. He states his hardware was recently removed in February 2023. He is recovering postoperatively without difficulty. He does admit to lymphedema in his right lower extremity. He does not have lymphedema in his left lower extremity. He states his right lower extremity chronically is externally rotated. He is currently admitted with plans for placement to a rehabilitation facility given his difficulty with his mobilization. Medicine has been consulted for his medical management during his admission to the hospital. His other medical diagnoses include liver disease with history of cirrhosis and hypertension. The patient is cleared from orthopedic standpoint for discharge to inpatient rehab. He is to follow-up in our office in 3 weeks for repeat x-ray evaluation. He may be weightbearing as tolerated to the right lower extremity with his boot on. Patient Condition at Discharge: Stable Plan - Discharge Summary Discharge Rx Participant: No New Discharge Prescriptions: New HYDROcodone/APAP 5-325MG [[place] 5-325] 1 - 2 tab PO Q6HR PRN #28 tab PRN Reason: Pain No Action Tolterodine ER [Detrol LA] 4 mg PO HS Thiamine [Vitamin B-1] 100 mg PO DAILY Pantoprazole Sodium [Protonix] 40 mg PO DAILY Doxycycline Hyclate 100 mg PO BID Folic Acid 1 mg PO DAILY Escitalopram [Lexapro] 20 mg PO DAILY Spironolactone 50 mg PO DAILY Propranolol [Inderal] 10 mg PO TID Discharge Medication List Escitalopram [Lexapro] 20 mg PO DAILY 02/22/23 [History] Folic Acid 1 mg PO DAILY 02/22/23 [History] Pantoprazole Sodium [Protonix] 40 mg PO DAILY 02/22/23 [History] Spironolactone 50 mg PO DAILY 02/22/23 [History] Thiamine [Vitamin B-1] 100 mg PO DAILY 02/22/23 [History] Tolterodine ER [Detrol LA] 4 mg PO HS 02/22/23 [History] Doxycycline Hyclate 100 mg PO BID 06/15/23 [History] Propranolol [Inderal] 10 mg PO TID 06/15/23 [History] HYDROcodone/APAP 5-325MG [[place] 5-325] 1 - 2 tab PO Q6HR PRN #28 tab 06/17/23 [Rx] Follow up Appointment(s)/Referral(s): Iban Paula DO [Doctor of Osteopathic Medicine] - 3 Weeks Nonstaff,Physician [Primary Care Provider] - 1-2 days Activity/Diet/Wound Care/Special Instructions: 1. Weight-bear as tolerated on the right lower extremity 2. Work with physical therapy to increase mobilization and ambulation 3. Patient may utilize walker to aid in ambulation as needed 4. Avoid excessive ambulation and activities with the right lower extremity Discharge/Stand Alone Forms: AA Meetings Dist & - [facility], AA Meetings [facility], [facility] Substance Abuse Facilities Discharge Disposition: TRANSFER TO SNF/ECF
--- NOTE | 2023-06-17 12:16 | P.PN ---
Subjective Progress Note Date: 06/17/23 patient is a 58-year-old gentleman with past medical history significant for hypertension who presented to the ER after a fall. Patient stated he was all right yesterday when while standing in the porch he tried to turn and lost his balance falling backwards into the mulch. Following that he could not able to move and had severe pain in his pelvic area. There was no complaint lightheaded or dizziness. There was no complaint of loss of consciousness. Denies any fever or chills. There is no complaint chest pain or shortness of breath. Because of the fall, patient was brought to the ER Initial lab work done in the ER showed WBC 6.9, hemoglobin 9.1, platelet count 119, sodium 137, potassium 4.1, BUN 19, creatinine 0.86, glucose 115 AST 60, ALT 25, alk phos 184, albumin 3.1 X-ray hip and pelvis done showed no acute fracture or dislocation in the pelvis or right hip there is a left hip prosthesis X-ray right femur done showed no significant abnormality CT pelvis done showed multiple pelvic fractures on the right involving the right pubic bone and right ischium Patient admitted to orthopedic service 06/15. Patient seen and examined. States right hip pain has improved. Working with PT and OT 06/16. Patient seen and examined.Vital signs on this morning showed temperature 98.1, heart rate 84, respiration 17, blood pressure 128/72. Blood work from yesterday showed WBC 4.2, hemoglobin 8.7, platelet count 87. Patient medically stable for discharge to rehab facility REVIEW OF SYSTEMS: CONSTITUTIONAL: No fever, no malaise,. CARDIOVASCULAR: No chest pain, no palpitations, no syncope. PULMONARY: No shortness of breath, no cough, GASTROINTESTINAL: No diarrhea, no abdominal pain. NEUROLOGICAL: No headaches, no weakness, PHYSICAL EXAMINATION: GENERAL: The patient is alert and oriented x3, not in any acute distress. Well developed, well nourished. HEENT: Pupils are round and equally reacting to light. EOMI. No scleral icterus. No conjunctival pallor. Normocephalic, atraumatic. No pharyngeal erythema. No thyromegaly. CARDIOVASCULAR: S1 and S2 present. No murmurs, rubs, or gallops. PULMONARY: Chest is clear to auscultation, no wheezing or crackles. ABDOMEN: Soft, nontender, nondistended, normoactive bowel sounds. No palpable organomegaly. MUSCULOSKELETAL: No joint swelling or deformity. EXTREMITIES: No cyanosis, clubbing, or pedal edema. NEUROLOGICAL: Gross neurological examination did not reveal any focal deficits. SKIN: No rashes. Assessment and plan Fall Pelvic fracture involving the right pubis bone and right ischium Hypertension Depression Monitor vital signs monitor CBC Continue pain management per orthopedics Continue DVT prophylaxis per orthopedics Continue Aldactone Resume home meds PT and OT recommend rehab Orthopedic following Patient medically stable for discharge to rehab facility Labs and medication were reviewed.. Continue same treatment. Continue with symptomatic treatment. Resume home medication. Monitor labs and vitals. DVT and GI prophylaxis. Further recommendations as per clinical course of the patient Dictation was produced using [employer] dictation software. please excuse any grammatical, word or spelling errors. Objective - Vital Signs Vital signs: Vital Signs Temp 98.1 F 06/17/23 07:34 Pulse 84 06/17/23 07:34 Resp 17 06/17/23 07:34 BP 128/72 06/17/23 07:34 Pulse Ox 97 06/17/23 07:34 FiO2 Intake & Output 06/16/23 06/17/23 06/17/23 18:59 06:59 18:59 Output Total 925 500 Balance -925 -500 Output: Urine 925 500 Other: Voiding Method External Catheter External Catheter - Labs CBC & Chem 7: 06/16/23 10:20 06/16/23 10:20 Labs: Abnormal Lab Results - Last 24 Hours (Table) 06/16/23 06/16/23 Range/Units 10:20 10:20 RBC 2.75 L (4.30-5.90) m/uL Hgb 8.7 L (13.0-17.5) gm/dL Hct 27.8 L (39.0-53.0) % MCV 100.9 H (80.0-100.0) fL RDW 16.0 H (11.5-15.5) % Plt Count 87 L (150-450) k/uL Lymphocytes # 0.7 L (1.0-4.8) k/uL Glucose 126 H (74-99) mg/dL Total Bilirubin 2.1 H (0.2-1.3) mg/dL Albumin 3.0 L (3.5-5.0) g/dL
[2023-06-17] MEDS: SENNOSIDES 8.6 MG TAB PO PRN (18:04)
[2023-06-18] MEDS: ACETAMINOPHEN TAB 325 MG TAB PO PRN (06:22)
[2023-06-18 07:49] VITALS: BP 134/62; PULSE 76; RESP 17; TEMP 98.3
--- NOTE | 2023-06-18 12:44 | P.PN ---
Subjective Progress Note Date: 06/18/23 patient is a 58-year-old gentleman with past medical history significant for hypertension who presented to the ER after a fall. Patient stated he was all right yesterday when while standing in the porch he tried to turn and lost his balance falling backwards into the mulch. Following that he could not able to move and had severe pain in his pelvic area. There was no complaint lightheaded or dizziness. There was no complaint of loss of consciousness. Denies any fever or chills. There is no complaint chest pain or shortness of breath. Because of the fall, patient was brought to the ER Initial lab work done in the ER showed WBC 6.9, hemoglobin 9.1, platelet count 119, sodium 137, potassium 4.1, BUN 19, creatinine 0.86, glucose 115 AST 60, ALT 25, alk phos 184, albumin 3.1 X-ray hip and pelvis done showed no acute fracture or dislocation in the pelvis or right hip there is a left hip prosthesis X-ray right femur done showed no significant abnormality CT pelvis done showed multiple pelvic fractures on the right involving the right pubic bone and right ischium Patient admitted to orthopedic service 06/15. Patient seen and examined. States right hip pain has improved. Working with PT and OT 06/16. Patient seen and examined.Vital signs on this morning showed temperature 98.1, heart rate 84, respiration 17, blood pressure 128/72. Blood work from yesterday showed WBC 4.2, hemoglobin 8.7, platelet count 87. Patient medically stable for discharge to rehab facility 06/17. Patient seen and examined. Being discharged to rehab today REVIEW OF SYSTEMS: CONSTITUTIONAL: No fever, no malaise,. CARDIOVASCULAR: No chest pain, no palpitations, no syncope. PULMONARY: No shortness of breath, no cough, GASTROINTESTINAL: No diarrhea, no abdominal pain. NEUROLOGICAL: No headaches, no weakness, PHYSICAL EXAMINATION: GENERAL: The patient is alert and oriented x3, not in any acute distress. Well developed, well nourished. HEENT: Pupils are round and equally reacting to light. EOMI. No scleral icterus. No conjunctival pallor. Normocephalic, atraumatic. No pharyngeal erythema. No thyromegaly. CARDIOVASCULAR: S1 and S2 present. No murmurs, rubs, or gallops. PULMONARY: Chest is clear to auscultation, no wheezing or crackles. ABDOMEN: Soft, nontender, nondistended, normoactive bowel sounds. No palpable organomegaly. MUSCULOSKELETAL: No joint swelling or deformity. EXTREMITIES: No cyanosis, clubbing, or pedal edema. NEUROLOGICAL: Gross neurological examination did not reveal any focal deficits. SKIN: No rashes. Assessment and plan Fall Pelvic fracture involving the right pubis bone and right ischium Hypertension Depression Monitor vital signs monitor CBC Continue pain management per orthopedics Continue DVT prophylaxis per orthopedics Continue Aldactone Resume home meds PT and OT recommend rehab Orthopedic following Patient medically stable for discharge to rehab facility Labs and medication were reviewed.. Continue same treatment. Continue with symptomatic treatment. Resume home medication. Monitor labs and vitals. DVT and GI prophylaxis. Further recommendations as per clinical course of the patie nt Dictation was produced using [employer] dictation software. please excuse any grammatical, word or spelling errors. Objective - Vital Signs Vital signs: Vital Signs Temp 98.3 F 06/18/23 06:51 Pulse 76 06/18/23 06:51 Resp 17 06/18/23 06:51 BP 134/62 06/18/23 06:51 Pulse Ox 97 06/18/23 06:51 FiO2 Intake & Output 06/17/23 06/18/23 06/18/23 18:59 06:59 18:59 Intake Total 900 Output Total 600 Balance -600 900 Intake: Oral 900 Output: Urine 600 Other: Voiding Method Toilet Toilet Urinal Urinal Urinal # Voids 3 - Labs CBC & Chem 7: 06/16/23 10:20 06/16/23 10:20
== END 2023-06-18 12:05 | DRG 536 ==
LOC: EC 17:42 → 4SSUR 21:23
PROVIDERS: ADMIT Orthopaedic Surgery Orthopaedic Surgery of the Spine; ATTEND Orthopaedic Surgery Orthopaedic Surgery of the Spine
DX: S32.511A Fracture of superior rim of right pubis, initial encounter for closed fracture (principal); K74.60 Unspecified cirrhosis of liver; E66.9 Obesity, unspecified; F32.A Depression, unspecified; I10 Essential (primary) hypertension; S32.591A Other specified fracture of right pubis, initial encounter for closed fracture; F17.210 Nicotine dependence, cigarettes, uncomplicated; I89.0 Lymphedema, not elsewhere classified; M17.11 Unilateral primary osteoarthritis, right knee; W01.0XXA Fall on same level from slipping, tripping and stumbling without subsequent striking against object, initial encounter; Z96.642 Presence of left artificial hip joint; Z87.81 Personal history of (healed) traumatic fracture; Z68.38 Body mass index [BMI] 38.0-38.9, adult; Z79.899 Other long term (current) drug therapy; Z88.0 Allergy status to penicillin
CPT/HCPCS: 36415; 72192; 73502; 80053; 85025; 85610; 85730; 99285